=== PATIENT | female | born 1970 | race Caucasian/White ===

== ENCOUNTER 2024-04-23 16:52 | Emergency (ER) | payer OTHER, SELFPAY ==
[2024-04-23 17:02] VITALS: BP 165/69; PULSE 76; RESP 16; TEMP 36.6; O2SAT 98
--- NOTE | 2024-04-23 21:57 | ED.GENADULT ---
HPI - General Adult General Chief complaint: Back Pain/Injury Stated complaint: back and legs numb x 3 days Time Seen by Provider: 04/23/24 21:48 History of Present Illness HPI narrative: patient 53-year-old female who presents emergency department chief complaint of back pain and increasing weakness. Patient reports that she is scheduled to have surgery on the 3rd mode reports that she has been having increasing pain in feels though her legs are little bit weaker. The patient reports no bowel or bladder dysfunction but does report that she has had some urgency which she has had to hernandez immediately to the bathroom before she would urinate or defecate. Patient denies fever denies any trauma Related Data Home Medications Medication Instructions Recorded Confirmed amlodipine 5 mg tablet 5 mg PO DAILY 03/30/24 aspirin 81 mg tablet,delayed 81 mg PO DAILY 03/30/24 release divalproex 500 mg tablet,delayed 500 mg PO Q12H 03/30/24 release Allergies Allergy/AdvReac Type Severity Reaction Status Date / Time Penicillins Allergy unknown Verified 03/30/24 14:59 Owapwji-DXU-WtC Reductase Allergy Unknown Verified 03/30/24 14:59 Inhibitor Sulfa (Sulfonamide Allergy Unknown Verified 03/30/24 14:59 Antibiotics) tramadol Allergy Unknown Verified 03/30/24 14:59 serequal Allergy Unknown Uncoded 03/30/24 14:59 welbutrin Allergy Unknown Uncoded 03/30/24 14:59 Review of Systems Review of Systems: A 10 system review of systems was completed on the patient and is negative except for what is stated in the HPI. Nursing and ancillary documentation was reviewed. [facility] Past Medical History Medical History Anxiety CAD (coronary artery disease) Diabetes GERD (gastroesophageal reflux disease) Headache Heart attack Heart disease Hypertension IBS (irritable bowel syndrome) Family History Family History Father Cancer Diabetes mellitus Hypertension Social History Social History Smoking status: Unknown if ever smoked Do You Feel Safe in your Home?: Yes Lack of Transportation: No Lack of Food: Never True Current Housing: I Have Housing Concerned About Future Housing: No Difficulty Paying Gas/Electric Bills: No Difficulty Paying for Meds: No Currently Unemployed: No Education: Bachelor's Degree Difficulty w/ Childcare or Family Care: No Exam Narrative: GENERAL: Well-appearing, well-nourished, and in no acute distress. HEAD: Normocephalic, atraumatic. EYES: PERRLA and EOMI. ENT: Nares clear, no rhinorrhea or epistaxis. Mucous membranes moist. NECK: Supple. CHEST: Clear to auscultation. No respiratory distress. HEART: Regular rate and rhythm. No murmur heard. Normal peripheral pulses. ABDOMEN: Soft, nontender, nondistended, normal active bowel sounds. EXTREMITIES: Normal range of motion. No edema. SKIN: Warm, dry, no rash. NEURO: No focal deficits. Alert and oriented x3. slight decrease in plantar flexion dorsiflexion of the left lower extremity compared to the right patient reports that she has had weakness there but feels as though it is a little bit more pronounced PSYCH: Normal mood and affect. Course Vital Signs Vital signs: Vital Signs Temperature 36.6 C 04/23/24 17:02 Pulse Rate 76 04/23/24 17:02 Respiratory Rate 16 04/23/24 17:02 Blood Pressure 165/69 H 04/23/24 17:02 Pulse Oximetry 98 04/23/24 17:02 Oxygen Delivery Room Air 04/23/24 17:02 Temperature 36.6 C 04/23/24 17:02 Pulse Rate 76 04/23/24 17:02 Respiratory Rate 16 04/23/24 17:02 Blood Pressure 165/69 H 04/23/24 17:02 Pulse Oximetry 98 04/23/24 17:02 Oxygen Delivery Room Air 04/23/24 17:02 Medical Decision Making [facility] Narrative Medical decision making narrative: nickie
[2024-04-23] MEDS: HYDROmorphone HCL INJ (*CRX) 1 MG/ML SYR IV PUSH (22:27)
[2024-04-23 22:40] LABS: Basophils Percent Auto 0.3 % (0.2-1.2); Eosinophils Absolute Auto 0.2 K/mm3 (0-0.3); Eosinophils Percent Auto 2.6 % (0-4.4); Hematocrit 39.7 % (37.0-47.0); Hemoglobin 13.5 g/dL (12.0-15.0); Immature Granulocyte Absolute 0.01 K/mm3 (0.00-0.031); Immature Granulocyte Percent A 0.1 % (0-0.5); Lymphocytes Absolute Auto 2.53 K/mm3 (0.9-3.2); Lymphocytes Percent Auto 37.1 % (18.3-44.2); Mean Corpuscular Hemoglobin 29.6 pg (26-34); Mean Corpuscular Volume 87.1 fl (80-100); Mean Platelet Volume 10.2 fl (7.4-10.4); Monocytes Absolute Auto 0.4 K/mm3 (0.1-0.6); Monocytes Percent Auto 5.7 % (2.6-8.5); Neutrophils Absolute Auto 3.7 K/mm3 (1.3-6.7); Neutrophils Percent Auto 54.2 % (45.5-73.1); Platelet Count Result 266 k/mm3 (150-375); Red Blood Count 4.56 M/mm3 (4.2-5.4); Red Cell Distribution Width 15.6 % (11.5-14.5); White Blood Count 6.8 K/mm3 (4.5-10.0)
[2024-04-23] MEDS: ONDANSETRON INJ 4 MG/2 ML VIAL IV PUSH (22:51)
[2024-04-23 23:00] LABS: Alanine Aminotransferase 23 U/L (6-35); Albumin Level 4.2 g/dL (3.5-5.1); Alkaline Phosphatase 63 U/L (38-126); Anion Gap 8 mmol/L (4-12); Aspartate Amino Transferase 24 U/L (14-36); Bilirubin,Total 0.2 mg/dL (0.2-1.3); Blood Urea Nitrogen 15 mg/dL (7-17); Calcium 9.1 mg/dL (8.4-10.2); Carbon Dioxide 29 mmol/L (22-30); Chloride 100 mmol/L (98-107); Estimated Glomerular Filt Rate > 60; Glucose 120 mg/dL (65-110); Potassium 3.6 mmol/L (3.4-5.0); Sodium 137 mmol/L (137-145)
[2024-04-24] MEDS: HYDROmorphone HCL INJ (*CRX) 1 MG/ML SYR IV PUSH (00:16)
[2024-04-24 00:53] VITALS: BP 118/87; PULSE 78; RESP 16; TEMP 36.6; O2SAT 98
== END 2024-04-24 00:55 | disposition home or self-care (01) ==
PROVIDERS: Emergency Provider Emergency Medicine; PCP Family Medicine
DX: M54.17 Radiculopathy, lumbosacral region (principal); I25.10 Atherosclerotic heart disease of native coronary artery without angina pectoris; I11.9 Hypertensive heart disease without heart failure; I25.2 Old myocardial infarction; E11.9 Type 2 diabetes mellitus without complications; K21.9 Gastro-esophageal reflux disease without esophagitis; K58.9 Irritable bowel syndrome, unspecified; Z79.82 Long term (current) use of aspirin; Z79.899 Other long term (current) drug therapy
CPT/HCPCS: 36415; 80053; 85025; 96374; 96375; 99284; J1170; J2405

== ENCOUNTER 2024-04-30 13:11 | Outpatient (CLI) | payer OTHER, SELFPAY ==
--- NOTE | ~2024-04-30 | XR_ITS ---
EXAMINATION: XR chest 2V 04/30/2024 13:50 INDICATION: Preop PROCEDURE: 2 view chest COMPARISON: No prior studies for comparison. FINDINGS: The lungs are clear. The cardiomediastinal silhouette is within normal limits. There are no pleural effusions. There is no pneumothorax suspected. IMPRESSION: 1: NO ACUTE CARDIOPULMONARY DISEASE. Reviewed, dictated and finalized at location B.
[2024-04-30 14:12] LABS: Hemoglobin A1C 5.8 % (<5.7)
[2024-04-30 14:27] LABS: Valproic Acid 33.3 ug/mL (50-120)
== END 2024-04-30 13:12 | disposition home or self-care (01) ==
PROVIDERS: Anesthesiology; PCP Family Medicine; Visit Provider Neurological Surgery
DX: Z01.818 Encounter for other preprocedural examination (principal); M54.17 Radiculopathy, lumbosacral region; G40.909 Epilepsy, unspecified, not intractable, without status epilepticus
CPT/HCPCS: 36415; 71046; 80164; 83036

== ENCOUNTER 2024-05-04 01:34 | Day surgery (SDC) | payer OTHER, SELFPAY ==
[2024-04-27 14:15] VITALS: BMI 32.8
--- NOTE | 2024-04-27 14:56 | PC.NURSE ---
Report to the Outpatient Waiting Room, entrance under the green pavilion located off [facility], at time _0700 on date 05/04/24 . Planned Procedure Time: 0900 .? Time changes happen often and if your time is changed the preop area will call you the afternoon before. - You and your visitor will be asked to self-screen and do not enter if you have any COVID symptoms. Please call surgeon if you need to reschedule. - A mask is optional within the hospital at this time. Patients may have clear liquids (water, carbonated beverages, clear teas, apple juice) until 3 hours prior to surgery with a maximum of 20 ounces. - No food from midnight until time of surgery and no smoking Take only the following medications with a SIP of water on the morning of surgery: NORVASC, PAIN PILL DO NOT STOP ANY OF YOUR OTHER PRESCRIPTION MEDICATIONS PRIOR TO SURGERY EXCEPT THE FOLLOWING Medications to discontinue per physician ASA Date to take last dose___PT ADVISED TO STOP ASA 5 DAYS PRIOR TO SURGERY __04/29/24 Please no make-up, nail nepali, hairspray, perfume, deodorant, or body powder the day of surgery.? No jewelry (including any body piercings) or valuables the day of surgery, leave them at home.? Please take a shower or bath the night before, or the morning of, surgery with an antibacterial soap.? Wear comfortable, loose fitting clothing.? Children are encouraged to wear pajamas. - Jewelry must be removed prior to entering the operating room.? Rings and piercings that are not removed may be cut off. - The hospital will not accept responsibility for valuables.? - Please leave all valuables, including medications, at home the day of surgery. If you are going home after surgery, a licensed lumber driver must drive you home.? - NO public transportation without another adult if you receive anesthesia. - We recommend that an adult stay with you for 24 hours following discharge. - We also recommend that you do not drive, make important decision, drink alcoholic beverages, or take any drugs that were not prescribed by your health care provider for at least 24 hours after your discharge time. Follow any additional instructions given to you from your surgeon. Telephone instructions given to __HEIDI and asked if any additional questions and then verbalized understanding. Patient advised to call surgeon office or pre surgery nurse liaison [phone] if any additional questions.
[2024-05-04] VITALS (10 sets, daily range): BP systolic 103–160; BP diastolic 64–82; PULSE 54–79; RESP 13–20; TEMP 36.2–36.3; O2SAT 98–100
--- NOTE | ~2024-05-04 | XR_ITS ---
XR fluoroscopy no charge Indication: Left L4-5 hemilaminectomy TECHNIQUE: Fluoroscopy used during Left L4-5 hemilaminectomy performed by [Jordy Bobo MD ] on 05/04/2024. 5 seconds of fluoroscopy with 2 fluoroscopic images captured. FINDINGS: Correlate with procedure note. IMPRESSION: Fluoroscopy used during Left L4-5 hemilaminectomy. Reviewed, dictated and finalized at location B.
[2024-05-04] MEDS: LACTATED RINGERS 1,000 ML 125 ML IV CONT (07:50)
[2024-05-04 08:10] LABS: Glucose Point of Care 110 mg/dl (65-105)
--- NOTE | 2024-05-04 08:38 | WPDANESEPPF ---
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 Patient Data Age: 53 Gender: F Height: 1.65 m Weight: 88.8 kg Last Vital Signs Temp 36.2 C L 05/04/24 07:11 Pulse 78 05/04/24 07:11 Resp 20 05/04/24 07:11 BP 154/82 H 05/04/24 07:11 Pulse Ox 100 05/04/24 07:11 O2 Del Method Room Air 05/04/24 07:11 Allergies Allergy/AdvReac Type Severity Reaction Status Date / Time Penicillins Allergy Intermediate RASH, RESP Verified 05/04/24 07:04 DISTRESS Xfjhjma-FLF-JoZ Reductase Allergy Intermediate INEFFECTIV Verified 05/04/24 07:04 Inhibitor E Sulfa (Sulfonamide Allergy Intermediate SWELLING, Verified 05/04/24 07:04 Antibiotics) RESP DISTRESS tramadol Allergy Intermediate RESP Verified 05/04/24 07:04 DISTRESS welbutrin Allergy Intermediate RESP Uncoded 05/04/24 07:04 DISTRESS, SWELLING Home Medications Medication Instructions Recorded Confirmed Type amlodipine 5 mg tablet 5 mg PO DAILY 03/30/24 05/04/24 History aspirin 81 mg tablet,delayed 81 mg PO DAILY 03/30/24 05/04/24 History release divalproex 500 mg tablet,delayed 500 mg PO Q12H 03/30/24 05/04/24 History release hydrocodone 5 mg-acetaminophen 325 1 tablet PO BID PRN pain #30 tabs 03/30/24 05/04/24 Rx mg tablet oxycodone-acetaminophen 5 mg-325 1 tablet PO Q6H PRN pain 3 days 04/23/24 04/27/24 Rx mg tablet (Percocet) #12 tabs ergocalciferol (vitamin D2) 1,250 1,250 mcg PO MONTHLY 04/27/24 05/04/24 History mcg (50,000 unit) capsule (Vitamin D2) Laboratory Tests 05/04/24 08:08 POC Capillary Glucose 110 H mg/dl (65-105) Patient hx anesthesia problems: none Family hx anesthesia problems: none Results Review: All pre-operative results and documents have been reviewed as part of the pre-operative evaluation. [facility] Past Medical History Medical History Anxiety CAD (coronary artery disease) Diabetes GERD (gastroesophageal reflux disease) Headache Heart attack Heart disease Hypertension IBS (irritable bowel syndrome) Family History Family History Father Cancer Diabetes mellitus Hypertension Social History Social History Smoking packs per day: 0.5 Smoking cigarettes per day: 10.0 Years smoked: 40 Smoking pack-years: 20.00 Smoking status: Former smoker Smoking end date: 09/01/22 Alcohol intake: never Substance use: never Substance use type: does not use Do You Feel Safe in your Home?: Yes Lack of Transportation: No Lack of Food: Never True Current Housing: I Have Housing Concerned About Future Housing: No Difficulty Paying Gas/Electric Bills: No Difficulty Paying for Meds: No Currently Unemployed: No Education: Bachelor's Degree Difficulty w/ Childcare or Family Care: No Living arrangements: with family Spiritual care concerns: No Anes - Eval Final PreProcedure Day of Procedure 05/04/24 08:38 Patient weight: obese Heart: regular rate and rhythm Lungs: decreased breath sounds Airway: Mallampati scale class 1 Neurological: alert and oriented Last oral intake: >/= 8 hours ASA classification: III Emergent: no Anesthetic plan: proceed Anesthesia type and monitoring: general ETT and standard monitoring Results Review: All pre-operative results and documents have been reviewed as part of the pre-operative evaluation. Informed Consent: The patient's anesthetic plan and its attendant risks and benefits were discussed with the patient/family/POA. Questions were solicited and answers provided to the satisfaction of the patient/family/POA.
--- NOTE | 2024-05-04 09:23 | PM.IMHP ---
H&P: HPI History of Present Illness Date/Time: 05/04/24 09:23 Chief Complaint: back and leg pain Narrative: Tammy is a 53-year-old female with a 9 year history of low back and mid back pain which has progressively worsened over the course of time. This has been especially bad the last couple of years. Her discomfort is both radicular and claudicatory. She has undergone multiple courses of physical therapy and frequent epidural steroid injections. apparently she saw a surgeon in the past who recommended decompression and fusion, likely at L4-5. She has been managed medically through Dr. Jackson who has been prescribing chronic opioids over the course of the past year. She has been prescribed upwards of 8 tablets of hydrocodone and or Percocet 5/325 mg tablets daily Although the patient states that she only takes 1 or 2 a day, typically. Physical therapy made her pain worse. She has participated in physical therapy courses at least twice. She continues home exercises as tolerated. However over the course of the past 1-2 years she has been developing progressive worsening of low back and lower extremity pain especially on the left side with weakness and numbness. Her pain is exacerbated by prolonged sitting, standing or walking. Pain will improve with sitting down or with forward flexion. She has been noticing increasing difficulty maintaining control of her bowel and bladder although this is somewhat vague as she describes urgency and not incontinence. Review of Systems Review of Systems: Const All systems reviewed & are unremarkable except as noted in HPI and below Denies chills, Denies fever(s), Denies weakness, Denies weight gain and Denies weight loss Eyes Denies change in vision and Denies diplopia ENT Denies neck pain and Denies disequilibrium Card Denies chest pain and Denies dyspnea Resp Denies cough and Denies dyspnea GI Denies abdominal pain, Denies change in bowel habits, Denies fecal incontinence and Denies vomiting Denies hematuria, Denies oliguria, Denies difficulty urinating, Denies dysuria, Denies urinary frequency, Denies urinary hesitancy, Denies urinary incontinence and Denies urinary urgency Musc Reports as per HPI, Reports back pain, Denies muscle weakness, Denies neck pain, Reports numbness and Denies stiffness Skin/ Breast Reports system reviewed and no additional complaints, except as documented Neuro Reports as per HPI, Denies burning sensations, Denies focal weakness, Reports numbness, Denies Other visual disturbances, Reports radicular pain, Reports paresthesias, Denies disequilibrium and Denies weakness Psych Reports no additional complaints, Denies depression and Denies hopelessness Endo Reports no additional complaints and Denies polyuria Justino/ Lymph Reports no additional complaints Aller/ Immun Reports no additional complaints PMFSH Past Medical History Medical History Anxiety CAD (coronary artery disease) Diabetes GERD (gastroesophageal reflux disease) Headache Heart attack Heart disease Hypertension IBS (irritable bowel syndrome) Family History Family History Father Cancer Diabetes mellitus Hypertension Social History Social History Smoking packs per day: 0.5 Smoking cigarettes per day: 10.0 Years smoked: 40 Smoking pack-years: 20.00 Smoking status: Former smoker Smoking end date: 09/01/22 Alcohol intake: never Substance use: never Substance use type: does not use Do You Feel Safe in your Home?: Yes Lack of Transportation: No Lack of Food: Never True Current Housing: I Have Housing Concerned About Future Housing: No Difficulty Paying Gas/Electric Bills: No Difficulty Paying for Meds: No Currently Unemployed: No Education: Bachelor's Degree Difficul
--- NOTE | 2024-05-04 09:26 | WPDHPUPDATE1 ---
History and Physical Update Update Date/Time: 05/04/24 09:26 History and Physical has been reviewed, including an updated exam of the patient. There are NO changes in the patient's condition. Risks, benefits, and alternatives have been discussed and questions answered. Patient agrees to proceed with procedure.
[2024-05-04] MEDS: ceFAZolin 2 GM/D5W 50 ML 2 GM/50 ML BAG IVPB (09:30)
[2024-05-04] MEDS: LIDO 1%/EPINEPHRINE 1:100,000 20 ML VIAL 10 ML INFILTRATE (09:52)
[2024-05-04] MEDS: LACTATED RINGERS 1,000 ML 30 ML IV CONT (10:53)
[2024-05-04] MEDS: fentaNYL CITRATE INJ (*CRX) 100 MCG/2 ML VIAL 25 MCG IV PUSH ×8 (11:00→11:36)
--- NOTE | 2024-05-04 11:00 | W.PM.PROC2 ---
Procedure Note - Detailed Date of Procedure 05/04/24 Pre-op Diagnosis L4-5 stenosis Post-op Diagnosis Same Procedure Performed Left L4-5 hemilaminectomy Surgeon Jordy Bobo MD Anesthesia General Description of Procedure The patient was brought to the operating room in the supine position, was sedated, intubated placed under general anesthesia in routine fashion. She was then turned into the prone position on a Enrico frame. The of operation on her back was examined, marked for incision, prepped and draped in routine sterile fashion. Incision was marked over the L4-L5 spinous processes in the midline. This area was injected with 0.5% lidocaine with [id number] epinephrine. Intravenous antibiotics were use prior to incision. Incision was made with 10 blade scalpel down to the lumbodorsal fascia. Subperiosteal dissection of the muscle soft tissue away from spinous process and lamina was performed with a subperiosteal elevator and Bovie cautery. A verifying x-rays obtained to verify the level of operation. A Midas Ziyad drill was used to perform a hemilaminectomy and medial facetectomy. Under microscopy the yellow ligament in the midline was removed using Kerrison punches. In the lateral recess 1st hips laterally and then contralaterally a dental instrument was used to define a plane with the dura. Curved curette was used to lift overgrown ligament. Kerrison punches were used to remove that ligament. This was done until a dental instrument could be placed in the lateral epidural space to confirm lack of compression and feel above and below the nerve root out to the foramen. The wound was then copiously irrigated with bacitracin irrigation all bleeding stopped with bipolar and Bovie cautery and Gelfoam thrombin powder. The wound was then closed in layered fashion with 2-0 Vicryl interrupted sutures in the lumbodorsal fascia and Julio's layer. 3-0 Vicryl buried interrupted sutures were placed in the dermis and skin was closed with a running 4-0 Monocryl subcuticular stitch and dressed with Dermabond. Patient was allowed to wake up in the operating room and was taken to the recovery room in stable condition. There were no immediate complications of this operation. All counts were reported correct in the case. Blood loss was 25 cc. The patient was neurologically at her baseline postoperatively. CPT codes: 05597, 01982, 22464 Estimated Blood Loss 25 IV Fluids 1,000 Complications None Condition Stable Disposition PACU [facility] Billing Surgery - Charge Forward: Surgery Billing
[2024-05-04] MEDS: HYDROmorphone HCL INJ (*CRX) 1 MG/ML SYR IV PUSH (12:00)
[2024-05-04] MEDS: oxyCODONE HCL (*CRX) 5 MG TAB IR PO (12:22)
== END 2024-05-04 13:08 | disposition home or self-care (01) ==
PROVIDERS: PCP Family Medicine; Visit Provider Neurological Surgery
PROC: (CPT 63005; principal; 2024-05-04 09:00)
DX: M48.062 Spinal stenosis, lumbar region with neurogenic claudication (principal); M54.17 Radiculopathy, lumbosacral region; I25.10 Atherosclerotic heart disease of native coronary artery without angina pectoris; E11.9 Type 2 diabetes mellitus without complications; I11.9 Hypertensive heart disease without heart failure; I25.2 Old myocardial infarction; K21.9 Gastro-esophageal reflux disease without esophagitis; F41.9 Anxiety disorder, unspecified; Z79.82 Long term (current) use of aspirin; Z87.891 Personal history of nicotine dependence; E66.9 Obesity, unspecified; Z68.32 Body mass index [BMI] 32.0-32.9, adult
CPT/HCPCS: 63047; 36415; 71046; 80164; 82948; 83036; 99199; A9270; J0330; J0690; J1100; J1170; J2250; J2405; J2704; J3010; J7120

== ENCOUNTER 2024-12-02 13:24 | Outpatient (CLI) | payer MEDICAID, SELFPAY ==
--- OUTSIDE RECORDS SUMMARY | 2024-12-02 13:49 | XMS_ITS | Clinical Summary ---
Author Organization [facility] Address [facility] [facility] [place] [address] Care Team Providers Care Band Saw Operator Cake Cutting Name Role Phone Milly Cordoba MD Primary Care Provider [phone] Source Comments [facility],non-owned Affiliates and Associated Physician Practices is amultiple site organization consisting of ambulatory clinics and hospital sitesin [place], [place], [place] and [place]. This disclosure is being madepursuant to the Care Everywhere program and may not contain all information available regarding this patient. Last updated 18.[facility] Allergies Active Allergy Reactions Criticality Noted Date Comments Bupropion Shortness of Breath,Angioedema High 01/23 Penicillins Rash Medium 11/05/2018 Fluoxetine Anaphylaxis High 08/30/2019 Quetiapine Shortness of Breath,Angioedema High 11/05 Sertraline Other Medium Mood swings Sulfa Drugs Rash,Unknown High 11/05/2018 Tramadol Other 12/15/2018 feel weird Medications * Be aware that medications may not be up to date on this document. Alwaysverify current medications with the patient. Medication Sig Dispensed Refills Start Date End Date Status divalproex ER 24hr (DEPAKOTE ER) 500 MG tablet Take 500 mg by mouth 2 times daily Active metFORMIN (GLUCOPHAGE) 500 MG tablet Take 1,000 mg by mouth 2 times daily with morning and evening meal Active aspirin EC (ECOTRIN) 81 MG tablet Take 81 mg by mouth once daily Active nitroGLYCERIN (NITROSTAT) 0.4 MG tablet Dissolve 0.4 mg under the tongue every 5 minutes as needed for Angina Active ONETOUCH DELICA LANCETS 33G MISC USE DIRECTED TO check sugar ONCE daily 2 04/29/2019 Active REPATHA SURECLICK 140 MG/ML auto-injector Inject 1 Pen subcutaneously every 14 days 11/30/2020 Active HYDROcodone-aceta minophen (NORCO) 5-325 MG tablet Take 1 (one) tablet to 2 (two) tablets by mouth every 6 hours as needed for Pain 28 tablet 01/01/2021 Active HYDROcodone-aceta minophen (NORCO) 5-325 MG tablet Take 1 (one) tablet by mouth every 6 hours as needed for Pain 20 tablet 01/05/2021 Active Active Problems Problem Noted Date Diagnosed Date Statin intolerance 09/26/2020 Overview (01/16/2021): Last Assessment & Plan: Seeing cardiology now - working on approval for injectable meds - Praluent or Repatha. CT (myocardial infarction) 08/23/2020 Overview (08/23/2020): Overview: TIMES 2 Chronic bilateral low back pain 08/19/2020 Overview (01/16/2021): Last Assessment & Plan: Seeing pain management, but needing new referral to provider closer to home. Will refer. I will manage her pain meds in the interim. History of fundoplication 02/28/2020 Overview (01/16/2021): Added automatically from request for surgery [id number] Chronic pain of both knees 12/28/2019 Overview (01/16/2021): Last Assessment & Plan: New and worsening Order xrays Order labs to r/o connective tissue d/o Take NSAID Chronic pain of both shoulders 12/28/2019 Overview (01/16/2021): Last Assessment & Plan: Opal TOMLIN Seeing ortho Doing PT Last Assessment & Plan: New and worsening Order xrays Order labs to r/o connective tissue d/o Take NSAID Hip pain, bilateral 12/28/2019 Overview (01/16/2021): Last Assessment & Plan: Opal TOMLIN New pain management referral Chronic fatigue 12/13/2019 Overview (01/16/2021): Last Assessment & Plan: Labs normal Possibly secondary to her PRAKASH so will get reevaluated Chronic neck pain 12/13/2019 Overview (01/16/2021): Last Assessment & Plan: Refer to new pain management Opal TOMLIN Last Assessment & Plan: Refer to new pain management in this area PRAKASH (obstructive sleep apnea) 12/13/2019 Overview (01/16/2021): Last Assessment & Plan: Uncontrolled possible Order referral to sleep center Atherosclerosis 10/25/2019 Epileptic seizure 10/16/2019 Anxiety 09/16/2019 Overview (01/16/2021): Last Assessment & Plan: Try Buspar Meds failed prior: Lexapro, Celexa, Zoloft, diazepam Vitamin D deficiency 09/16/2019 Overview (01/16/2021): Last Assessment & Plan: Stable Naturally controlled Chest pain 09/06/2019 Diabetes mellitus 06/15/2019 Type 2 diabetes mellitus wit hout complication, without long-term current use of insulin 06/15/2019 Overview (01/16/2021): Last Assessment & Plan: Stable, no changes. Continue current regimen with metformin. Will monitor glucose at home more closely. New meter/supplies sent to pharmacy. Will get report from eye exam. Taking Aspirin. Not on statin - intolerant. Seeing cardiology. 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 Gastroesophageal reflux disease without esophagi tis 12/17/2018 Claudication 09/15/2018 Seizure 09/14/2018 Essential hypertension 06/09/2018 Overview (01/16/2021): Last Assessment & Plan: Stable without meds Tobacco abuse counseling 06/09/2018 Shortness of breath 06/09/2018 Dyslipidemia 06/09/2018 Overview (01/16/2021): Last Assessment & Plan: Uncontrolled Add fish oil Cont zetia Coronary artery disease invo lving [place] coronary artery of [place] heart without angina pectoris 06/09/2018 Overview (01/16/2021): Last Assessment & Plan: On Plavix - h/o stenting and recent CT x 2 Immunizations Name Administration Dates Next Due INFLUENZA VACCINE 06/30/2019 INFLUENZA VACCINE, QUADR. (F LUZONE; FLULAVAL; FLUARIX; AFLURIA QUADRIVALENT; 6MO+), 0.5 ML (IIV4) 06/07/2018 Family History Medical History Relation Name Comments Diabetes - Type 1 Father Cancer - Colon Maternal Grandfather Cancer - Colon Maternal Grandmother CAD (Coronary Artery Disease) Paternal Grandmother Diabetes - Type 1 Paternal Grandmother Diabetes - Type 1 Sister Relation Name Status Comments Father Alive Maternal Grandfather Maternal Grandmother Mother Alive Paternal Grandfather Paternal Grandmother Sister Social History Tobacco Use Types Packs/Day Years Used Date Smoking Tobacco: Every Day Cigarettes Smokeless Tobacco: Never Tobacco Cessation:Ready to Q uit: No; Counseling Given: Yes Alcohol Use Standard Drinks/Week Comments Not Currently 0 (1 standard drink = 0.6 oz pur e alcohol) once/month Sex and Gender Information Value Date Recorded Sex Assigned at Not on file Gender Identity Not on file Sexual Orientation Not on file Last Filed Vital Signs Vital Sign Reading Time Taken Comments Blood Pressure 111/67 01/01/2021 3:02 PM CDT Pulse 65 01/01/2021 3:02 PM CDT Temperature 36.5 C (97.7 F) 01/01/2021 2:36 PM CDT Respiratory Rate 16 01/01/2021 3:02 PM CDT Oxygen Saturation 100% 01/01/2021 3:02 PM CDT Inhaled Oxygen Concentration - - Weight 88 kg (194 lb) 02/13/2021 10:31 AM CDT Height 165.1 cm (5' 5 ) 02/13/2021 10:31 AM CDT Body Mass Index 32.28 02/13/2021 10:31 AM CDT Plan of Treatment Health Maintenance Due Date Last Done Comments COLOGUARD (AGES 45-75) - COLON CA SCREENING 1972 CT COLONOGRAPHY - COLON CA SCREENING 1972 FIT - COLON CA SCREENING 1972 FLEX SIG - COLON CA SCREENING 1972 PAP SMEAR 1972 HIV SCREENING 1987 HEPATITIS C SCREENING 09/21/1990 DTAP/TDAP/TD VACCINES (1 - Tdap) 1991 HEPATITIS B VACCINE (1 of 3 - 19+ 3-dose series) 1991 PNEUMOCOCCAL VACCINE 50+ (1 of 2 - PCV) 1991 DIABETES-STATIN 2012 DIABETES RETINOPATHY SCREENING 08/23/2020 DIABETES-FOOT EXAM WITH MONOFILAMENT 08/23/2020 ZOSTER VACCINE (1 of 2) 2022 COVID-19 VACCINE (1 - 2023- season) 2024 DIABETES-HGB A1C 08/06/2024 02/05/2024, 08/04/2020 DEPRESSION SCREENING 09/01/2024 DIABETES - URINE PROTEIN SCREENING 09/01/2024 MAMMOGRAM 05/26/2025 05/26/2023, 08/18/2020 DIABETES-SERUM CREATININE 09/20/20252024, 09/20/2024, 02/05/2024, Additional history exists COLON MONITORING 10/02/2028 10/02/2018 COLONOSCOPY - COLON CA SCREENING 10/02/2028 10/02/2018 Colorectal Cancer Screening 10/02/2028 INFLUENZA VACCINE Completed 05/24/2024, , 06/01/2022, Additional history exists HIB VACCINE Aged Out No longer eligi ble based on patient's age to complete this topic HPV VACCINE Aged Out No longer eligi ble based on patient's age to complete this topic MENINGOCOCCAL (Group B) VACCINE SHARED DECISION-MAKING Aged Out No longer eligible based on patient's age to complete this topic MENINGOCOCCAL GROUPS A/C/Y/W VACCINE Aged Out No longer eligible based on patient's age to complete this topic Medical Devices Implanted Type Area Dry Placer Machine Operator Device Identifier Shelf Expiration Date Model / Serial / Lot Xience Stent Stent - Vascular Bioinductive Implant With Arthroscopic Delivery System Implanted:Qty: 1 on 01/01/2021 by Jordy Grewal MD at [facility] Left: Shoulder 08/22/2023 [id number] / / [id number] Description:MM Tendon Anchors Implanted:Qty: 1 on 01/01/2021 by Jordy Grewal MD at [facility] Left: Shoulder 06/26/2023 2504-1 / / [id number] Description:MM Bone Anchors Implanted:Qty: 1 on 01/01/2021 by Jordy Grewal MD at [facility] Left: Shoulder 10/17/2022 [id number] / / [id number] Description:MM Tendon Anchors Implanted:Qty: 1 on 01/01/2021 by Jordy Grewal MD at [facility] Left: Shoulder 10/13/2023 2504-1 / / [id number] Description:MM Procedures Procedure Name Priority Date/Time Associated Diagnosis Comments BASIC METABOLIC PANEL (CALCIUM TOTAL) AM Draw 12/18/2018 2:48 AM CDT Gastroesophageal reflux disease without esophagitis ENDOSCOPY, COLON, SCREENING Routine 10/02/2018 from Last 3 Months or Most Recently Relevant to Health Maintenance Results * (ABNORMAL) BASIC METABOLIC PANEL (CALCIUM TOTAL) (12/18/2018 2:48 AM CDT) Glucose 95 74 - 106 mg/dL 12/18/2018 3:50 AM CDT [facility] Sodium 139 136 - 145 mmol/L 12/18/2018 3:50 AM CDT [facility] Potassium 3.6 3.5 - 5.1 mmol/L 12/18/2018 3:50 AM CDT [facility] Chloride 106 98 - 107 mmol/L 12/18/2018 3:50 AM CDT [facility] CO2 28 22 - 31 mmol/L 12/18/2018 3:50 AM CDT [facility] Calcium 8.0(L) 8.5 - 10.1 mg/dL 12/18/2018 3:50 AM CDT [facility] Anion Gap 5(L) 8 - 16 mmol/L 12/18/2018 3:50 AM CDT [facility] BUN 10 7 - 21 mg/dL 12/18/2018 3:50 AM CDT [facility] Creatinine 0.74 0.50 - 1.30 mg/dL 12/18/2018 3:50 AM CDT [facility] eGFR by MDRD >60 >60 mL/min/1.7 3m2 12/18/2018 3:50 AM CDT [facility] eGFR by MDRD >60 >60 mL/min/1.7 3m2 12/18/2018 3:50 AM CDT [facility] Blood BLOOD SPECIMEN / Unknown Lab Venipuncture / Unknown 12/18/2018 2:48 AM CDT 12/18/2018 3:09 AM CDT Shelton Azevedo MD LAB - CHEMISTRY [facility] Organization Address City/State/ZIP Co de Phone Number [facility] [address] [id number] * ENDOSCOPY, COLON, SCREENING (10/02/2018) Scanned Document GI PROCEDURE ORDERAB LES from Last 3 Months or Most Recently Relevant to Health Maintenance Advance Directives * Full Code (Latest Code Status on File) Date Activated Date Inactivated Comments 12/17/2018 10:40 AM 12/18/2018 3:52 PM Care Teams Band Saw Operator Cake Cutting Relationship Specialty Start Date End Date Milly Cordoba MD [address] [place] [address] [phone] PCP - General 03/13/21
--- OUTSIDE RECORDS SUMMARY | 2024-12-02 13:49 | XMS_ITS | Encounter Summary ---
Author Organization [facility] Address [facility] [facility] [place] [address] Care Team Providers Care Head Up Operator Name Role Phone Milly Cordoba MD Primary Care Provider [phone] Patricia Nichols Primary Care Provider [phone] Milly Cordoba MD Primary Care Provider [phone] Vesna Parry MD Primary Care Provider [phone] Patricia Nichols Primary Care Provider [phone] Milly Cordoba MD Primary Care Provider [phone] Encounter Details Date Type Department Care Team (Late st Contact Info) Description 12/14/2019 Telephone [facility] [address] [place] [address] Isabelle Caldera, RN Social History Tobacco Use Types Packs/Day Years Used Date Smoking Tobacco: Every Day Cigarettes Smokeless Tobacco: Never Alcohol Use Standard Drinks/Week Comments Yes 0 (1 standard drink = 0.6 oz pur e alcohol) once/month Sex and Gender Information Value Date Recorded Sex Assigned at Not on file Gender Identity Not on file Sexual Orientation Not on file documented as of this encounter Progress Notes * Isabelle Caldera RN - 12/14/2019 10:43 AM CDT Reached out to pt to let her know we are thinking of her and we still have her on the list to schedule once we are able to schedule non-emergent procedures. Pt states she is doing well and understands scheduling delay. Pt thankful for call. documented in this encounter Plan of Treatment Not on file documented as of this encounter Visit Diagnoses Not on filedocumented in this encounter Care Teams Head Up Operator Relationship Specialty Start Date End Date Milly Cordoba MD [address] [place] [phone] PCP - General Family Medicine 10/27/18 12/04/20 Patricia Nichols PA [address] [facility] [address] [place] [phone] PCP - General Physician Cutter Head Sharpener 12/05/20 12/24/20 Milly Cordoba MD [address] [place] [phone] PCP - General 12/25/20 12/28/20 Vesna Parry MD [address] [facility] [address] [place] [address] [phone] PCP - General Family Medicine 12/29/20 01/10/21 Patricia Nichols PA [address] [facility] [address] [place] [address] [phone] PCP - General 01/11/21 03/12/21 Milly Cordoba MD [address] [place] [phone] PCP - General 03/13/21 documented as of this encounter
--- OUTSIDE RECORDS SUMMARY | 2024-12-02 13:49 | XMS_ITS | Clinical Summary ---
Author Organization [facility] Address [address] [place] [address] Phone Care Team Providers Care Hospice/Home Health Aide Name Role Phone Milly Cordoba MD Primary Care Provider [phone] Andrzej Kelsey MD Unavailable [phone] Allergies Active Allergy Reactions Criticality Noted Date Comments Bupropion Swelling,Shortness o f Breath High 11/24/2014 Citalopram Anxiety Low 10/25/2019 Colesevelam Anaphylaxis High 06/27/2020 Dapagliflozin Other (see Comments) Low 03/15/2021 Headache Dexlansoprazole Nausea 03/09/2024 Patient was dizzy, felt like throat was closing and rash, itching and felt like she was going to pass out. Famotidine Itching Low 01/21/2020 Fluoxetine Anaphylaxis,Other (s ee Comments) High 02/03/2018 mean and suicidal Lisinopril Swelling High 02/19/2022 Throat swelled Metformin Diarrhea Low 03/15/2021 Omeprazole Anaphylaxis 03/09/2024 Reaction against dexilant Penicillins Rash Medium 11/24/2014 Quetiapine Anaphylaxis,Swelling ,Barbi rtness of Breath High 11/24/2014 Rosuvastatin Other (see Comments) Low 12/28/2019 Statins Unknown 02/27/2024 Sulfa Antibiotics Rash,Swelling,Unknown High 015 Tramadol Nausea,Other (see Comments),Rash High 12/15/2018 feel weird feel weird Other reaction(s): Suicidal Ideation Medications aspirin EC 81 MG Tablet Delayed Response Take 1 Tablet by mouth daily. Active Continuous Blood Gluc Service Architect (Dexcom G7 Service Architect) Device USE DIRECTED along with sensors Active Insulin Pen Needle (B-D ULTRAFINE III SHORT PEN) 31G X 8 MM Misc USE TO INJECT 1 TIME DAILY DIRECTED. 2 Active OneTouch Delica Lancets 33G Misc USE DIRECTED TO check sugar ONCE daily 9 Active ondansetron (Zofran) 4 MG Tablet Take 1 Tablet by mouth every 8 hours as needed for Nausea - 1st line. 15 Tablet 4 Active hydrOXYzine (VISTARIL) 25 MG Capsule Take 1 Capsule by mouth 3 times daily as needed for Anxiety. 90 Capsule 4 Active ergocalciferol (VITAMIN D) 81672 UNIT Capsule Take 1 Capsule by mouth once a week. 5 Capsule 1 4 Active Continuous Glucose Sensor (Dexcom G7 Sensor) Misc CHANGE sensor EVERY 10 DAYS 3 Each 2 4 Active ondansetron (ZOFRAN) 4 MG TabletIndication s:Nausea TAKE ONE TABLET BY MOUTH EVERY 8 HOURS NEEDED FOR NAUSEA 60 Tablet 2 4 Active sucralfate (CARAFATE) 1 GM Tablet TAKE ONE TABLET BY MOUTH EVERY 6 HOURS 120 Tablet 1 4 Active senna-docusate (SENOKOT S) 8.6-50 MG Tablet Take 1 Tablet by mouth. 4 Active famotidine (PEPCID) 20 MG Tablet Take 20 mg by mouth 2 times daily. 4 Active Evolocumab (Repatha SureClick) 140 MG/ML Solution Auto-injector 140 mg by Subcutaneous route. 4 Active amLODIPine (NORVASC) 5 MG TabletIndication s:Primary hypertension Take 1 Tablet by mouth every morning. 90 Tablet 3 5 Active HYDROcodone-acet aminophen (NORCO) 7.5-325 MG TabletIndication s:Abdominal wound dehiscence, sequela,Chronic midline low back pain with bilateral sciatica Take 1 Tablet by mouth 6 times daily. 180 Tablet 5 Active Tirzepatide (Mounjaro) 5 MG/0.5ML Solution Auto-injectorInd ications:Control led type 2 diabetes mellitus with diabetic polyneuropathy, without long-term current use of insulin (HCC) 0.5 mL by Subcutaneous route once a week. 6 mL 1 5 Active divalproex (DEPAKOTE ER) 500 MG TABLET SR 24 HR Take 1 Tablet by mouth 2 times daily. 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 Chronic bilateral low back pain 08/19/2020 Overview (09/20/2024): Last Assessment & Plan: Seeing pain management, but needing new referral to provider closer to home. Will refer. I will manage her pain meds in the interim. History of fundoplication 02/28/2020 Overview (09/20/2024): Added automatically from request for surgery [id number] Added automatically from request for surgery [id number] S/P right knee arthroscopy 02/28/2020 Overview (09/20/2024): Added automatically from request for surgery [id number] Chronic pain of both shoulders 12/28/2019 Overview (09/20/2024): Last Assessment & Plan: [place] [facility] Seeing ortho Doing PT Last Assessment & Plan: New and worsening Order xrays Order labs to r/o connective tissue d/o Take NSAID Chronic bilateral thoracic back pain 12/13/2019 Chronic fatigue 12/13/2019 Overview (09/20/2024): Last Assessment & Plan: Labs normal Possibly secondary to her PRAKASH so will get reevaluated PRAKASH (obstructive sleep apnea) 12/13/2019 Overview (09/20/2024): Last Assessment & Plan: Uncontrolled possible Order referral to sleep center Last Assessment & Plan: Uncontrolled possible Order referral to sleep center Atherosclerosis 10/25/2019 Epileptic seizure 10/16/2019 Epilepsy 10/15/2019 Overview (09/20/2024): Last Assessment & Plan: Stable Anxiety 09/16/2019 Overview (09/20/2024): Last Assessment & Plan: Try Buspar Meds failed prior: Lexapro, Celexa, Zoloft, diazepam Last Assessment & Plan: Try Buspar Meds failed prior: Lexapro, Celexa, Zoloft, diazepam PR (myocardial infarction) 09/16/2019 Overview (09/20/2024): TIMES 2 CHRISTIANNE (generalized anxiety disorder) 09/16/2019 Vitamin D deficiency 09/16/2019 Overview (09/20/2024): Last Assessment & Plan: Repeat levels Last Assessment & Plan: Stable Naturally controlled Fracture of phalanx of finger 09/12/2019 Diabetes mellitus 06/15/2019 Type 2 diabetes mellitus wit hout complication, without long-term current use of insulin 06/15/2019 Overview (09/20/2024): Last Assessment & Plan: Stable, no changes. Continue current regimen with metformin. Will monitor glucose at home more closely. New meter/supplies sent to pharmacy. Will get report from eye exam. Taking Aspirin. Not on statin - intolerant. Seeing cardiology. 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 Claudication 09/15/2018 Seizure 09/13/2018 Dyslipidemia 06/09/2018 Overview (09/20/2024): Last Assessment & Plan: Uncontrolled Add fish oil Cont zetia Essential hypertension 06/09/2018 Overview (09/20/2024): Last Assessment & Plan: Stable without meds Tobacco abuse counseling 06/09/2018 Encounters Date Type Department Care Team Description 09/29/2024 MyChart RX Renewal [facility] [place] [address] Milly Cordoba MD Medication Renewal Declined 09/20/2024 3:20 PM [facility] [place] [address] Other fatigue Discharge Disposition: Discharged to home or Selfcare 09/20/2024 1:15 PM [employer] [facility] Office Visit [facility] [place] [address] Latisha Ewing, INVESTMENT ANALYST, SPECIAL POLICE Chronic neck and back pain (Primary Dx); Chronic midline low back pain without sciatica; Other fatigue Discharge Disposition: Discharged to home or Selfcare 09/20/2024 Results Follow-Up [facility] [place] [address] Latisha Ewing APRN, SPECIAL POLICE 09/20/2024 Travel 09/03/2024 2:00 PM [facility] [employer] [address] [place] [address] Milly Cordoba MD Abdominal wound dehiscence, sequela (Primary Dx); Chronic midline low back pain with bilateral sciatica; Primary hypertension; Controlled type 2 diabetes mellitus with diabetic polyneuropathy, without long-term current use of insulin (HCC) Discharge Disposition: Discharged to home or Selfcare from Last 3 Months Immunizations Immunization Administration Dates Next Due Influenza Vaccine, Quadrivalent, PF 07/02/2023,1 ,06/06/2018 Influenza Vaccine,unspecifie d Formulation 06/01/2022,07/30/2021,06/01/2020,06/30 Influenza, Injectable, Quadrivalent 06/18/2019 Influenza,Split Virus,Trivalent,Injectable,PF 05/24/2024 Pneumococcal Vaccine Adult - 23 Valent 9 Pneumococcal conjugate PCV20 , polysaccharide [id number] conjugate, adjuvant, PF 05/24/2024 Tuberculin Skin Test; Purifi ed Protein Derivative Solutiol 12/10/2019 Family History Medical History Relation Name Comments Cancer Father Oral Diabetes Father Hypertension Father Cancer Maternal Grandfather Cancer Maternal Grandmother Anemia Mother Other-comment Mother Kidney disease Relation Name Status Comments Father Alive Maternal Grandfather Maternal Grandmother Mother Alive Social History Tobacco Use Types Packs/Day Years Used Date Smoking Tobacco: Former Cigarettes Q uit: 12/12/1982 Passive Smoke Exposure: Never Smokeless Tobacco: Never Tobacco Cessation:Counseling Given: Not Answered Alcohol Use Standard Drinks/Week Comments Not Currently 0 (1 standard drink = 0.6 oz pur e alcohol) [facility] Utilities Answer Date Recorded In the past 12 months has e [employer], gas, oil, or water [employer] threatened to shut off services in your home? Patient declined 09/20/2024 Social Connection and Isolation Panel [NHANES] A nswer Date Recorded In a typical week, how many times do you talk on the phone with family, friends, or neighbors? Patient declined 09/20/2024 How often do you get togethe r with friends or relatives? Patient declined 09/20/2024 How often do you attend hindu or uatsdin serv ices? Patient declined 09/20/2024 Do you belong to any clubs o r organizations such as hindu groups, unions, fraternal or athletic groups, or school groups? Patient declined 09/20/2024 How often do you attend meet ings of the clubs or organizations you belong to? Patient declined 09/20/2024 Are you , , di vorced, , never , or living with a partner? 09/20/2024 AUDIT-C Answer Date Recorded Q1: How often do you have a drink containing alcohol? Never 09/20/2024 Q2: How many drinks containi ng alcohol do you have on a typical day when you are drinking? Patient does not drink Q3: How often do you have si x or more drinks on one occasion? Never 09/20/2024 Overall Financial Resource Strain (CARDIA) Answe r Date Recorded How hard is it for you to pa y for the very basics like food, housing, medical care, and heating? Patient declined 09/20/2024 [facility] - Occupational Stress Questionnaire Answer Date Recorded Do you feel stress - tense, restless, nervous, or anxious, or unable to sleep at night because your mind is troubled all the time - these days? Patient declined 09/20/2024 Exercise Vital Sign Answer Date Recorde d On average, how many days pe r week do you engage in moderate to strenuous exercise (like a brisk walk)? 0 days 09/20/2024 On average, how many minutes do you engage in exercise at this level? 0 min 09/20/2024 Hunger Vital Sign Answer Date Recorded Within the past 12 months, y ou worried that your food would run out before you got the money to buy more. Patient declined Within the past 12 months, t he food you bought just didn't last and you didn't have money to get more. Patient declined PRAPARE - Transportation Answer Date Re corded In the past 12 months, has l ack of transportation kept you from medical appointments or from getting medications? Patient declined 09/20/2024 In the past 12 months, has l ack of transportation kept you from meetings, work, or from getting things needed for daily living? Patient declined 09/20/2024 Housing Stability Vital Sign Answer Js e Recorded In the last 12 months, was t here a time when you were not able to pay the mortgage or rent on time? No 01/28/2024 In the last 12 months, how many places have you lived? 1 01/28/2024 In the last 12 months, was t here a time when you did not have a steady place to sleep or slept in a alf (including now)? No 01/28/2024 Housing Stability Vital Sign Answer Js e Recorded In the last 12 months, was t here a time when you were not able to pay the mortgage or rent on time? Patient declined 09/20/19 25 In the past 12 months, how m any times have you moved where you were living? 0 09/20/2024 At any time in the past 12 m [facility], were you homeless or living in a alf (including now)? Patient declined 09/20/2024 Comments No Sex and Gender Information Value Date Recorded Sex Assigned at Not on file Legal Sex Female 1:38 PM CDT Gender Identity Not on file Sexual Orientation Not on file Last Filed Vital Signs Vital Sign Reading Time Taken Comments Blood Pressure 135/80 09/20/2024 1:13 PM [facility] Pulse 81 09/20/2024 1:13 PM [employer] Temperature 36.9 C (98.4 F) 09/20/2024 1:13 PM [facility] Respiratory Rate 18 09/20/2024 1:13 PM [facility] [employer] Oxygen Saturation 98% 09/20/2024 1:13 PM [employer] [employer] Inhaled Oxygen Concentration - - Weight 88.9 kg (196 lb) 09/20/2024 1:13 PM [facility] Height 166.4 cm (5' 5.5 ) 09/20/2024 1:13 PM [facility] Body Mass Index 32.12 09/20/2024 1:13 PM [facility] Plan of Treatment Health Maintenance Due Date Last Done Comments Diabetes: Eye Exam 1972 Diabetes: Foot Exam 1972 Hepatitis C Virus (HCV) Screening 1972 TdaP Immunization 1972 Hepatitis B Immunization (1 of 3 - 19+ 3-dose series) 1991 Cologuard 2022 Immunochemical Fecal Occult Blood 2022 Zoster Immunization (1 of 2) 2022 SARS-COV-2 Immunization ( season) 2024 09/05/2021, 03/05/2021, 02/05/2021 Mammogram 05/26/2024 05/26/2023, 05/03, 02/21/2020, Additional history exists Diabetes: Hemoglobin A1c 12/08/2024 024, 02/05/2024, 02/05/2024, Additional history exists Diabetes: Nephropathy Screening 09/20/2025 09/20/2024, 02/05/2024 Colonoscopy 01/05/2032 01/04/2022, 10/01/2018 Colorectal Cancer Screening 01/05/2032 Respiratory Syncytial Virus (RSV) Immunization (Adult) (1 - 1-dose 75+ series) 2047 01/04/2022, 10/01/2018 Influenza Immunization Completed , 07/02/2023, 06/01/2022, Additional history exists Pneumococcal Immunization (50+ years) Completed 05/24/2024, 06/18/2019 Pneumococcal Immunization Combined Discontinued 05/24/2024, 06/18/2019 Meningococcal Immunization (ACWY) Aged Out No longer eligible based on patient's age to complete this topic Rotavirus Immunization Aged Out No lo nger eligible based on patient's age to complete this topic Procedures Procedure Name Priority Date/Time Associated Diagnosis Comments NEUROSURGY CONSULT 10/12/2024 12 :00 AM [facility] CBC WITH AUTO DIFFERENTIAL Routine 09/20/2024 2:07 PM [employer] Other fatigue CMP (COMPREHENSIVE METABOLIC PANEL) Routine 09/20/2024 2:07 PM [employer] Other fatigue COMPLETE BLOOD COUNT (CBC) WITH DIFF Routine 09/20/2024 2:07 PM [employer] Other fatigue HEMOGLOBIN A1C W/ ESTIMATED GLUCOSE Routine 02/05/2024 1:20 PM CDT Leg cramps from Last 3 Months or Most Recently Relevant to Health Maintenance Results * NEUROSURGY CONSULT (10/12/2024 12:00 AM [facility] [employer] [facility]) 10/12/2024 us Provider Scan GENERIC SCAN ORDERS CONSULT Nicole euceda Result SCAN * CBC WITH AUTO DIFFERENTIAL (09/20/2024 2:07 PM [facility] [employer]) WBC 5.21 4.00 - 12.00 10(3)/mcL 09/20/2024 3:10 PM [facility] RBC 4.47 3.80 - 5.30 10(6)/mcL 09/20/2024 3:10 PM [facility] HEMOGLOBIN (HGB) 12.9 12.0 - 15.8 g/dL 09/20/2024 3:10 PM [facility] HEMATOCRIT (HCT) 38.9 36.0 - 47.0 % 09/20/2024 3:10 PM [facility] MCV 87.0 82.0 - 96.0 fL 09/20/2024 3:10 PM [facility] MCH 28.9 26.0 - 34.0 pg 09/20/2024 3:10 PM [facility] MCHC 33.2 31.0 - 36.0 g/dL 09/20/2024 3:10 PM [facility] PLATELET COUNT 306 140 - 440 10(3)/mcL 09/20/2024 3:10 PM [facility] RDW 15.4 11.8 - 15.5 % 09/20/2024 3:10 PM [facility] MPV 10.7 9.7 - 12.4 fL 09/20/2024 3:10 PM [facility] NEUTROPHILS 49.8 47.0 - 73.0 % 09/20/2024 3:10 PM [facility] LYMPHOCYTES 38.0 18.0 - 42.0 % 09/20/2024 3:10 PM [facility] MONOCYTES 8.3 4.0 - 12.0 % 09/20/2024 3:10 PM [facility] EOSINOPHILS 3.5 0.0 - 5.0 % 09/20/2024 3:10 PM [facility] BASOPHILS 0.4 0.0 - 1.0 % 09/20/2024 3:10 PM [facility] ABSOLUTE NEUTROPHILS 2.60 1.60 - 7.70 10(3)/mcL 09/20/2024 3:10 PM [facility] ABSOLUTE LYMPHOCYTES 1.98 1.30 - 3.20 10(3)/[facility] 09/20/2024 3:10 PM [employer] ABSOLUTE MONOCYTES 0.43 0.20 - 1.00 10(3)/[facility] 09/20/2024 3:10 PM [facility] [employer] [facility] ABSOLUTE EOSINOPHIL 0.18 0.00 - 0.40 10(3)/[facility] 09/20/2024 3:10 PM [facility] [employer] ABSOLUTE BASOPHILS 0.02 0.00 - 0.10 10(3)/[facility] 09/20/2024 3:10 PM [employer] NRBC PER 100 WBC 0 09/20/19 3:10 PM [facility] Blood Venipuncture / Unknown 09/20/2024 2:07 PM [facility] 09/20/2024 2:07 PM [facility] [employer] us Latisha Ewing INVESTMENT ANALYST, SPECIAL POLICE HEMATOLOGY ORDERABLES Nicole l Result [facility] [place] [address] * (ABNORMAL) CMP (COMPREHENSIVE METABOLIC PANEL) (09/20/2024 2:07 PM [facility]) SODIUM 141 136 - 145 mmol/L 09/20/2024 3:34 PM [facility] [employer] POTASSIUM 4.2 3.5 - 5.1 mmol/L 09/20/2024 3:34 PM [facility] CHLORIDE 104 98 - 107 mmol/L 09/20/2024 3:34 PM [facility] CO2, VENOUS 31(H) 22 - 30 mmol/L 09/20/2024 3:34 PM [facility] [employer] ANION GAP 10.2 <18.0 mmol/L 09/20/2024 3:34 PM [facility] GLUCOSE 75 70 - 99 mg/dL 09/20/2024 3:34 PM [facility] BUN 8(L) 10 - 20 mg/dL 09/20/2024 3:34 PM [facility] CREATININE, BLOOD 0.74 0.60 - 1.00 mg/dL 09/20/2024 3:34 PM [facility] BUN/CREATININE RATIO 11(L) 12 - 20 ratio 09/20/2024 3:34 PM [facility] TOTAL PROTEIN 7.5 6.0 - 8.0 g/dL 09/20/2024 3:34 PM [facility] ALBUMIN 4.1 3.5 - 5.0 g/dL 09/20/2024 3:34 PM [facility] A/G RATIO 1.2 1.0 - 2.2 09/20/2024 3:34 PM [facility] CALCIUM 9.4 8.7 - 10.5 mg/dL 09/20/2024 3:34 PM [facility] T BILI 0.2 0.2 - 1.2 mg/dL 09/20/2024 3:34 PM [facility] SGOT (AST) 26 6 - 42 U/L 09/20/2024 3:34 PM [facility] SGPT (ALT) 27 6 - 55 U/L 09/20/2024 3:34 PM [facility] ALKALINE PHOSPHATASE 58 40 - 150 U/L 09/20/2024 3:34 PM [facility] IS THE PATIENT REQUIRED TO BE FASTING? No 09/20/2024 3:34 PM [facility] GFR, ESTIMATED >60 >=60 09/20/2024 3:34 PM [facility] Comment: Creatinine Clearance is the preferred criteria for selecting drug dose adjustments in renally impaired patients. The GFR is provided as additional pertinent clinical information. GFR is reported in mL/min/1.73 sq m. Calculation based on the Chronic Kidney Disease Epidemiology Collaboration (CKD- EPI) equation refit without adjustment for race. GFR, EST. >60 >=60 025 3:34 PM [employer] GFR, EST. NONAFRICAN >60 >=60 09/20/2024 3:34 PM [facility] Blood Venipuncture / Unknown 09/20/2024 2:07 PM [facility] 09/20/2024 2:07 PM [facility] Latisha Ewing APRN, CNP CHEMISTRY ORDERABLES Final Result Performing Organization Address City/[facility]/ZIP Co de Phone Number [facility] [place] [address] * HEMOGLOBIN A1C W/ ESTIMATED GLUCOSE (02/05/2024 1:20 PM CDT) HGB-A1C 5.6 4.0 - 6.0 % 02/05/2024 2:37 PM CDT [facility] Est Average Glucose 114.0 mg/dL 02/05/2024 2:37 PM CDT [facility] Blood Venipuncture / Unknown 02/05/2024 1:20 PM CDT 02/05/2024 1:20 PM CDT Narrative [facility] - 02/05/2024 2:37 PM CDT HEMOGLOBIN A1C: DIABETIC PATIENTS: WELL-CONTROLLED: 6.2 - 7.0 INTERMEDIATE WELL-CONTROLLED: 7.0 - 9.0 POORLY-CONTROLLED: >9.0 us Milly Cordoba MD CHEMISTRY ORDERABLES Final Result Performing Organization Address City/[facility]/ZIP Co de Phone Number [facility] [place] [address] from Last 3 Months or Most Recently Relevant to Health Maintenance [place] [address] [place] [address] [place]ICA[place] Care Teams Hospice/Home Health Aide Relationship Specialty Start Date End Date Milly Cordoba MD [address] [place] [address] PCP - General Family Medicine 12/09/23 Andrzej Kelsey MD [address] [id number] Consulting Physician General Surgery 03/25/24
--- OUTSIDE RECORDS SUMMARY | 2024-12-02 13:49 | XMS_ITS | Encounter Summary ---
Author Organization [facility] Healthcare Address [address] [place] [address] Care Team Providers Care Optical Goods Drill Operator Name Role Phone Lele Millan DO Unavailable [phone] Patricia Nichols Primary Care Provider + Encounter Details Date Type Department Care Team (Late st Contact Info) Description 11/09/2024 Results Follow-Up [facility] Family Medicine [address] [phone] Patricia Nichols PA [address] [place] [address] Social History Tobacco Use Types Packs/Day Years Used Date Smoking Tobacco: Every Day Cigarettes 0.5 40 Last attempted to quit: 12/12/1982 Smokeless Tobacco: Never Comments:going to quit for s urgery she stated 02/19/22 per the surgeon request last smoked yesterday Alcohol Use Standard Drinks/Week Comments Not Currently 0 (1 standard drink = 0.6 oz pur e alcohol) AUDIT-C Answer Date Recorded Q1: How often do you have a drink containing alcohol? Never 06/11/2024 Q2: How many drinks containi ng alcohol do you have on a typical day when you are drinking? Patient does not drink Q3: How often do you have si x or more drinks on one occasion? Never 06/11/2024 PHQ-2 Answer Date Recorded PHQ-2 Total Score (If total score is 3 or more points, staff should administer the PHQ-9) 0 11/11/2024 PHQ-9 Answer Date Recorded PHQ-9 Total Score 8 07/14/2024 Personal Safety Answer Date Recorded Have you ever been in or are you currently in a harmful physical or emotional relationship or is someone making you feel afraid or unsafe? 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
--- OUTSIDE RECORDS SUMMARY | 2024-12-02 13:49 | XMS_ITS ---
Author Organization Unknown Address [address], [place] [id number] Phone Care Team Providers Care Blue Leather Setter Name Role Phone KALEB FAGAN Attending Unavailable Immunization Immunization Date Status Additional Notes Code Code System Pneumococcal conjugate PCV20 , polysaccharide [id number] conjugate, adjuvant, PF 05/24/2024 Completed 216 CVX COVID-19, mRNA, LNP-S, PF, 1 00 mcg/0.5mL dose or 50 mcg/0.25mL dose 09/05/2021 Completed 207 CVX COVID-19, mRNA, LNP-S, PF, 1 00 mcg/0.5mL dose or 50 mcg/0.25mL dose 03/05/2021 Completed 207 CVX COVID-19, mRNA, LNP-S, PF, 1 00 mcg/0.5mL dose or 50 mcg/0.25mL dose 02/05/2021 Completed 207 CVX Influenza, split virus, quadrivalent, preservative 06/18/2019 Completed 158 C VX Influenza, split virus, quadrivalent, PF 07/02/2023 Completed 150 CVX Influenza, split virus, quadrivalent, PF 06/15/2021 Completed 150 CVX Influenza, split virus, quadrivalent, PF 06/06/2018 Completed 150 CVX Influenza, split virus, trivalent, PF 05/24/2024 Completed 140 CVX influenza, unspecified formulation 06/30/2019 Completed 88 CVX influenza, unspecified formulation 06/01/2022 Completed 88 CVX influenza, unspecified formulation 07/30/2021 Completed 88 CVX influenza, unspecified formulation 06/01/2020 Completed 88 CVX pneumococcal polysaccharide PPV23 06/18/2019 Completed 33 CVX Results MRI ANKLE LEFT W/O CONTRAST - Completed: 02/12/2022 09:58 LOINC: EXAMINATION: MRI left ankle without contrast DATE/TIME: 02/12/2022 9:08 AM REASON FOR EXAM: Left ankle pain, swelling and instability. Previous injury in October.COMPARISON: NoneTECHNIQUE: Multiplanar multisequence MRI of the left ankle without contrastFINDINGS: Minimal bone marrow edema of the calcaneus posterior process and lateral aspects is nonspecific. There is no discrete fracture line is demonstrated. Incidental benign bone island of the calcaneus anterior process. Additional tiny sclerotic focus of the talus. No suspicious bone lesions. Ankle mortise alignment is intact. There are mild degenerative changes in the ankle and hindfoot with scattered tiny marginal spurs. Talar dome and tibial plafond and are intact. No joint effusion or radiopaque loose body. Minimal edema of the sinus Tarsi, otherwise unremarkable.Medially, there is a small effusion of the posterior tibial tendon sheath. Medial ankle tendons are otherwise unremarkable. The deltoid ligament complex is intact. Tiny enthesophytes of the medial malleolus.Laterally, the peroneal tendons are intact. No tendon sheath effusion. There is a normal variant accessory peroneus quartus inserting upon the lateral margin of the calcaneus. The talofibular, tibiofibular and calcaneofibular ligaments are intact.The anterior ankle tendons are unremarkable. The Achilles tendon is intact. Minimal edema of the peritenon. Small enthesophytes of the posterior calcaneus at the Achilles insertion. Minimal fluid in the retrocalcaneal bursa, within physiologic limits. Plantar aponeurosis is unremarkable.=====IMPRESSION:===== 1. Minimal marrow edema of the calcaneus posterior process is nonspecific, possible low-grade stress injury. No discrete fracture line.2. Minimal edema along the sinus Tarsi ligaments could represent very low-grade sprain. The medial and lateral ankle ligaments are otherwise intact.3. Effusion of the posterior tibial tendon sheath compatible with mild tenosynovitis.4. Mild degenerative changes. Created and Electronically Signed by:Jcarlos Moore MD02/12/2022 12:13 Social History Type Status Start Date End Date Code Code Syst em Smoking History Never smoker (Never Smoked) [id number] SNOMED CT Sex Female Hospital Discharge Instructions Should you have any questions prior to discharge, please contact a member of your healthcare team. If you have left the hospital and have any questions, please contact your primary care physician. Reason For Referral No Data Found Plan of Treatment No Data Found Encounters Encounter Diagnosis Start Date Code Code Sys tem Arthralgia of the ankle and/or foot 02/12/2022 [id number] SNElco-CT Personal Care Team Section Performer Name Performer Role Active Date Inactive Da te Imaging Narrative Notes [facility] 02/12/2022 12:15 1 [facility] [address] [place] [address] RADIOLOGY REPORT NAME: NUMBER: SEX: AGE: ADMIT: SERVICE: Type: LUKE ROBERTS [id number] F [id number] 02/12/22 AX 2 DATE OF : 1970 M/R#: [id number] HOME PHONE: [phone] RM: CELL PHONE: [phone] ACCESSION NUMBER: [id number] MRI ANKLE LEFT W/O CONTRAST COMPLETE: 02/12/2022 09:58 AJF ATTENDING PHYSICIAN: GRACIA MANUEL SECOND PHYSICIAN: DICTATING PHYSICIAN: Jcarlos Moore MD PRIMARY CARE PHYSICIAN: Unsigned transcriptions represent a preliminary report and do not represent a medical or legal document EXAMINATION: MRI left ankle without contrast EXAM DATE/TIME: 02/12/2022 9:08 AM REASON FOR EXAM: Left ankle pain, swelling and instability. Previous injury in October. COMPARISON: None TECHNIQUE: Multiplanar multisequence MRI of the left ankle without contrast FINDINGS: Minimal bone marrow edema of the calcaneus posterior process and lateral aspects is nonspecific. There is no discrete fracture line is demonstrated. Incidental benign bone island of the calcaneus anterior process. Additional tiny sclerotic focus of the talus. No suspicious bone lesions. Ankle mortise alignment is intact. There are mild degenerative changes in the ankle and hindfoot with scattered tiny marginal spurs. Talar dome and tibial plafond and are intact. No joint effusion or radiopaque loose body. Minimal edema of the sinus Tarsi, otherwise unremarkable. Medially, there is a small effusion of the posterior tibial tendon sheath. Medial ankle tendons are otherwise unremarkable. The deltoid ligament complex is intact. Tiny enthesophytes of the medial malleolus. Laterally, the peroneal tendons are intact. No tendon sheath effusion. There is a normal variant accessory peroneus quartus inserting upon the lateral margin of the calcaneus. The talofibular, tibiofibular and calcaneofibular ligaments are intact. The anterior ankle tendons are unremarkable. The Achilles tendon is intact. Minimal edema of the 2 [facility] [address] [place] [address] RADIOLOGY REPORT NAME: NUMBER: SEX: AGE: ADMIT: SERVICE: Type: LUKE ROBERTS [id number] F [id number] 02/12/22 AX 2 DATE OF : 1970 M/R#: [id number] HOME PHONE: [phone] RM: CELL PHONE: [phone] ACCESSION NUMBER: [id number] MRI ANKLE LEFT W/O CONTRAST COMPLETE: 02/12/2022 09:58 AJF ATTENDING PHYSICIAN: GRACIA MANUEL SECOND PHYSICIAN: DICTATING PHYSICIAN: Jcarlos Moore MD PRIMARY CARE PHYSICIAN: Unsigned transcriptions represent a preliminary report and do not represent a medical or legal document peritenon. Small enthesophytes of the posterior calcaneus at the Achilles insertion. Minimal fluid in the retrocalcaneal bursa, within physiologic limits. Plantar aponeurosis is unremarkable. ===== IMPRESSION:===== 1. Minimal marrow edema of the calcaneus posterior process is nonspecific, possible low-grade stress injury. No discrete fracture line. 2. Minimal edema along the sinus Tarsi ligaments could represent very low-grade sprain. The medial and lateral ankle ligaments are otherwise intact. 3. Effusion of the posterior tibial tendon sheath compatible with mild tenosynovitis. 4. Mild degenerative changes. Created and Electronically Signed by: Jcarlos Moore MD 02/12/2022 12:13
--- OUTSIDE RECORDS SUMMARY | 2024-12-02 13:49 | XMS_ITS | Clinical Summary ---
Author Organization [facility] Address [address] [place] [address] Phone Care Team Providers Care Silver Holloware Assembler Name Role Phone Milly Cordoba MD Primary Care Provider Allergies Active Allergy Reactions Criticality Noted Date Comments Bupropion Hcl Shortness of Breath/Wheezing High 01/14/2024 Fluoxetine Other (See Comments) 01/14/2024 SUICIDAL THOUGHTS Nsaids (Non-Steroidal Anti-Inflammatory Drug) Other (See Comments) 01/14/2024 GI BLEED Quetiapine Anaphylaxis High 01/14/2024 Sertraline Other (See Comments) 01/14/2024 INCREASED DEPRESSION Sulfa (Sulfonamide Antibiotics) Rash Low 01/14/2024 Tramadol Shortness of Breath/Wheezing High 01/14/2024 Medications No known medications Encounters Date Type Department Care Team Description 11/30/2024 External Device Data STL ABSTRACTION Provider, Abstract 11/17/2024 External Device Data STL ABSTRACTION Provider, Abstract 11/09/2024 External Device Data STL ABSTRACTION Provider, Abstract 11/09/2024 External Device Data STL ABSTRACTION Provider, Abstract 11/08/2024 External Device Data STL ABSTRACTION Provider, Abstract 11/06/2024 External Device Data STL ABSTRACTION Provider, Abstract 11/05/2024 External Device Data STL ABSTRACTION Provider, Abstract 11/02/2024 External Device Data STL ABSTRACTION Provider, Abstract 10/05/2024 External Device Data STL ABSTRACTION Provider, Abstract 09/23/2024 External Device Data STL ABSTRACTION Provider, Abstract 09/22/2024 External Device Data STL ABSTRACTION Provider, Abstract 09/21/2024 External Device Data STL ABSTRACTION Provider, Abstract 09/15/2024 External Device Data STL ABSTRACTION Provider, Abstract from Last 3 Months Social History Tobacco Use Types Packs/Day Years Used Date Smoking Tobacco: Never Assessed Feeling Safe Answer Date Recorded Are you in a relationship wi th someone who hurts you emotionally and/or physically? No 01/14/2024 Comments No Sex and Gender Information Value Date Recorded Sex Assigned at Not on file Legal Sex Female 3:25 PM CDT Gender Identity Not on file Sexual Orientation Not on file Last Filed Vital Signs Vital Sign Reading Time Taken Comments Blood Pressure 139/71 01/14/2024 9:37 PM CDT Pulse 66 01/14/2024 9:37 PM CDT Temperature 37.2 C (98.9 F) 01/14/2024 8:37 PM CDT Respiratory Rate 19 01/14/2024 9:37 PM CDT Oxygen Saturation 100% 01/14/2024 9:37 PM CDT Inhaled Oxygen Concentration - - Weight 85.7 kg (189 lb) 01/14/2024 8:37 PM CDT Height 165.1 cm (5' 5 ) 01/14/2024 8:37 PM CDT Body Mass Index 31.45 01/14/2024 8:37 PM CDT Plan of Treatment Health Maintenance Due Date Last Done Comments DIABETES ANNUAL RETINAL EXAM 1990 DIABETES MICROALBUMIN ANNUAL SCREEN 1990 LDL CHOLESTEROL ANNUAL 1990 DTAP/TDAP/TD VACCINES (1 - Tdap) 1991 HEPATITIS B VACCINES (1 of 3 - 19+ 3-dose series) 1991 PAP SMEAR 2002 FIT-DNA Q 3 years 2017 FIT/FOBT Q 1 year 2017 Flex Sig/CT Colonography Q 5 years 2017 DIABETES ANNUAL FOOT EXAM 09/26/2021 09/26/2020 ZOSTER VACCINE (1 of 2) 2022 INFLUENZA VACCINE (#1) 2024 , 06/15/2021, 06/18/2019, Additional history exists DIABETES HBA1C Q 6 MONTHS 04/28/2024 10/29/2023, BREAST CANCER SCREENING 05/26/2024 05/26/20 23, 05/26/2023, 08/18/2020, Additional history exists COLORECTAL SCREENING 01/05/2032 01/04/2022, 10/02/2018, 10/01/2018 Colorectal Cancer Screening 01/05/2032 Insurance Care Teams Silver [employer]are Assembler Relationship Specialty Start Date End Date Milly Cordoba MD PCP - General Family Practice 01/14/24
--- OUTSIDE RECORDS SUMMARY | 2024-12-02 13:49 | XMS_ITS | Data Portability ---
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 Plan of Treatment Reminders Order Date Submit Date Provider Last Modified By Organization Details Last Modified Time Details Appointments None recorded. Lab lipid panel, serum 2023 024 [email or web address] [facility], [address], [place], [address], 4 13:54:34 hepatic function panel, serum 2023 024 [email or web address] [facility], [address], [place], [address], 4 13:54:34 rapid SARS CoV 2 Ag, QL IA, respiratory specimen 2022 023 [email or web address] [facility], [address] [place] [address], [address], 3 12:09:05 Referral None recorded. Procedures None recorded. Surgeries None recorded. Imaging electrocard iogram 2023 024 [email or web address] r1 [facility], [address] [place] [address], [address], 4 16:21:37 ankle brachial index 2023 024 [email or web address] 3 Fernando Basil PA-C, [address], [place], [address], 4 16:21:37 US, echocardiog chetan, transthorac ic, complete, w/ color flow 2023 024 [email or web address] 3 Fernando Basil MALAVE-C, [address], [address], [place], [address], 4 16:21:37 NM, myocardial perfusion scan 2023 024 [email or web address] 3 Fernando Basil MALAVE-C, [address], [address], [place], [address], 4 16:21:36 holter monitor 2023 024 [facility] (Central Scheduling), [address] [place], [address], 4 16:01:56 XR, shoulder, 2 or more view - heard a pop while moving carts now has left shoulder pain; [email or web address] [place] [address] (Central Scheduling), [address] [place], [address], 3 14:10:36 Medication Orders Ciprodex 0.3 %-0.1 % ear drops,suspe nsion 2023 024 [facility], [address] [place] [address], [address], 4 17:02:45 doxycycline monohydrate 100 mg capsule [address], [address] [place] [address], [address], 4 16:02:35 pravastatin 40 mg tablet [address], [address] [place] [address], [address], 4 16:03:05 losartan 25 mg tablet 2023 024 constantino mathis [facility], [address] [place] [address], [address], 4 16:02:43 albuterol sulfate HFA 90 mcg/actuati on aerosol inhaler [address], [address] [place] [address], [address], 4 14:16:55 benzonatate 200 mg capsule [address], [address] [place] [address], [address], 4 14:14:22 baclofen 10 mg tablet 2022 023 sara calzada [facility], [address] [place] [address], [address], 3 11:43:19 Patient TargetsNo targets recorded. Patient InstructionsNo instructions recorded. Reason for Referral None Reported. Results Created Date Observation Date Name Description Value Unit Range Abnormal Flag Note LastModifiedBy Organization Detail LastModifiedTime 08/01/2008/01/2023 rapid SARS CoV 2 Ag, QL IA, respi rator y speci men id now rapid sars cov 2 Ag positv e negati ve normal Not Available [facility], [address], 08/01/2023 12:04:05 06/06/20 23 06/06/2023 XR, charles farfan, 2 or more view [address] [id number] AMINA Cuevas REPORT Name: TAMMY ROBERTS Room #: : 1970 Accoun t #: [id number] Bed #: Age: 52 Years Patien t Type: Outpat ient Order Date/T faith: 2022 06:27: 28 PM Sex: F Access ion#: Exam Descri ption: Exam Reason : [id number] XR SHOULD ER 2V+ Juab a pop while moving Dictat ed By: Bettie Garcia Physic lizzie: JANICE GARCIA Attend ing Physic lizzie: JANICE GARCIA Primar y Care Physic lizzie: PARAMJIT OLEARY XR SHOULD ER 2 OR MORE VIEWS INDICA TION: 52 years Female ; Juab a pop while moving carts and now has should er pain Techni que: 3 views of the left should er. COMPAR ASAD: None. FINDIN GS: Bones: No acute fractu re or sublux ation or signif icant degene rative change s. Soft tissue s: Unrema rkable . Incide ntal findin gs: None. IMPRES DAY: NO ACUTE FRACTU RE OR SUBLUX ATION. Electr onical ly signed by: Bettie Garcia MD 2022 09:31 PM CDT Workst ation: 109-04 [id number] PAGE [address] [facility] [address] [place] [address], [address], 06/09/2023 09:03:20 12/04/19 24 12/01/2023 elect stephanie carpenter am No observ ation record ed. [email or web address] Not Available 12/2023 15:33:38 12/06/19 24 12/06/2023 luz marina carpenter am No observ ation record ed. [email or web address] [facility] [address] [place], [address], 12/06/2023 16:18:04 12/09/19 24 12/08/2023 elect stephanie pauline am No observ ation record ed. BARCODE [facility] [address] [place], [address], 12/09/2023 10:11:28 12/09/19 24 12/05/2023 que r monit or No observ ation record ed. [address] ([facility]) [address] [place], [address], 12/16/2023 14:28:58 Result Notes None recorded. Problems Name Problem SNOMED Code Status Onset Date Resolution Date Notes Provider Name and Address Organization Details Recorded Time Otitis externa of right ear 0910922517328 101 Active 2022 Trupti Moody NP [address] [place], [address] , [facility] 3 19:28:21 Elevated blood-pres sure reading without diagnosis of hypertensi on 381276340 Active 2022 Trupti Moody NP [address] [place], [address] , [facility] 3 19:32:13 Myocardial infarction 34120456 Active Sherlyn york, [facility] 3 09:18:38 Gastroesop hageal reflux disease 220359929 Active Sherlyn york, [facility] 3 09:19:07 Placement of stent in cardiac conduit Active Sherlyn york, [facility] 3 09:19:32 Pain of left shoulder joint 0253783388672 9109 Active 2022 Janice Garcia NP [address] [place], [address] , [facility] 3 18:37:50 Chronic low back pain 341734439 Active 2022 Janice Garcia 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 [address] [place], [address] , [facility] 3 18:39:01 COVID-19 900399747 Active 2022 Janice Garcia 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 [address] [place], [address] , [facility] 3 12:03:56 Angina pectoris 368692631 Active 2023 Fernando MALAVE [address] [place], [address] , [facility] 4 14:27:23 Coronary atheroscle rosis 607927836 Active 2023 Fernando MALAVE [address] [place], [address] , [facility] 4 14:29:05 Hyperchole sterolemia 32710538 Active 2023 Fernando MALAVE [address] [place], [address] , [facility] 4 14:29:51 Essential hypertensi on 71126759 Active 2023 Fernando MALAVE [address] [place], [address] , [facility] 4 14:36:05 Intermitte nt palpitatio ns 075522436 Active 2023 Fernando MALAVE [address] [place], [address] , [facility] 4 14:47:12 Peripheral vascular disease 394933008 Active 2023 Fernando MALAVE [address] [place], [address] , [facility] 4 14:47:38 Acute sinusitis 77315560 Active 2023 Janice Garcia NP [address] [place] [address], [address] , [facility] 4 15:54:53 Spontaneou s rupture of left tympanic membrane co-occurre nt and due to acute suppurativ e otitis media 3359670642269 106 Active 2023 Janice Garcia 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 Procedures Surgical History Date Name Laterality Status Provider Name and Address Organization Details Recorded Time 09/02/19 03 Tonsillectomy completed Not Available [facility] 09/08/2022 22:50:18 placement of stent in cardiac conduit completed Sherlyn [facility] 02/21/2023 09:21:30 hysterectomy completed Sherlyn [facility] 02/21/2023 09:21:42 Xiao fundoplication completed Sherlyn [facility] 02/21/2023 09:21:54 section completed Sherlyn [facility] 02/21/2023 09:22:07 cholecystectomy completed Sherlyn [facility] 02/21/2023 09:22:20 Orthopedic Procedure completed [facility] 02/21/2023 09:22:53 Imaging Results Imaging Date Name Status LastModified by Organization Details LastModified Time 06/06/2023 XR, shoulder, 2 or more view completed de [facility] [address] [place] [address], [address], 06/09/2023 09:03:20 12/01/2023 electrocardiogram completed [email or web address] Inform ation not available 12/05/2023 15:33:38 12/06/2023 electrocardiogram completed [email or web address], [address], 12/06/2023 16:18:04 12/08/2023 electrocardiogram completed BARCODE [facility] [place], [address], 12/09/2023 10:11:28 12/05/2023 holter monitor completed [address] (Central Scheduling) [address] [place], [address], 12/16/2023 14:28:58 Procedure Notes None recorded. Medical Equipment None Reported. Allergies Allergen ID Allergen Name Allergen Category Reaction Reaction Severity Criticality Documentation Date Start Date Code Code System Note Provider Name and Address Organization Details Recorded Time 365172 Zoloft medicatio n other mild Not available 09/08/2022 69436 RxNorm palpi ation s, panic attac ks Not Available [facility] 3 22:50:17 592991 Wellbutri n medicatio n angioedem a Not available Not available 09/08/2022 57430 RxNorm Not Available [facility] 3 22:50:17 [id number] Substance with sulfonami de structure and antibacte rial mechanism of action (substanc e) medicatio n rash Not available Not available 09/08/2022 98208 8003 SNOMED Not Available [facility] 3 22:50:17 589446 Seroquel medicatio n angioedem a Not available Not available 09/08/2022 84702 RxNorm Not Available [facility] 3 22:50:18 659652 Prozac medicatio n Not available Not available Not available 09/08/2022 38966 RxNorm SI thoug hts Not Available [facility] 3 22:50:18 390164 Product containin g penicilli n (product) medicatio n rash Not available Not available 09/08/2022 36892 8001 SNOMED Not Available [facility] 3 22:50:18 510106 tramadol medicatio n Not available Not available Not available 02/21/2023 64883 [facility] 3 09:26:10 177579 Non-stero idal anti-infl ammatory agent (product) medicatio n other Not available Not available 06/06/2023 88732 005 SNOMED Cause s Stoma ch bleed Kerrisapna Ibarra [facility] 3 18:20:54 Medications Name Sig Start Date Stop Date Status Note LastModified by Organization Details LastModified Time cyclobenzap rine 10 mg tablet TAKE ONE TABLET BY MOUTH THREE TIMES DAILY NEEDED FOR muscle SPASMS 12/04 completed Not Available Not Available Not Available methocarbam ol 500 mg tablet TAKE ONE TABLET BY MOUTH TWICE DAILY 12/04 completed Not Available Not Available Not Available metformin 500 mg tablet TAKE ONE TABLET BY MOUTH TWICE DAILY 06/15 completed Not Available Not Available Not Available atorvastati n 80 mg tablet TAKE ONE TABLET BY MOUTH at bedtime 06/15 completed Not Available Not Available Not Available prednisone 10 mg tablet take SIX tablets BY MOUTH EVERY MORNING FOR 2 DAYS, THEN FIVE tablets FOR 2 DAYS, FOUR tablets FOR 2 DAYS, THREE tablets FOR 2 DAYS, TWO tab 06/15 completed Not Available Not Available Not Available doxycycline hyclate 100 mg capsule TAKE 1 CAPSULE BY MOUTH TWICE DAILY FOR 10 DAYS 01/01 completed Not Available Not Available Not Available nicotine 14 mg/[address] patch place ONE PATCH ON SKIN DAILY. apply new PATCH every morning AND REMOVE AT at bedtime 06/15 completed Not Available Not Available Not Available clindamycin HCl 300 mg capsule 11/13 completed Not Available Not Available Not Available cetirizine 10 mg tablet TAKE ONE TABLET BY MOUTH EVERY DAY 06/15 completed Not Available Not Available Not Available azithromyci n 250 mg tablet TAKE 2 TABLETS BY MOUTH ON DAY 1, THEN TAKE 1 TABLET DAILY ON DAYS 2-5 11/13 completed Not Available Not Available Not Available pravastatin 40 mg tablet TAKE ONE TABLET BY MOUTH DAILY replaces atorvasta tin active Not Available Not Available No t Available simethicone 180 mg capsule TAKE ONE CAPSULE BY MOUTH THREE TIMES DAILY with meals 06/15 completed Not Available Not Available Not Available tizanidine 4 mg tablet 11/13 completed Not Available Not Available Not Available fluconazole 150 mg tablet take one tablet BY MOUTH FOR ONE DOSE, THEN REPEAT one DOSE in ONE WEEK 12/04 completed Not Available Not Available Not Available benzonatate 200 mg capsule TAKE ONE CAPSULE BY MOUTH THREE TIMES DAILY NEEDED FOR 10 DAYS FOR cough 12/04 completed Not Available Not Available Not Available metoprolol succinate ER 50 mg tablet,exte nded release 24 hr 11/13 completed Not Available Not Available Not Available clarithromy angel 500 mg tablet TAKE ONE TABLET BY MOUTH EVERY TWELVE HOURS 11/13 completed Not Available Not Available Not Available hydrocodone 5 mg-acetamin ophen 325 mg tablet take TWO tablets BY MOUTH EVERY SIX hours NEEDED FOR SEVERE pain active Not Available Not Available No t Available meloxicam 15 mg tablet TAKE ONE TABLET BY MOUTH EVERY DAY 06/06 completed Not Available Not Available Not Available sucralfate 1 gram tablet TAKE 1 TABLET BY MOUTH AFTER A MEAL / AT BEDTIME NEEDED. MAKE SLURRY 06/06 completed Not Available Not Available Not Available ondansetron HCl 4 mg tablet TAKE ONE TABLET BY MOUTH EVERY EIGHT hours NEEDED FOR nausea AND vomiting 06/06 completed Not Available Not Available Not Available famotidine 40 mg tablet TAKE ONE TABLET BY MOUTH DAILY 11/13 completed Not Available Not Available Not Available prednisone 20 mg tablet TAKE TWO TABLETS BY MOUTH DAILY with food FOR FOUR DAYS. STARTING ON 05/26/201912/04 completed Not Available Not Available Not Available isosorbide mononitrate ER 30 mg tablet,exte nded release 24 hr take one-half TABLET BY MOUTH EVERY DAY 06/15 completed Not Available Not Available Not Available clindamycin HCl 150 mg capsule 06/06 completed Not Available Not Available Not Available clopidogrel 75 mg tablet TAKE ONE TABLET BY MOUTH EVERY DAY 11/13 completed Not Available Not Available Not Available amlodipine 5 mg tablet take one tablet BY MOUTH daily active Not Available Not Available No t Available divalproex 500 mg tablet,mariam yed release Take 1 tablet twice a day by oral route. active Not Available Not Available No t Available hydrocodone 10 mg-acetamin ophen 325 mg tablet take one tablet BY MOUTH FOUR TIMES DAILY 12/05 completed Not Available Not Available Not Available aspirin 81 mg tablet,mariam yed release Take 1 tablet every day by oral route. active Not Available Not Available No t Available butalbital- acetaminoph en-caffeine 50 mg-325 mg-40 mg tablet take one tablet BY MOUTH daily NEEDED 12/04 completed Not Available Not Available Not Available oxycodone-a cetaminophe n 5 mg-325 mg tablet TAKE ONE TABLET BY MOUTH EVERY EIGHT hours NEEDED FOR PAIN 08/01 completed Not Available Not Available Not Available ofloxacin 0.3 % ear drops INSTILL 10 DROPS INTO AFFECTED EAR(S) BY OTIC ROUTE ONCE DAILY x 7 DAYS. 02/21 completed Not Available Not Available Not Available alprazolam 0.25 mg tablet TAKE 1 TABLET BY MOUTH BEFORE MEALS/AT BEDTIME NEEDED 06/06 completed Not Available Not Available Not Available citalopram 20 mg tablet TAKE ONE TABLET BY MOUTH EVERY DAY 06/15 completed Not Available Not Available Not Available famotidine 20 mg tablet TAKE ONE TABLET BY MOUTH TWICE DAILY 06/15 completed Not Available Not Available Not Available amitriptyli ne 25 mg tablet TAKE ONE TABLET BY MOUTH at bedtime 11/13 completed Not Available Not Available Not Available Flagyl 500 mg tablet Take 1 tablet every 8 hours by oral route. 02/21 completed Not Available Not Available Not Available meclizine 25 mg tablet TAKE 1 TABLET BY MOUTH THREE TIMES DAILY NEEDED active Not Available Not Available No t Available baclofen 10 mg tablet Take 1 tablet 3 times a day by oral route as needed for 14 days. 08/01 completed Not Available Not Available Not Available amlodipine 10 mg tablet take one tablet BY MOUTH daily 12/04 completed Not Available Not Available Not Available benzonatate 100 mg capsule TAKE 1 CAPSULE BY MOUTH THREE TIMES DAILY FOR 10 DAYS 01/01 completed Not Available Not Available Not Available doxycycline monohydrate 100 mg capsule TAKE ONE CAPSULE BY MOUTH TWICE DAILY 01/01 completed Not Available Not Available Not Available hydrocodone 7.5 mg-acetamin ophen 325 mg tablet TAKE ONE TABLET BY MOUTH EVERY EIGHT hours NEEDED FOR PAIN 06/06 completed Not Available Not Available Not Available pantoprazol e 40 mg tablet,mariam yed release TAKE ONE TABLET BY MOUTH TWICE DAILY 11/13 completed Not Available Not Available Not Available metformin 1,000 mg tablet TAKE ONE TABLET BY MOUTH TWICE DAILY 11/13 completed Not Available Not Available Not Available Cipro 500 mg tablet Take 1 tablet every 12 hours by oral route. 02/21 completed Not Available Not Available Not Available buspirone 10 mg tablet TAKE ONE TABLET BY MOUTH THREE TIMES DAILY 06/15 completed Not Available Not Available Not Available lisinopril 10 mg tablet TAKE ONE TABLET BY MOUTH EVERY DAY 06/15 completed Not Available Not Available Not Available divalproex ER 500 mg tablet,exte nded release 24 hr TAKE ONE TABLET BY MOUTH TWICE DAILY active Not Available Not Available No t Available losartan 25 mg tablet TAKE ONE TABLET BY MOUTH DAILY active Not Available Not Available No t Available nitroglycer in 0.4 mg sublingual tablet DISSOLVE 1 TABLET UNDER THE TONGUE EVERY 5 MINUTES NEEDED FOR CHEST PAIN. DO NOT EXCEED A TOTAL OF 3 DOSES IN 15 MINUTES. active Not Available Not Available No t Available docusate sodium 100 mg capsule TAKE ONE CAPSULE BY MOUTH TWICE DAILY 06/06 completed Not Available Not Available Not Available buspirone 7.5 mg tablet TAKE ONE TABLET BY MOUTH TWICE DAILY 12/04 completed Not Available Not Available Not Available omeprazole 20 mg capsule,del ayed release take one capsule BY MOUTH daily 12/04 completed Not Available Not Available Not Available hydroxyzine HCl 25 mg tablet Take 1 tablet 4 times a day by oral route as needed. 11/13 completed Not Available Not Available Not Available Longs Adult Low Strength ASA 81 mg tablet,mariam yed release Take 1 tablet every day by oral route. 12/05 completed Not Available Not Available Not Available pravastatin 20 mg tablet take one tablet BY MOUTH daily 08/01 completed Not Available Not Available Not Available methylpredn isolone 4 mg tablets in a dose pack take by mouth as directed on package 08/01 completed Not Available Not Available Not Available albuterol sulfate HFA 90 mcg/actuati on aerosol inhaler inhale TWO puffs BY MOUTH EVERY 4 TO 6 HOURS NEEDED 12/04 completed Not Available Not Available Not Available Vitamin D2 1,250 mcg (50,000 unit) capsule TAKE ONE CAPSULE BY MOUTH EVERY WEEK active Not Available Not Available No t Available ondansetron 4 mg disintegrat ing tablet DISSOLVE 1 TABLET ON THE TONGUE EVERY 6 HOURS FOR 4 DAYS NEEDED active Not Available Not Available No t Available cefdinir 300 mg capsule take TWO capsules BY MOUTH daily FOR 10 DAYS active Not Available Not Available No t Available fluticasone propionate 50 mcg/actuati on nasal spray,suspe nsion SPRAY ONCE in each nostril TWICE DAILY NEEDED FOR congestio n AND drainage 06/06 completed Not Available Not Available Not Available lisinopril 2.5 mg tablet TAKE ONE TABLET BY MOUTH EVERY DAY 06/15 completed Not Available Not Available Not Available dicyclomine 10 mg capsule TAKE ONE TABLET BY MOUTH BEFORE MEALS AND at bedtime 11/13 completed Not Available Not Available Not Available metoclopram olga 10 mg tablet TAKE ONE TABLET BY MOUTH BEFORE MEALS AND at bedtime 11/13 completed Not Available Not Available Not Available tobramycin 0.3 %-dexametha sone 0.1 % eye drops,suspe nsion instill FOUR drops into THE affected eye(s) TWICE DAILY FOR SEVEN DAYS 08/01 completed Not Available Not Available Not Available ezetimibe 10 mg tablet take one tablet BY MOUTH daily 08/01 completed Not Available Not Available Not Available Stool Softener-La xative 8.6 mg-50 mg tablet TAKE ONE TABLET BY MOUTH DAILY 06/06 completed Not Available Not Available Not Available ciprofloxac in 0.3 %-dexametha sone 0.1 % ear drops,suspe nsion instill 4 drops in affected ear(s) TWICE DAILY FOR 7 DAYS active Not Available Not Available No t Available rosuvastati n 5 mg tablet TAKE ONE TABLET BY MOUTH AT BEDTIME 11/13 completed Not Available Not Available Not Available rosuvastati n 10 mg tablet TAKE ONE TABLET BY MOUTH EVERY DAY at bedtime 06/15 completed Not Available Not Available Not Available rosuvastati n 20 mg tablet 11/13 completed Not Available Not Available Not Available nitrofurant oin monohydrate /macrocryst als 100 mg capsule TAKE ONE CAPSULE BY MOUTH EVERY 12 hours FOR FIVE DAYS 12/04 completed Not Available Not Available Not Available OneTouch UltraMini kit USE DIRECTED TO CHECK SUGAR ONCE DAILY. 11/13 completed Not Available Not Available Not Available levocetiriz ine 5 mg tablet TAKE 1 TABLET BY MOUTH EVERYDAY AT BEDTIME 06/15 completed Not Available Not Available Not Available OneTouch Delica Lancets 33 gauge USE DIRECTED TO check sugar ONCE daily 11/13 completed Not Available Not Available Not Available OneTouch Verio test strips USE TO test blood sugar ONCE daily DIRECTED 06/06 completed Not Available Not Available Not Available Ultra Thin Lancets 30 gauge USE DIRECTED TO CHECK SUGAR ONCE DAILY. 11/13 completed Not Available Not Available Not Available Victoza 3-Syd 0.6 mg/0.1 mL (18 mg/3 mL) subcutaneou s pen injector inject 1.2 MG UNDER THE SKIN daily 06/06 completed Not Available Not Available Not Available Trulicity 0.75 mg/0.5 mL subcutaneou s pen injector inject 0.5 ML UNDER THE SKIN EVERY SEVEN DAYS 06/06 completed Not Available Not Available Not Available Incruse Ellipta 62.5 mcg/actuati on powder for inhalation inhale ONE PUFF BY MOUTH EVERY DAY 11/13 completed Not Available Not Available Not Available OneTouch Ultra Blue Test Strip USE DIRECTED TO test sugar ONCE daily 11/13 completed Not Available Not Available Not Available Fluzone Quad 2017-(PF) 60 mcg(15 mcgx4)/0.5 mL intramuscul ar syringe 11/13 completed Not Available Not Available Not Available FreeStyle Rosenda 14 Day Sensor kit APPLY sensor AND CHANGE EVERY 14 DAYS TO monitor glucose 12/04 completed Not Available Not Available Not Available Mounjaro 5 mg/0.5 mL subcutaneou s pen injector inject 5mg UNDER THE SKIN EVERY SEVEN DAYS active Not Available Not Available No t Available Mounjaro 2.5 mg/0.5 mL subcutaneou s pen injector Inject by subcutane ous route. 12/05 completed Not Available Not Available Not Available Dexcom G7 Boat Washer USE DIRECTED along with sensors active Not Available Not Available No t Available Dexcom G7 Sensor device CHANGE sensor EVERY 10 DAYS active Not Available Not Available No t Available Vitals Date Recorded Body height Body mass index (BMI) Body weight Respiratory rate Pain severity - 0-10 verbal numeric rating [Score] - Reported Body temperature Heart rate Oxygen saturation Oxygen saturation in Arterial blood by Pulse oximetry Systolic blood pressure Diastolic blood pressure Provider Name and Address Organization Details Last Updated DateTime 3 165.1 cm 33.1 kg/m2 48342.8 8 g 17 /min 8 97.6 [degF] 87 /min 98 % 98 % 138 mm[Hg] 80 mm[Hg] Kerri Ibarra [facility] 3 18:26:55 Date Recorded Body height Body temperature Heart rate Respiratory rate Oxygen saturation Oxygen saturation in Arterial blood by Pulse oximetry Systolic blood pressure Diastolic blood pressure Provider Name and Address Organization Details Last Updated DateTime 3 165.1 cm 99.2 [degF] 87 /min 20 /min 95 % 95 % 160 mm[Hg] 92 mm[Hg] Angie Tone [facility] 3 11:52:58 Date Recorded Body height Body temperature Body mass index (BMI) Body weight Heart rate Oxygen saturation Oxygen saturation in Arterial blood by Pulse oximetry Systolic blood pressure Diastolic blood pressure Provider Name and Address Organization Details Last Updated DateTime 4 165.1 cm 97.6 [degF] 31.9 kg/m2 54155.0 2 g 61 /min 86 % 86 % 149 mm[Hg] 90 mm[Hg] CORBIN Sanders [facility] 4 14:20:37 Date Recorded Body height Body temperature Heart rate Respiratory rate Oxygen saturation Oxygen saturation in Arterial blood by Pulse oximetry Systolic blood pressure Diastolic blood pressure Provider Name and Address Organization Details Last Updated DateTime 4 165.1 cm 97.1 [degF] 77 /min 18 /min 98 % 98 % 150 mm[Hg] 80 mm[Hg] Kerri Ibarra [facility] 4 15:32:11 Date Recorded Body height Respiratory rate Body mass index (BMI) Body weight Body temperature Pain severity - 0-10 verbal numeric rating [Score] - Reported Heart rate Systolic blood pressure Diastolic blood pressure Provider Name and Address Organization Details Last Updated DateTime 4 165.1 cm 16 /min 32.1 kg/m2 18834.3 3 g 97.9 [degF] 3 74 /min 156 mm[Hg] 88 mm[Hg] Amado Wells [facility] 4 16:01:08 Social History Question Answer Notes LastModified by Organizat ion Details LastModified Time Tobacco Smoking Status Former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
--- OUTSIDE RECORDS SUMMARY | 2024-12-02 13:49 | XMS_ITS | Encounter Summary ---
Author Organization [facility] Address [address] [place] [address] Care Team Providers Care Zanjero Name Role Phone Garcia Bennett MD Unavailable [phone] Milly Cordoba MD Primary Care Provider [phone] Vesna Garza MD Primary Care Provider [phone] Milly Cordoba MD Primary Care Provider [phone] Encounter Details Date Type Department Care Team (Late st Contact Info) Description 09/08/2019 Hospital Follow-up Call [facility] [address] [place] [address] Peg Mendosa Social History Tobacco Use Types Packs/Day Years Used Date Smoking Tobacco: Every Day Cigarettes 0.5 36 Smokeless Tobacco: Never Alcohol Use Standard Drinks/Week Comments No 0 (1 standard drink = 0.6 oz pur e alcohol) AUDIT-C Answer Date Recorded Frequency of Alcohol Consumption Never 10/01/2018 Average Number of Drinks Not on file 019 Frequency of Binge Drinking Not on file 09/03 Comments No Sex and Gender Information Value Date Recorded Sex Assigned at Not on file Legal Sex Female 8:39 PM CONCRETE JOURNEYMAN Gender Identity Female 01/02/2022 11:38 AM CDT Sexual Orientation Straight 01/02/2022 11 :38 AM CDT documented as of this encounter Functional Status * RETIRED Are you deaf or do you have serious difficulty hearing Answer Date of Assessment Author Status No 09/07/2019 12:45 AM CONCRETE JOURNEYMAN Acti ve * RETIRED Are you blind or do you have serious difficulty seeing, even when wearing glasses? Answer Date of Assessment Author Status No 09/07/2019 12:45 AM CONCRETE JOURNEYMAN Acti ve * Do you have serious difficulty walking or climbing stairs? Answer Date of Assessment Author Status No 09/07/2019 12:45 AM Marycruz Azevedo RN Active * Do you have difficulty dressing or bathing? Answer Date of Assessment Author Status No 09/07/2019 12:45 AM Marycruz Azevedo RN Active * Because of a physical, mental, or emotional condition, do you have difficulty doing errands alone such as visiting a doctor's office or shopping? Answer Date of Assessment Author Status No 09/07/2019 12:45 AM Marycruz Azevedo RN Active documented as of this encounter Mental Status * Because of a physical, mental, or emotional condition, do you have serious difficulty concentrating, remembering, or making decisions? Answer Entry Date Author Status No 09/07/2019 12:45 AM Marycruz Azevedo RN Active documented in this encounter Plan of Treatment Not on file documented as of this encounter Visit Diagnoses Not on filedocumented in this encounter Care Teams Zanjero Relationship Specialty Start Date End Date Milly Cordoba MD [address] [place] [address] PCP - General FAMILY PRACTICE 08/15/18 09/29/19 Vesna Garza MD [address] [place] [address] PCP - General FAMILY PRACTICE 09/30/19 03/19/24 Milly Cordoba MD [address] [place] [address] PCP - General FAMILY PRACTICE 03/20/24 Garcia Bennett MD [address] [address] [place] Medicaid Plan Compliance Director CARDIOVASCULAR DISEASE 01/21/18 documented as of this encounter
--- OUTSIDE RECORDS SUMMARY | 2024-12-02 13:49 | XMS_ITS | Encounter Summary ---
[facility] Organization [facility] Address [address] [place] [address] Care Team Providers Care Test Inspection Engineer Name Role Phone Milly Cordoba MD Primary Care Provider Encounter Details Date Type Department Care Team (Late st Contact Info) Description 11/30/2024 External Device Data [place] ABSTRACTION Provider, Abstract NO ADDRESS ON FILE Social History Tobacco Use Types Packs/Day Years [...] on filedocumented in this encounter Care Teams Test Inspection Engineer Relationship Specialty Start Date End Date Milly Cordoba MD PCP - General Family Practice 01/14/24 documented as of this encounter
--- OUTSIDE RECORDS SUMMARY | 2024-12-02 13:49 | XMS_ITS | Encounter Summary ---
Author Organization [facility] Address [address] [place] [address] Care Team Providers Care Punchboard Stuffer Name Role Phone Garcia Bennett MD Unavailable [phone] Vesna Garza MD Primary Care Provider [phone] Milly Cordoba MD Primary Care Provider [phone] Encounter Details Date Type Department Care Team (Late st Contact Info) Description 04/26/2021 Hospital Follow-up Call [facility] Telemetry [address] [place], [place] [id number] Shira Kim, RN Social History Tobacco Use Types Packs/Day Years Used Date Smoking Tobacco: Every Day Cigarettes 1 36 Smokeless Tobacco: Never Alcohol Use Standard [...] on file Legal Sex Female 8:39 PM BARMAID Gender Identity Female 01/02/2022 11:38 AM CDT Sexual Orientation Straight 01/02/2022 11 :38 AM CDT COVID-19 Exposure Response Date Recorded In the last month, have you been in contact with someone who was confirmed or suspected to have Coronavirus / COVID-19? No / Unsure 04/21/2021 4:11 PM CDT documented as of this encounter Functional Status * RETIRED Are you deaf or do you have serious difficulty hearing Answer Date of Assessment Author Status No 04/21/2021 11:05 PM CDT Acti ve * RETIRED Are you blind or do you have serious difficulty seeing, even when wearing glasses? Answer Date of Assessment Author Status No 04/21/2021 11:05 PM CDT Acti ve * Do you have serious difficulty walking or climbing stairs? Answer Date of Assessment Author Status No 04/21/2021 11:05 PM CDT Nissa Gasca RN Active * Do you have difficulty dressing or bathing? Answer Date of Assessment Author Status No 04/21/2021 11:05 PM CDT Nissa Gasca RN Active * Because of a physical, mental, or emotional condition, do you have difficulty doing errands alone such as visiting a doctor's office or shopping? Answer Date of Assessment Author Status No 04/21/2021 11:05 PM CDT Nissa Gasca RN Active documented as of this encounter Mental Status * Because of a physical, mental, or emotional condition, do you have serious difficulty concentrating, remembering, or making decisions? Answer Entry Date Author Status No 04/21/2021 11:05 PM KYLAHT Nissa Gasca RN Active documented in this encounter Plan of Treatment Not on file documented as of this encounter Goals Goal Patient Goal Type Associated Problems Recent Progress Patient-Stated? Author Safety Patient/family will have appropriate support at home upon discharge General No Fouzia Salazar RN documented as of this encounter Visit Diagnoses Not on filedocumented in this encounter Care Teams Punchboard Stuffer Relationship Specialty Start Date End Date Vesna Garza MD [address] [address] PCP - General FAMILY PRACTICE 09/30/19 03/19/24 Milly Cordoba MD [address] [place] [address] PCP - General FAMILY PRACTICE 03/20/24 Garcia Bennett MD [facility]. [address] [address] [place] [employer] Rifler Broach CARDIOVASCULAR DISEASE 01/21/18 documented as of this encounter
--- OUTSIDE RECORDS SUMMARY | 2024-12-02 13:49 | XMS_ITS | Encounter Summary ---
Author Organization [facility] Healthcare Address [address] [place] [address] Care Team Providers Care Cuff Turner Machine Operator Name Role Phone Lele Millan DO Unavailable [phone] Patricia Nichols Primary Care Provider + Encounter Details Date Type Department Care Team (Late st Contact Info) Description 10/18/2024 Results Follow-Up [facility] Neurology [address] [phone] Sarah Rodriguez SEAM FINISHER [address] [address] Social History Tobacco Use Types Packs/Day Years [...] points, staff should administer the PHQ-9) 0 08/17/2024 PHQ-9 Answer Date Recorded PHQ-9 Total Score 8 07/14/2024 Personal Safety Answer Date Recorded Have you ever been in or are you currently in a harmful physical or emotional relationship or is someone making you feel afraid or unsafe? 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
--- OUTSIDE RECORDS SUMMARY | 2024-12-02 13:50 | XMS_ITS ---
Author Organization Unknown Address [address], [place] [id number] Phone Care Team Providers Care Screening Specialist Name Role Phone LAVELLE JUAN Attending Unavailable Immunization Immunization Date Status Additional Notes Code Code System Pneumococcal conjugate PCV20 , polysaccharide KVS435 conjugate, adjuvant, PF 05/24/2024 Completed 216 CVX [...] PPV23 06/18/2019 Completed 33 CVX Results MRI LUMBOSACRAL W/O CONTRAST - Completed: 11/01/2024 11:38 LOINC: EXAMINATION: MRI lumbar spin e without contrastACCESSION: [id number] DATE/TIME: 11/01/2024 10:58 AM REASON FOR EXAM: Low back pain with bilateral lower extremity pain and numbness and weakness. Worse since surgery in May 2024.COMPARISON: Lumbar spine radiographs 06/26/2023. No prior lumbar MRI.TECHNIQUE: Multiplanar, multisequence MRI of the lumbar spine was obtained without the use of an IV contrast agent. FINDINGS: There are 5 nonrib-bearing lumbar-type vertebral bodies. Vertebral body heights and alignment appear preserved. No evidence of acute fracture or dislocation. No focal bone marrow signal abnormalities in the lumbar spine. Conus medullaris is normal in caliber and signal intensity and terminates at L1 vertebral body level. The visualized ascending aorta and iliac arteries are normal in caliber. The superior bilateral SI joints are visualized and within normal limits. No significant paravertebral soft tissue structural abnormalities. Minimal degenerative changes are seen. Individual levels as follows:L1-L2: Mild disc desiccation. No disc protrusion. Minimal facet disease. No spinal canal or foraminal stenosis on either side.L2-L3: Minimal disc desiccation. Tiny anterior annular fissure. No disc protrusion. Mild facet disease. No spinal canal or foraminal stenosis.L3-L4: No significant disc pathology. No disc protrusion. Minimal facet disease and ligamentum flavum thickening. Minimal spinal canal stenosis. Minimal foraminal stenosis bilaterally.L4-L5: Disc desiccation. Midline small to moderate sized posterior disc protrusion effaces anterior thecal sac. Mild facet disease with ligamentum flavum thickening more prominent on the right. Subtle abnormal signal in the left posterior paraspinal musculature with abnormal intensity in the left lamina suggesting prior surgery at this location. Moderate to severe spinal canal stenosis. Mild right and mild to moderate left foraminal stenosis.L5-S1: Minimal disc desiccation. No disc protrusion. Mild facet disease. No spinal canal stenosis. No foraminal stenosis on either side.===== IMPRESSION: =====1. Postsurgical changes on the left at L4-L5 level.2. Most prominent spinal canal stenosis at L4-L5 level rated as moderate to severe. Additional levels as above.3. Most prominent foraminal stenosis on the left at L4-L5 rated as mild to moderate. Additional levels as above.4. Multilevel facet disease with no significant fluid collections in any facet joints to suggest active inflammation. Created and Electronically Signed by:Zion Dixon MD11/02/2024 08:45 Social History Type Status Start Date End Date Code Code Syst em Smoking History Never smoker (Never Smoked) [id number] SNOMED CT Sex Female Hospital Discharge Instructions Should you have any questions prior to discharge, please contact a member of your healthcare team. If you have left the hospital and have any questions, please contact your primary care physician. Reason For Referral No Data Found Plan of Treatment No Data Found Encounters Encounter Diagnosis Start Date Code Code Sys tem Spinal stenosis in cervical region 11/01/2024 [id number] SNOMED-CT Personal Care Team Section Performer Name Performer Role Active Date Inactive Da te Imaging Narrative Notes [facility] 11/02/2024 08:46 1 [facility] [address] [place] [address] RADIOLOGY REPORT NAME: NUMBER: SEX: AGE: ADMIT: SERVICE: Type: LUKE ROBERTS [id number] F [id number] 11/01/24 AX 2 DATE OF : 1970 M/R#: [id number] HOME PHONE: [phone] RM: CELL PHONE: [phone] ACCESSION NUMBER: [id number] MRI LUMBOSACRAL W/O CONTRAST COMPLETE: 11/01/2024 11:38 KB ATTENDING PHYSICIAN: DRAKE VALEDRRAMA SECOND PHYSICIAN: DICTATING PHYSICIAN: Zion Dixon MD PRIMARY CARE PHYSICIAN: Unsigned transcriptions represent a preliminary report and do not represent a medical or legal document EXAMINATION: MRI lumbar spine without contrast EXAM DATE/TIME: 11/01/2024 10:58 AM REASON FOR EXAM: Low back pain with bilateral lower extremity pain and numbness and weakness. Worse since surgery in May 2024. COMPARISON: Lumbar spine radiographs 06/26/2023. No prior lumbar MRI. TECHNIQUE: Multiplanar, multisequence MRI of the lumbar spine was obtained without the use of an IV contrast agent. FINDINGS: There are 5 nonrib-bearing lumbar-type vertebral bodies. Vertebral body heights and alignment appear preserved. No evidence of acute fracture or dislocation. No focal bone marrow signal abnormalities in the lumbar spine. Conus medullaris is normal in caliber and signal intensity and terminates at L1 vertebral body level. The visualized ascending aorta and iliac arteries are normal in caliber. The superior bilateral SI joints are visualized and within normal limits. No significant paravertebral soft tissue structural abnormalities. Minimal degenerative changes are seen. Individual levels as follows: L1-L2: Mild disc desiccation. No disc protrusion. Minimal facet disease. No spinal canal or foraminal stenosis on either side. L2-L3: Minimal disc desiccation. Tiny anterior annular fissure. No disc protrusion. Mild facet disease. No spinal canal or foraminal stenosis. [id number] [place] [address] RADIOLOGY REPORT NAME: NUMBER: SEX: AGE: ADMIT: SERVICE: Type: LUKE ROBERTS [id number] F [id number] 11/01/24 AX 2 DATE OF : 1970 M/R#: [id number] HOME PHONE: [phone] RM: CELL PHONE: [phone] ACCESSION NUMBER: [id number] MRI LUMBOSACRAL W/O CONTRAST COMPLETE: 11/01/2024 11:38 KB ATTENDING PHYSICIAN: DRAKE VALDERRAMA SECOND PHYSICIAN: DICTATING PHYSICIAN: Zion Dixon MD PRIMARY CARE PHYSICIAN: Unsigned transcriptions represent a preliminary report and do not represent a medical or legal document L3-L4: No significant disc pathology. No disc protrusion. Minimal facet disease and ligamentum flavum thickening. Minimal spinal canal stenosis. Minimal foraminal stenosis bilaterally. L4-L5: Disc desiccation. Midline small to moderate sized posterior disc protrusion effaces anterior thecal sac. Mild facet disease with ligamentum flavum thickening more prominent on the right. Subtle abnormal signal in the left posterior paraspinal musculature with abnormal intensity in the left lamina suggesting prior surgery at this location. Moderate to severe spinal canal stenosis. Mild right and mild to moderate left foraminal stenosis. L5-S1: Minimal disc desiccation. No disc protrusion. Mild facet disease. No spinal canal stenosis. No foraminal stenosis on either side. ===== IMPRESSION: ===== 1. Postsurgical changes on the left at L4-L5 level. 2. Most prominent spinal canal stenosis at L4-L5 level rated as moderate to severe. Additional levels as above. 3. Most prominent foraminal stenosis on the left at L4-L5 rated as mild to moderate. Additional levels as above. 4. Multilevel facet disease with no significant fluid collections in any facet joints to suggest active inflammation. Created and Electronically Signed by: Zion Dixon MD 11/02/2024 08:45
--- OUTSIDE RECORDS SUMMARY | 2024-12-02 13:50 | XMS_ITS | Referral Summary ---
Author Organization [facility] Address [address] [place] [address] Care Team Providers Care Clothes Presser Name Role Phone Lele Millan DO Unavailable [phone] Patricia Nichols Primary Care Provider + Encounters Date Type Department Care Team Description 11/11/2024 2:00 PM CDT Telemedicine [address] [phone] Patricia Nichols PA Type 2 diabetes mellitus without complication, without long-term current use of insulin (HCC) (Primary Dx); Vitamin D deficiency; Dyslipidemia; Coronary artery disease involving tunica-biloxi coronary artery of tunica-biloxi heart without angina pectoris 11/11/2024 Nurse [address] [phone] Milly Carlin RN 11/09/2024 Results Follow-Up [address] [phone] Patricia Nichols PA 11/09/2024 1:59 PM CDT - 11/09/2024 11:59 PM CDT Hospital Encounter [facility] [address] [place] [address] Encounter for screening mammogram for malignant neoplasm of breast Discharge Disposition: Discharge to home or self care 10/18/2024 Results Follow-Up [facility] [address] [place] [address] [place] [phone] Sarah Rodriguez NP 10/13/2024 11:00 AM SEAL DELIVERY VEHICLE OFFICER Lab [facility] Office Bldg [address] OP Lab [address] [place] [id number] Medication monitoring encounter; Paresthesia of skin 10/13/2024 10:00 AM SEAL DELIVERY VEHICLE OFFICER Office Visit [facility] [address] [place] [address] [place] [phone] Sarah Rodriguez NP Nonintractable epilepsy without status epilepticus, unspecified epilepsy type (HCC) (Primary Dx); Paresthesia of skin; Medication monitoring encounter 10/08/2024 Letter (Out) [address] [phone] 10/08/[address] [phone] Patricia Nichols PA Test Results 10/07/2024 11:10 AM SEAL DELIVERY VEHICLE OFFICER - 10/07/2024 11:59 PM SEAL DELIVERY VEHICLE OFFICER Hospital Encounter [facility] MRI [address] [place] [id number] Dizziness; Paresthesias; Persistent headaches Discharge Disposition: Discharge to home or self care 10/07/2024 11:11 AM SEAL DELIVERY VEHICLE OFFICER - 10/07/2024 11:59 PM SEAL DELIVERY VEHICLE OFFICER Hospital Encounter [facility] MRI [address] [place] [id number] Chronic bilateral thoracic back pain Discharge Disposition: Discharge to home or self care 10/01/2024 9:00 AM SEAL DELIVERY VEHICLE OFFICER Office Visit [address] [phone] Patricia Nichols PA Abdominal wall seroma, sequela (Primary Dx); Dizziness; Persistent headaches; Paresthesias; Chronic bilateral thoracic back pain; Left ear pain from Last 3 Months Allergies Active Allergy Reactions Criticality Noted Date Comments Ampicillin Rash Medium 06/27/2020 Bupropion Angioedema High 09/16/2019 Citalopram Anxiety Low 10/25/2019 Colesevelam Anaphylaxis High 06/27/2020 Rosuvastatin Fatigue Low 12/28/2019 Dexlansoprazole Other (See comments) Low 06/21/2024 N/A Dapagliflozin Other (See comments) Low 03/15/2021 Headache Fluoxetine Mental status changes Low 09/16/2019 Iodinated Contrast Media Chest tightness Medium 2023 Patient states when she gets contrast has slight chest tightness and anxiety. Has had contrast twice, mild chest tightness for a few seconds. -03/23/24 Iodine Swelling High 09/08/2024 States throat closes/can't breathe and chest pain Lisinopril Swelling High 02/19/2022 Throat swelled Metformin Stomach upset Low 03/15/2021 Nsaids (Non-Steroidal Anti-Inflammatory Drug) Other (See comments) Low 04/15/1999 Penicillins Rash Medium 09/16/2019 Quetiapine Angioedema High 09/16/2019 Sertraline Rash Medium 09/16/2019 Sulfa (Sulfonamide Antibiotics) Hives,Rash High 11/23/2016 Tramadol Rash,Nausea & Vomiting Medium 12/15/2018 feel weird Medications aspirin 81 mg enteric coated tablet Take 1 tablet (81 mg total) by mouth every morning Active ondansetron (ZOFRAN) 4 mg tablet Take 1 tablet (4 mg total) by mouth every 8 (eight) hours as needed for nausea or vomiting 40 tablet 022 Active nitroglycerin (NITROSTAT) 0.[address] 1 tablet (0.4 mg total) under the tongue every 5 (five) minutes as needed for chest pain 25 tablet 1 023 Active blood-glucose meter,continu ous (Dexcom G7 Auto Tech) misc Use as directed 1 each 3 024 Active ergocalcifero l (VITAMIN D) 50,000 unit capsule Take 1 capsule (50,000 Units total) by mouth once a week Active tirzepatide (Mounjaro) 2.5 mg/0.5 mL pen injectorIndic ations:Type 2 diabetes mellitus without complication, without long-term current use of insulin (HCC) Inject 2.5mg subcutaneously every 10 days Active Additional Information Patient taking differently: Per patient currently taking 7.5 mg once weekly, Reported on 11/11/2024 meclizine (ANTIVERT) 12.5 mg tabletIndicat ions:Vertigo Take 1 tablet (12.5 mg total) by mouth 3 (three) times a day as needed for dizziness 20 tablet Active Additional Information Patient not taking.Reported on 11/11/2024 senna-docusat e (PERICOLACE) 8.6-50 mg Take 1 tablet by mouth 2 (two) times a day as needed for constipation 30 tablet Active Additional Information Patient not taking.Reported on 11/11/2024 oxyCODONE-mohsen taminophen (PERCOCET) 5-325 mg per tabletIndicat ions:Pain Take 1 tablet by mouth every 4 (four) hours as needed for pain May take 2 tablets prior to wound vac change once daily PRN; max 7 pills/day 40 tablet Active Additional Information Patient not taking.Reported on 11/11/2024 famotidine (PEPCID) 20 mg tablet Take 1 tablet (20 mg total) by mouth 2 (two) times a day Active divalproex ER (DEPAKOTE ER) 500 mg 24 hr tablet Take 1 tablet (500 mg total) by mouth daily 90 tablet 3 025 2025 Active butalbital-ac etaminophen-c affeine (ESGIC) 50-325-40 mg per tablet Take 1 tablet by mouth daily as needed Active HYDROcodone-a cetaminophen (NORCO) 5-325 mg per tablet TAKE ONE TABLET BY MOUTH FIVE TIMES DAILY Active amLODIPine (NORVASC) 5 mg tablet Take 1 tablet (5 mg total) by mouth daily Active empagliflozin (JARDIANCE) 25 mg tabletIndicat ions:Type 2 diabetes mellitus without complication, without long-term current use of insulin (HCC) Take 1 tablet (25 mg total) by mouth daily 30 tablet 5 Active evolocumab (Repatha SureClick) 140 mg/mL pen injectorIndic ations:Dyslip idemia,Potter ry artery disease involving tunica-biloxi coronary artery of tunica-biloxi heart without angina pectoris Inject 1 mL (140 mg total) under the skin every 14 (fourteen) days 2 mL 5 025 Active Dexcom G7 Sensor device CHANGE EVERY 10 DAYS 3 each 2 025 Active evolocumab (Repatha SureClick) 140 mg/mL pen injectorIndic ations:Potter ry artery disease involving tunica-biloxi coronary artery of tunica-biloxi heart without angina pectoris,Dysl ipidemia Inject 1 mL (140 mg total) under the skin every 14 (fourteen) days 2 mL 5 024 2024 Discontinued(R eorder) blood-glucose sensor (Dexcom G7 Sensor) device Change every 10 days 3 each 2 024 2024 Discontinued Active Problems Problem Noted Date Diagnosed Date Abdominal wall seroma, sequela 07/24/2024 Assessment & Plan (07/26/2024 11:36 AM SEAL DELIVERY VEHICLE OFFICER): Patient is status post wound exploration and wound VAC placement with Dr. Santos 07/24/24. She has been taking hydrocodone 5/325 mg every 6 hours as needed, but reports her postop pain is not well-controlled. Her surgeon is not managing her postop pain since she is already under care with our office. Temporarily increase frequency of hydrocodone to every 4 hours as needed. Patient can take 2 pills prior to wound VAC care as needed. Continue this dosing schedule for up to 7 days and this acute postop., And then work on weaning dose down. Patient just got her medication filled on 07/19/2024, she will alert me when she is getting low on her pills for refill as needed. Requesting prescription stool softener. Patient also has MiraLax to use as needed. Incisional hernia without obstruction or gangren e 06/11/2024 Recurrent incisional hernia 06/04/2024 Lumbar degenerative disc disease 07/02/2023 Assessment & Plan (07/29/2023 2:16 PM SEAL DELIVERY VEHICLE OFFICER): Worsening symptoms with severe spinal stenosis Refer to pain management Refer to neurosurgery Neurogenic claudication due to lumbar spinal randy nosis 07/02/2023 Assessment & Plan (06/10/2024 9:07 AM CDT): Chronic, stable. Status post lumbar surgery 05/04/[address] Bobo. Patient requesting refill of her hydrocodone. She does have chronic pain in multiple joints, thoracic and cervical spine as well. Has upcoming surgery for hernia repair. Planning on other spinal surgery in the near future as well. She has been on pain medication chronically in the past. Controlled Substance Agreement reviewed with patient in office. Signed by patient. [place] PDMP reviewed. No suspicious activity. Patient understands risks of use of medication. 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 The patient was seen by the emergency room as well as by the occupational medicine physician at [facility] and physician judicial administrative assistant Shalonda on November 09, 2021 without any mention of left ankle or foot pain. The first documentation of ankle pain occurs in the office note of November 20 2021 by FRIEDA Liz. X-rays of the left ankle show well-preserved joint spaces. Clinically the patient's physical exam is inconsistent. There is no visible signs of swelling. There is mild pain with talar tilt but a negative anterior talar drawer. It is my medical opinion that the patient does not need any additional treatment on the left ankle as result of the accident that occurred on October 2021. She can return to work full duties without restrictions. Palpitations 06/12/2021 Statin intolerance 09/26/2020 Assessment & Plan (09/12/2022 2:30 PM SEAL DELIVERY VEHICLE OFFICER): Cannot take statins Was on Repatha/praluent per cardiology Assessment & Plan (04/16/2021 2:23 PM CDT): On Repatha Assessment & Plan (09/26/2020 12:43 PM SEAL DELIVERY VEHICLE OFFICER): Seeing cardiology now - working on approval for injectable meds - Praluent or Repatha. Chronic pelvic pain in female 09/26/2020 Assessment & Plan (09/26/2020 12:50 PM SEAL DELIVERY VEHICLE OFFICER): Refer to new pain management Alum Bridge PRN Other chronic pain 08/19/2020 Assessment & Plan (08/17/2024 8:54 AM SEAL DELIVERY VEHICLE OFFICER): Chronic pain related to recurrent abdominal hernia (postop exploratory surgery), chronic low back pain, chronic thoracic back pain, chronic neck pain, pain of multiple joints - Following with general surgeon, Dr. Santos. Established patient of Dr. Bobo, spinal surgeon Previously patient of Dr. Jackson, pain management Discussed with patient today the complexity of her pain and need for comprehensive treatment plan with a roof cement and paint maker. We want to prioritize non- opioid options and if opioids are indicated, using the lowest effective dose or the shortest duration possible. Options moving forward would be to slowly wean her dose of opioids down appropriately or she can return to seeing pain management as she was previously. I have already touched base with Dr. Santos's office and awaiting a return call to discuss surgeon taking over pain medication in the post-op period. Tammy will also discuss with Dr. Santos today at her follow up appointment scheduled for later this AM. Recommend patient return to pain management for ongoing comprehensive pain control plan. She is also planning on future spinal surgeries once her abdominal wound is healed. Advised pt to discuss further/ongoing use of opioids (or in the postop periods in the future) with her established specialists. She voiced understanding and is agreeable to this plan. Assessment & Plan (07/14/2024 11:58 AM SEAL DELIVERY VEHICLE OFFICER): Patient feels the 7.5mg norco is too strong now. Wanting to back off - has about a week's worth left. She will try cutting in half and potentially decreasing to 5/325mg with next refill. Assessment & Plan (05/14/2023 11:53 AM CDT): Chronic, worse in the last 5 days No improvement with Alum Bridge and Flexeril Allergy to NSAIDs Recommend OTC lidocaine patches Discussed with patient that we are unable to provide further pain management at [facility], advised the patient follow up with her PCP for pain management and go to ER if her symptoms worsen or if she has loss of bowel or bladder, numbness high fever or worsening pain. Patient verbalized understanding and requesting work note for the next few days and will follow up with her PCP. Work note provided to patient. Assessment & Plan (03/12/2022 7:13 PM CDT): Stable - pain management with norco Assessment & Plan (09/26/2020 12:49 PM SEAL DELIVERY VEHICLE OFFICER): Seeing pain management, but needing new referral to provider closer to home. Will refer. I will manage her pain meds in the interim. Assessment & Plan (08/19/2020 5:42 PM SEAL DELIVERY VEHICLE OFFICER): Stable Cont Alum Bridge per pain management S/P right knee arthroscopy 02/28/2020 Overview (02/28/2020): Added automatically from request for surgery [id number] Chronic pain of both shoulders 12/28/2019 Assessment & Plan (07/14/2024 11:58 AM SEAL DELIVERY VEHICLE OFFICER): Patient feels the 7.5mg norco is too strong now. Wanting to back off - has about a week's worth left. She will try cutting in half and potentially decreasing to 5/325mg with next refill. Assessment & Plan (12/28/2019 6:56 AM CDT): New and worsening Order xrays Order labs to r/o connective tissue d/o Take NSAID Hip pain, bilateral 12/28/2019 Assessment & Plan (09/26/2020 12:51 PM SEAL DELIVERY VEHICLE OFFICER): Alum Bridge PRN New pain management referral Assessment & Plan (12/28/2019 6:56 AM CDT): New and worsening Order xrays Order labs to r/o connective tissue d/o Take NSAID Chronic pain of right knee 12/28/2019 Assessment & Plan (12/28/2019 6:56 AM CDT): New and worsening Order xrays Order labs to r/o connective tissue d/o Take NSAID PRAKASH (obstructive sleep apnea) 12/13/2019 Assessment & Plan (02/01/2020 6:13 AM CDT): Uncontrolled possible Order referral to sleep center Chronic fatigue 12/13/2019 Assessment & Plan (02/01/2020 6:17 AM CDT): Labs normal Possibly secondary to her PRAKASH so will get reevaluated Chronic neck pain 12/13/2019 Assessment & Plan (09/26/2020 12:50 PM SEAL DELIVERY VEHICLE OFFICER): Refer to new pain management in this area Assessment & Plan (02/01/2020 6:13 AM CDT): New Order flector patch Order PT Chronic bilateral thoracic back pain 12/13/2019 Assessment & Plan (07/14/2024 11:58 AM SEAL DELIVERY VEHICLE OFFICER): Patient feels the 7.5mg norco is too strong now. Wanting to back off - has about a week's worth left. She will try cutting in half and potentially decreasing to 5/325mg with next refill. Assessment & Plan (06/10/2024 9:07 AM CDT): Chronic, worsening. Hydrocodone 7.5 mg every 6 hours as needed. Discussed with patient about trying to wean this medication down. Assessment & Plan (02/01/2020 6:13 AM CDT): New Order flector patch Order PT Atherosclerosis 10/25/2019 Nonintractable epilepsy without status epileptic us 10/16/2019 Assessment & Plan (06/10/2024 9:06 AM CDT): Chronic, stable. Continue Depakote 500 mg twice daily. Referral to neurology Assessment & Plan (04/16/2021 2:23 PM CDT): Stable IN (myocardial infarction) 09/16/2019 Overview (09/16/2019): TIMES 2 Assessment & Plan (09/16/2019 3:59 PM SEAL DELIVERY VEHICLE OFFICER): 2 back to back IN's age 47 - on Plavix, h/o coronary stenting CHRISTIANNE (generalized anxiety disorder) 09/16/2019 Assessment & Plan (09/16/2019 4:00 PM SEAL DELIVERY VEHICLE OFFICER): Try Buspar Meds failed prior: Lexapro, Celexa, Zoloft, diazepam Vitamin D deficiency 09/16/2019 Assessment & Plan (11/11/2024 2:10 PM CDT): Recheck Vitamin D levels Orders: Comprehensive metabolic panel; Future Lipid panel; Future Hemoglobin A1c; Future Albumin Creatinine Ratio, Urine; Future Vitamin D 25 hydroxy; Future Assessment & Plan (07/29/2023 10:47 AM SEAL DELIVERY VEHICLE OFFICER): Chronic Stable Cont vitamin d Assessment & Plan (09/12/2022 2:28 PM SEAL DELIVERY VEHICLE OFFICER): Stable, no changes. Continue current regimen with supplement Assessment & Plan (02/15/2021 10:22 AM CDT): Repeat levels Assessment & Plan (08/19/2020 5:42 PM SEAL DELIVERY VEHICLE OFFICER): Stable Naturally controlled Assessment & Plan (10/07/2019 11:18 AM SEAL DELIVERY VEHICLE OFFICER): Restart Vitamin D supplement, once weekly Assessment & Plan (09/16/2019 4:00 PM SEAL DELIVERY VEHICLE OFFICER): Check levels Type 2 diabetes mellitus wit hout complication, without long-term current use of insulin 06/15/2019 Assessment & Plan (11/11/2024 2:10 PM CDT): Elevated blood glucose levels, highest 328 mg/dL. Previous medications caused GI issues. Steroid injections may have contributed to glucose spike. A1c was 5.7% less than six months ago. Jardiance proposed for glucose control and renal/cardiac benefits. - Continue Mounjaro at current dose of 7.5mg weekly or reduce to 5 mg if GI issues persist. - Start Jardiance 25mg dailiy - Refer to paper tester for further management. - May need to restart insulin if still uncontrolled - Order A1c, metabolic panel, and cholesterol tests Orders: empagliflozin (JARDIANCE) 25 mg tablet; Take 1 tablet (25 mg total) by mouth daily Comprehensive metabolic panel; Future Lipid panel; Future Hemoglobin A1c; Future Albumin Creatinine Ratio, Urine; Future Vitamin D 25 hydroxy; Future Ambulatory referral to Endocrinology; Future Assessment & Plan (07/14/2024 11:57 AM SEAL DELIVERY VEHICLE OFFICER): Some hypoglycemia. Decrease frequency of mounjaro injection to every 10 days or even every 14 days depending on progress. Assessment & Plan (06/10/2024 9:05 AM CDT): Chronic, stable. Last A1c was very well controlled. Patient would like to restart her Mounjaro for glucose control and weight loss. She did well with this in the past. Previously was on 7.5 mg weekly. We will restart Mounjaro 2.5 mg weekly and titrate up as tolerated Recent labs reviewed Assessment & Plan (07/29/2023 2:14 PM SEAL DELIVERY VEHICLE OFFICER): Chronic Get updated labs Goal: hgba1c<6.5 Assessment & Plan (03/25/2023 9:55 AM CDT): Stop Trulicity Start Mounjaro - 2.5mg samples given 5mg dose sent to pharmacy to start in 4 weeks after finishes starting dose Follows with cardiology Eye exam - will get report Assessment & Plan (09/12/2022 2:29 PM SEAL DELIVERY VEHICLE OFFICER): To get labs done Victoza not working as well now Stop victoza - start Mounjaro, discussed dosing Assessment & Plan (03/12/2022 7:12 PM CDT): Glucose well controlled See if insurance will cover ozempic now - stop victoza Assessment & Plan (04/16/2021 2:23 PM CDT): Stable Ozempic Assessment & Plan (03/15/2021 11:28 AM CDT): Past treatment include insulin, metformin, farxiga - did not tolerate well Will start Ozempic weekly Assessment & Plan (02/15/2021 10:22 AM CDT): Not tolerating metformin well, will stop Start Farxiga Assessment & Plan (09/26/2020 12:49 PM SEAL DELIVERY VEHICLE OFFICER): Stable, no changes. Continue current regimen with metformin. Will monitor glucose at home more closely. New meter/supplies sent to pharmacy. Will get report from eye exam. Taking Aspirin. Not on statin - intolerant. Seeing cardiology. No MOHSEN/ARB currently Assessment & Plan (08/19/2020 5:41 PM SEAL DELIVERY VEHICLE OFFICER): Stable cont glucophage Assessment & Plan (01/25/2020 1:39 PM CDT): Order updated labs Cont metformin stable Assessment & Plan (09/16/2019 3:59 PM SEAL DELIVERY VEHICLE OFFICER): Stable, no changes. Continue current regimen with metformin. A1c done while hospitalized well controlled 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 Gastroesophageal reflux disease without esophagi tis 12/17/2018 Assessment & Plan (08/17/2024 8:55 AM SEAL DELIVERY VEHICLE OFFICER): Chronic, not well controlled Pt experienced side effects with famotidine that resolved once she discontinued medication GERD still not well controlled - having daily heartburn/reflux symptoms She did well with pantoprazole in the past, but just felt it lost its effectiveness after a while Restart pantoprazole 40mg daily Assessment & Plan (08/19/2020 5:42 PM SEAL DELIVERY VEHICLE OFFICER): Stable Cont protonix Essential hypertension 06/09/2018 Assessment & Plan (07/14/2024 11:59 AM SEAL DELIVERY VEHICLE OFFICER): Chronic, uncontrolled Not currently BP meds, has been in the past Under a lot of stress, pain Monitor BP at home and bring log back in 2 weeks. Assessment & Plan (07/29/2023 2:14 PM SEAL DELIVERY VEHICLE OFFICER): Chronic Cont amlodipine Goal: SBP<140, DBP<90 Assessment & Plan (11/18/2022 1:18 PM CDT): Uncontrolled BP improved in office with 1 dose of clonidine 0.1mg Start amlodipine 5mg daily and close monitoring of BP - allergy to lisinopril in the past. Assessment & Plan (09/12/2022 2:29 PM SEAL DELIVERY VEHICLE OFFICER): Stable Assessment & Plan (03/12/2022 7:12 PM CDT): No meds currently Will monitor at home and report back with readings Assessment & Plan (04/16/2021 2:23 PM CDT): Stable Assessment & Plan (09/16/2019 4:00 PM SEAL DELIVERY VEHICLE OFFICER): Stable without meds Dyslipidemia 06/09/2018 Assessment & Plan (11/11/2024 2:10 PM CDT): Issues obtaining Repatha despite insurance approval. Cholesterol monitoring needed. - Resend Repatha prescription to pharmacy. - Order cholesterol test Orders: Comprehensive metabolic panel; Future Lipid panel; Future Hemoglobin A1c; Future Albumin Creatinine Ratio, Urine; Future Vitamin D 25 hydroxy; Future evolocumab (Repatha SureClick) 140 mg/mL pen injector; Inject 1 mL (140 mg total) under the skin every 14 (fourteen) days Assessment & Plan (06/10/2024 9:05 AM CDT): Chronic, uncontrolled. Patient has been off her medication for an unknown amount of time. Intolerant of statins. Restart Repatha 140 mg every 2 weeks. Referral to cardiology Assessment & Plan (09/12/2022 2:29 PM SEAL DELIVERY VEHICLE OFFICER): Due for labs Seeing cardiology in the past Statin intolerant Assessment & Plan (08/19/2020 5:41 PM SEAL DELIVERY VEHICLE OFFICER): Uncontrolled Add fish oil Cont zetia Assessment & Plan (09/16/2019 3:59 PM SEAL DELIVERY VEHICLE OFFICER): Stable, no changes. Continue current regimen with statin Coronary artery disease invo lving tunica-biloxi coronary artery of tunica-biloxi heart without angina pectoris 06/09/2018 Assessment & Plan (11/11/2024 2:10 PM CDT): Chronic Following with cardiology Continue Repatha Orders: evolocumab (Repatha SureClick) 140 mg/mL pen injector; Inject 1 mL (140 mg total) under the skin every 14 (fourteen) days Assessment & Plan (06/10/2024 9:05 AM CDT): Chronic condition. Patient does not currently follow with cardiology. Referral placed Assessment & Plan (09/16/2019 3:58 PM SEAL DELIVERY VEHICLE OFFICER): On Plavix - h/o stenting and recent IN x 2 Tobacco abuse counseling 06/09/2018 Resolved Problems Problem Noted Date Diagnosed Date Resolved Date Need for vaccination 07/02/2023 024 COVID-19 06/25/2022 06/10/2024 Assessment & Plan (06/25/2022 10:37 AM CDT): Mild to moderate symptoms. Exposure about 4 days ago. Fever. Discussed Paxlovid. Advised to cut norco in half, half dose while taking. Discussed potential side effects, reactions, etc. Pt agrees to treatment. Obesity, Class I, BMI 30-34.9 05/15/2022 06/10/2024 Assessment & Plan (05/15/2022 9:29 PM CDT): Start mounjaro in place of victoza Acute lateral meniscus tear of right knee 05/08/2022 06/10/2024 Overview (05/08/2022): Added automatically from request for surgery [id number] Visit for suture removal 03/15/2022 Sprain of deltoid ligament of right ankle 02/05/2022 06/10/2024 Assessment & Plan (02/05/2022 5:31 PM CDT): It is my medical opinion that the patient sustained a sprain of the deltoid ligament in the right ankle when she slipped and fell on October 09, 2021. The treatment the form of activity modification, Cam boot immobilization and home-based exercises has been reasonable and necessary to cure and relieve her from the injury. It is my medical opinion the patient does not require additional treatment for sprain of the deltoid ligament in the right ankle. It is my medical opinion the patient has reached maximum medical improvement. Based on a reasonable degree of medical certainty, it is my medical opinion the patient sustained a permanent partial disability of 1% at the level of the right ankle as a result of the deltoid ligament sprain. The patient can return to work full duties without restrictions on the right ankle. Left ankle pain 12/25/2021 06/10/2024 Fracture of tibial plateau 11/22/2021 1 Assessment & Plan (02/05/2022 5:29 PM CDT): It is my medical opinion, based on a reasonable degree of medical certainty that the patient sustained a nondisplaced right lateral tibial plateau when she slipped and fell to the ground on October 09, 2021. The MRI performed on 11/14/2021 shows edema within the proximal tibial metaphysis with a nondisplaced vertically oriented lateral tibial plateau fracture. There is no evidence of articular incongruity. The treatment the patient received in the form of activity modification including nonweightbearing and bracing was reasonable and necessary to cure and relieve her from the injury. The patient had a repeat MRI performed on 01/17/2022. The images were available for review. The images show that the edema within the proximal tibia metaphysis had resolved. There was anatomic alignment of the articular cartilage without evidence of collateral or cruciate ligament tear. There was a small irregularity identified on the free edge of the midbody of the lateral meniscus. The medial meniscus was intact. Clinically there is no effusion. She has active knee range of motion 0-130. She has 5/5 strength with knee flexion extension. She does not have lateral joint line tenderness to palpation. She does have tenderness over the biceps femoris insertion onto the proximal fibula. Her physical exam is not consistent with lateral meniscal pathology. It is my medical opinion that the patient does not need any additional treatment to manage the nondisplaced right lateral tibial plateau fracture which has healed in anatomic alignment. There is no evidence of bone edema. There was no evidence of articular incongruity or displacement of the fracture on the serial radiographs performed. Repeat MRI shows no bony pathology. Based on a reasonable degree of medical certainty, it is my medical opinion the patient has reached maximum medical improvement. It is my medical opinion that she has sustained a permanent partial disability of 2% at the level of the right knee due to the nondisplaced lateral tibial plateau fracture that she sustained. It is my medical opinion the patient can return to work full duties without restrictions. Left foot pain 11/20/2021 06/10/2024 SBO (small bowel obstruction) 04/21/2021 06/10/2024 Acute pain of left shoulder 08/19/2020 03/15/2021 Assessment & Plan (09/26/2020 12:50 PM SEAL DELIVERY VEHICLE OFFICER): Opal [place] Seeing ortho Doing PT Assessment & Plan (08/19/2020 5:42 PM SEAL DELIVERY VEHICLE OFFICER): Worsening Unable to tolerate PT Refer to ortho Dizziness 01/19/2020 09/26/2020 Assessment & Plan (01/25/2020 1:40 PM CDT): Uncontrolled Order CT head Refer to ENT Bilateral wrist pain 12/28/2019 021 Assessment & Plan (12/28/2019 6:56 AM CDT): New and worsening Order xrays Order labs to r/o connective tissue d/o Take NSAID Gastroesophageal reflux dise ase without esophagitis 09/16/2019 02/05/2020 Assessment & Plan (09/16/2019 4:04 PM SEAL DELIVERY VEHICLE OFFICER): Xiao fundiplication in November 2018 - still with reflux type symptoms To try Protonix Likely contributing to her symptoms Fracture of phalanx of finger 09/12/2019 06/10/2024 Claudication 09/15/2018 09/16/2019 Seizure 09/14/2018 09/26/2020 Immunizations Immunization Administration Dates Next Due Influenza, Quadrivalent, Spl it, Intramuscular 06/18/2019,06/16/2019 Influenza, Quadrivalent, Spl it, Preservative Free, Intramuscular 07/02/2023,06/15/2021,06/06/2018 Influenza, Trivalent, Preser vative Free, Intramuscular 05/24/2024 Influenza, Unspecified 06/01/2022,2020,06/01/2020,06/30 Moderna SARS-CoV-2 Monovalen t Vaccination (12+ YRS) 03/05/2021,02/05/2021 PPD TEST 12/10/2019 Pneumococcal Conjugate Pcv20 05/24/2024 Pneumococcal Polysaccharide PPV23 06/18/2019 Social History Tobacco Use Types Packs/Day Years Used Date Smoking Tobacco: Every Day Cigarettes 0.5 40 Last attempted to quit: 12/12/1982 Smokeless Tobacco: Never Tobacco Cessation:Ready to Q uit: Not Asked; Counseling Given: Not Answered Comments:going to quit for surgery she stated 02/19/22 per the surgeon request [...] on file Legal Sex Female 9:12 PM SEAL DELIVERY VEHICLE OFFICER Gender Identity Female 03/20/2020 10:25 PM CDT Sexual Orientation Straight 03/20/2020 10 :25 PM CDT 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 Not on file Not on file Last Filed Vital Signs Vital Sign Reading Time Taken Comments Blood Pressure 140/80 10/13/2024 9:41 AM SEAL DELIVERY VEHICLE OFFICER Pulse 101 10/13/2024 9:41 AM SEAL DELIVERY VEHICLE OFFICER Temperature 36.5 C (97.7 F) 10/01/2024 9:20 AM SEAL DELIVERY VEHICLE OFFICER Respiratory Rate 20 10/13/2024 9:41 AM SEAL DELIVERY VEHICLE OFFICER Oxygen Saturation 98% 10/13/2024 9:41 AM SEAL DELIVERY VEHICLE OFFICER Inhaled Oxygen Concentration - - Weight 83.9 kg (185 lb) 10/13/2024 9:41 AM SEAL DELIVERY VEHICLE OFFICER Height 167.6 cm (5' 6 ) 11/11/2024 2:07 PM CDT Body Mass Index 29.86 10/13/2024 9:41 AM SEAL DELIVERY VEHICLE OFFICER Plan of Treatment Not on file Medical Devices Implanted Type Area Janitorial Assistant Device Identifier Shelf Expiration Date Model / Serial / Lot [place] Bilateral: Pelvis Screws Right: Ankle [place] Clip N/A: Bile Duct [employer] Internalbrace Fibertape Kit Arthroscopic Fixation Collagen Ar-1688-Cp - [id number] Implanted:Qty: 1 on 02/26/2022 by Lele Millan DO at [facility] Left: Ankle [employer] [id number] 12/30/2023 ARPAN-1688-C P / / [id number] [employer] Arthrex Dx Fibertak Needle Star [place]annery Suture Sterile Latex Free Ar-8990st - [id number] Implanted:Qty: 1 on 02/26/2022 by Lele Millan DO at [facility] Left: Ankle [employer] [id number] 10/29/2026 AR-8990ST / / [id number] [employer] Arthrex Dx Fibertak Needle Star Tannery Suture Sterile Latex Free Ar-8990st - [id number] Implanted:Qty: 1 on 02/26/2022 by Lele Millan DO at [facility] Left: Ankle [employer] [id number] 10/29/2026 AR-8990ST / / [id number] Davol Inc/C R Bard Bard Marlex [id number] Monofilament Gold Standard Flat Sheet [id number] - [id number] Implanted:Qty: 1 on 12/26/2022 by Lewis Gagnon DO at [facility] N/A: Abdomen [employer]ol Inc/C R Bard [id number] 01/26/2027 [id number] / / [id number] [employer]ol Inc/C R Bard Bard Marlex [id number] Monofilament Gold Standard Flat Sheet [id number] - [id number] Implanted:Qty: 1 on 06/11/2024 by Tirso Santos MD at [facility] N/A: Abdomen [employer]/C R Bard 05/29/2028 [id number] / / [id number] Explanted Type Area Janitorial Assistant Device Identifier Shelf Expiration Date Model / Serial / Lot Ethicon Endo Surgery Vicryl [id number] Knit Woven Mesh Surgical Vkml - [id number] Explanted:Qty: 1 on 12/26/2022 by Lewis Gagnon DO at [facility] N/A: Abdomen Ethicon Endo Surgery [id number] 02/28/2026 [id number] / / [id number] Procedures Procedure Name Priority Date/Time Associated Diagnosis Comments SCREENING MAMMOGRAM BILATERAL W BAY Schedule Routine, Read Routine (OP Routine) 11/09/2024 2:14 PM CDT Encounter for screening mammogram for malignant neoplasm of breast VITAMIN B1 Routine 10/13/2024 2:01 PM SEAL DELIVERY VEHICLE OFFICER TSH Routine 10/13/2024 10:30 AM SEAL DELIVERY VEHICLE OFFICER Paresthesia of skin T4, FREE Routine 10/13/2024 10:30 AM SEAL DELIVERY VEHICLE OFFICER Paresthesia of skin DAVID QUALITATIVE WITH REFLEX TO DAVID QUANTITATIVE Routine 10/13/2024 10:30 AM SEAL DELIVERY VEHICLE OFFICER Paresthesia of skin ERYTHROCYTE SEDIMENTATION RATE Routine 10/13/2024 10:30 AM SEAL DELIVERY VEHICLE OFFICER Paresthesia of skin VITAMIN B12 Routine 10/13/2024 10:30 AM SEAL DELIVERY VEHICLE OFFICER Paresthesia of skin VALPROIC ACID LEVEL, TOTAL Routine 10/13/2024 10:30 AM SEAL DELIVERY VEHICLE OFFICER Medication monitoring encounter MRI BRAIN W WO CONTRAST Schedule Routine, Read Routine (OP Routine) 10/07/2024 12:48 PM SEAL DELIVERY VEHICLE OFFICER Dizziness Paresthesias Persistent headaches MRI THORACIC SPINE WO CONTRAST Schedule Routine, Read Routine (OP Routine) 10/07/2024 12:15 PM SEAL DELIVERY VEHICLE OFFICER Chronic bilateral thoracic back pain EGFR Routine 07/24/2024 9:07 AM SEAL DELIVERY VEHICLE OFFICER HM DIABETES EYE EXAM Routine 07/19/2024 HEMOGLOBIN A1C Routine 06/09/2024 12:33 PM CDT Preop testing LIPID PANEL Routine 10/29/2023 9:06 AM SEAL DELIVERY VEHICLE OFFICER Essential hypertension Type 2 diabetes mellitus without complication, without long-term current use of insulin (HCC) ALBUMIN CREATININE RATIO, URINE Routine 10/29/2023 9:06 AM SEAL DELIVERY VEHICLE OFFICER Type 2 diabetes mellitus without complication, without long-term current use of insulin (HCC) COLONOSCOPY Routine 01/04/2022 from Last 3 Months or Most Recently Relevant to Health Maintenance Results * Screening Mammogram Bilateral [place] Bay (11/09/2024 2:14 PM CDT) Anatomical Region Laterality Modality Breast Bilateral Mammography Impressions 11/09/2024 2:21 PM CDT BI-RADS ATLAS category (overall): 1 - Negative There is no mammographic evidence of malignancy. A 1 year screening mammogram is recommended. The patient has been or will be contacted. We recommend annual screening mammography for women at average risk of breast cancer beginning at age 40, based on guidelines of the [employer] (ACR Practice Parameter for the Performance of Screening and Diagnostic Mammography) and [employer]. For women with and elevated risk of breast cancer, please refer to the ACR Practice Parameter for specific screening recommendations. The patient will be entered into a reminder system with a target due date of 1 year for her next screening exam. Narrative 11/09/2024 2:21 PM CDT Screening Mammogram Bilateral W Bay: 11/09/24 The study was acquired using full field digital technology and interpreted from soft copy. 2D digital mammographic views, as well as 3D digital tomosynthesis were performed in the CC and MLO projections. CLINICAL: Encounter for screening mammogram for malignant neoplasm of breast. No relevant medical history has been documented for this patient. History of breast cancer in Maternal Grandmother, Mother's Sister. COMPARISONS: 05/26/2023 Screening Mammogram Bilateral W Bay 08/18/2020 US Breast Left Limited 08/18/2020 Diagnostic Mammogram Left W Bay 02/21/2020 Screening Mammogram Bilateral W Bay BREAST TISSUE: The breasts are almost entirely fatty. FINDINGS: No suspicious masses, suspicious calcifications, or other suspicious findings are seen within either breast. There has been no suspicious change. Patricia MALAVE IM MAMMO PROCEDURES Fin al Result * Vitamin B1 (10/13/2024 2:01 PM SEAL DELIVERY VEHICLE OFFICER) Thiamine (Vit B1) 108 70 - 180 nmol/L [place] ref Lab Comment: ADDITIONAL INFORMATION This test was developed and its performance characteristics determined by [facility] in a manner consistent with CLIA requirements. This test has not been cleared or approved by the U.S. Food and Drug Administration. Test Performed by: [facility] - [address] [address] [employer]: Nisha Michelle Ph.D.; CLIA# [id number] Blood 10/13/2024 2:01 PM SEAL DELIVERY VEHICLE OFFICER 10/13/2024 4:10 PM SEAL DELIVERY VEHICLE OFFICER us Sarah Rodriguez HAZARDOUS MATERIAL TECHNICIAN LAB BLOOD ORDERABLES Final Result Performing Organization Address [facility] Co de Phone Number [facility] [place] [address] Ramirez ref Lab * DAVID ab ql w/rflx to DAVID qn (10/13/2024 10:30 AM SEAL DELIVERY VEHICLE OFFICER) DAVID Negative Comment: Interpretive Data Normal range for DAVID Qualitative Antibody = Negative. 1. DAVID is performed using indirect immunofluorescence against HEp-2 cells 2. DAVID titers are performed on all positive qualitative results. 3. A significantly positive DAVID result is defined as a positive nuclear fluorescence at a titer of 1:80 or greater. 4. 15% of normal people above age 65 have significantly positive DAVID results. 5% or less of normal people age 65 or under have significantly positive DAVID results. Current interpretive data was last revised on 2020. Testing performed by: [facility], [address] [facility], [place]., [address] Blood 10/13/2024 10:3 0 AM SEAL DELIVERY VEHICLE OFFICER 10/13/2024 3:00 PM SEAL DELIVERY VEHICLE OFFICER Sarah Rodriguez HAZARDOUS MATERIAL TECHNICIAN LAB BLOOD ORDERABLES Final Result Performing Organization Address [facility] de Phone Number [facility] [place] [address] * Erythrocyte sedimentation rate (10/13/2024 10:30 AM SEAL DELIVERY VEHICLE OFFICER) Erythrocyte sedimentation rate 24 1 - 30 mm/hr Blood 10/13/2024 10:3 0 AM SEAL DELIVERY VEHICLE OFFICER 10/13/2024 12:18 PM SEAL DELIVERY VEHICLE OFFICER Sarah Rodriguez HAZARDOUS MATERIAL TECHNICIAN LAB BLOOD ORDERABLES Final Result Performing Organization Address City/[facility] Co de Phone Number [address] [address] * TSH (10/13/2024 10:30 AM SEAL DELIVERY VEHICLE OFFICER) Pathologist [facility] Thyroid Stimulating Hormone 1.00 0.30 - 4.20 mcIUnit/mL Blood 10/13/2024 10:3 0 AM SEAL DELIVERY VEHICLE OFFICER 10/13/2024 12:16 PM SEAL DELIVERY VEHICLE OFFICER Sarah Rodriguez HAZARDOUS MATERIAL TECHNICIAN LAB BLOOD ORDERABLES Final Result Performing Organization Address [facility] Co de Phone Number [address] [address] * T4, free (10/13/2024 10:30 AM SEAL DELIVERY VEHICLE OFFICER) Pathologist [facility] Free T4 1.33 0.90 - 1.70 ng/dL Blood 10/13/2024 10:3 0 AM SEAL DELIVERY VEHICLE OFFICER 10/13/2024 12:16 PM SEAL DELIVERY VEHICLE OFFICER Sarah Rodriguez HAZARDOUS MATERIAL TECHNICIAN LAB BLOOD ORDERABLES Final Result Performing Organization Address [facility] Co de Phone Number [address] [place] [address] * Vitamin B12 (10/13/2024 10:30 AM SEAL DELIVERY VEHICLE OFFICER) [facility] Vitamin B12 556 230 - 1,250 pg/mL Blood 10/13/2024 10:3 0 AM SEAL DELIVERY VEHICLE OFFICER 10/13/2024 12:16 PM SEAL DELIVERY VEHICLE OFFICER Sarah Rodriguez HAZARDOUS MATERIAL TECHNICIAN LAB BLOOD ORDERABLES Final Result Performing Organization Address [facility] Co de Phone Number [address] [address] * (ABNORMAL) Valproic acid level, total (10/13/2024 10:30 AM SEAL DELIVERY VEHICLE OFFICER) [facility] Valproic Acid 41.3(L) 50.0 - 100.0 mcg/mL Blood 10/13/2024 10:3 0 AM SEAL DELIVERY VEHICLE OFFICER 10/13/2024 12:16 PM SEAL DELIVERY VEHICLE OFFICER us Sarah Rodriguez HAZARDOUS MATERIAL TECHNICIAN LAB BLOOD ORDERABLES Final Result [facility] [address] [facility] Department [place] [address] * MRI Brain W WO Contrast (10/07/2024 12:48 PM SEAL DELIVERY VEHICLE OFFICER) Anatomical Region Laterality Modality Head and Neck N/A Magnetic Resonan ce 10/07/2024 12:5 9 PM SEAL DELIVERY VEHICLE OFFICER Narrative 10/07/2024 1:18 PM SEAL DELIVERY VEHICLE OFFICER EXAM DESCRIPTION: MRI BRAIN W WO CONTRAST REASON FOR STUDY: concerns for MS Having some dizziness and weakness. DR checking for multiple sclerosis. PT states she has tested positive for lupus TECHNIQUE: Multiplanar imaging includes noncontrast T1, T2, FLAIR, diffusion with ADC map and post contrast T1 sequences. Additional sequence(s) sensitive to blood products. Images stored on PACS. CONTRAST TYPE/DOSE: 15mL of GADOTERATE MEGLUMINE 0.5 MMOL/ML INTRAVENOUS SOLUTION (SO) injected via intravenous COMPARISON: No prior brain MRI is available for comparison at time of this dictation. FINDINGS: No acute infarction. No evidence of acute or chronic hemorrhage identified. No mass effect, mass or midline shift. There are multiple small supratentorial T2/FLAIR hyperintense foci within the periventricular and subcortical white matter. A few FLAIR hyperintense foci are identified within the bilateral external capsule. These foci do not demonstrate corresponding T1 hypointensity or enhancement. No restricted diffusion is identified. No Mackey's fingers are identified. The white matter hyperintense foci are primarily located within the bilateral frontal lobes. No infratentorial white matter hyperintensity is identified. The ventricles are normal in size. Brain volume appears within normal limits for patient age. The major flow voids are within normal limits. The pituitary gland is within normal limits for patient age. Hyperostosis frontalis interna is noted. Otherwise the calvarium is unremarkable. The orbits are unremarkable. The paranasal sinuses are well aerated. The mastoid air cells are well aerated. IMPRESSION: Multiple small supratentorial T2/FLAIR hyperintense foci within the periventricular and subcortical white matter. No corresponding T1 hypointensity or enhancement. This is a nonspecific finding that could represent chronic small vessel ischemic disease, lupus related white matter disease given the provided clinical history, or possibly demyelination in the appropriate clinical setting. THIS IS AN ELECTRONICALLY VERIFIED FINAL REPORT 10/07/2024 1:18 PM - Electronically signed by Chris Ferrera M.D. T: Report ID: [id number] Reading Location: [id number] Procedure Note Chris Ferrera MD - 10/07/2024 EXAM DESCRIPTION: MRI BRAIN W WO CONTRAST REASON FOR STUDY: concerns for MS Having some dizziness and weakness. DR checking for multiple sclerosis. PT states she has tested positive for lupus TECHNIQUE: Multiplanar imaging includes noncontrast T1, T2, FLAIR,diffusion with ADC map and post contrast T1 sequences. Additional sequence(s)sensitive to blood products. Images stored on PACS. CONTRAST TYPE/DOSE: 15mL of GADOTERATE MEGLUMINE 0.5 MMOL/ML INTRAVENOUS SOLUTION (SO) injected via intravenous COMPARISON: No prior brain MRI is available for comparison at time of this dictation. FINDINGS: No acute infarction. No evidence of acute or chronic hemorrhageidentified. No mass effect, mass or midline shift. There are multiple small supratentorial T2/FLAIR hyperintense foci withinthe periventricular and subcortical white matter. A few FLAIR hyperintensefoci are identified within the bilateral external capsule. These foci do not demonstrate corresponding T1 hypointensity or enhancement. No restricted diffusion is identified. No Mackey's fingers are identified. The white matter hyperintense foci are primarily located within the bilateralfrontal lobes. No infratentorial white matter hyperintensity is identified. The ventricles are normal in size. Brain volume appears within normallimits for patient age. The major flow voids are within normal limits. The pituitary gland is within normal limits for patient age. Hyperostosis frontalis interna is noted. Otherwise the calvarium is unremarkable. The orbits are unremarkable. The paranasal sinuses arewell aerated. The mastoid air cells are well aerated. IMPRESSION: Multiple small supratentorial T2/FLAIR hyperintense fociwithin the periventricular and subcortical white matter. No corresponding T1 hypointensity or enhancement. This is a nonspecific finding that could represent chronic small vessel ischemic disease, lupus related whitematter disease given the provided clinical history, or possibly demyelination inthe appropriate clinical setting. THIS IS AN ELECTRONICALLY VERIFIED FINAL REPORT 10/07/2024 1:18 PM - Electronically signed by Chris Ferrera M.D. MM T: Report ID: [id number] Reading Location: [id number] us Patricia MALAVE IMG MRI PROCEDURES Final Result * MRI Thoracic Spine WO Contrast (10/07/2024 12:15 PM SEAL DELIVERY VEHICLE OFFICER) Anatomical Region Laterality Modality Spine N/A Magnetic Resonan ce 10/07/2024 12:2 9 PM SEAL DELIVERY VEHICLE OFFICER Narrative 10/07/2024 12:45 PM SEAL DELIVERY VEHICLE OFFICER EXAM DESCRIPTION: MRI THORACIC SPINE WO CONTRAST REASON FOR STUDY: Mid-back pain TECHNIQUE: Sagittal and Axial imaging includes T1, T2, STIR and gradient echo sequences. COMPARISON: Thoracic spine radiographs dated 11/21/2022 FINDINGS: ALIGNMENT: There is mildly exaggerated thoracic kyphosis due to the height loss in the midthoracic spine. No listhesis is identified. VERTEBRAE: There is mild height loss of the T4, T5, T6 and T7 vertebral bodies which are most likely due to Schmorl's nodes at these levels. Otherwise the vertebral body heights are normal. No acute or subacute fracture signal is identified. No aggressive bone marrow replacement process is identified. CORD: Normal in size and signal intensity. DISCS: There is up to mild disc space height loss most pronounced at T7-T8. Multilevel disc desiccation throughout the thoracic spine. INDIVIDUAL LEVELS : T6-T7: Small central disc protrusion. Mild facet arthropathy. Mild spinal canal stenosis. No significant neural foraminal stenosis. T7-T8: Small disc bulge with superimposed small right subarticular protrusion. Mild facet arthropathy. Mild spinal canal stenosis. Mild right neural foraminal stenosis. SOFT TISSUES: No significant abnormality. LOWER CERVICAL: Incompletely imaged. No significant spinal stenosis or neuroforaminal stenosis. UPPER LUMBAR: Incompletely imaged. No significant spinal or neuroforaminal stenosis. OTHER: No other significant abnormality. IMPRESSION: Small disc protrusions at T6-T7 and T7-T8 resulting in up to mild spinal canal stenosis and right neural foraminal stenosis. Mild height loss of the T4, T5, T6 and T7 superior endplates which are most likely due to Schmorl's nodes at these levels. THIS IS AN ELECTRONICALLY VERIFIED FINAL REPORT 10/07/2024 12:45 PM - Electronically signed by Chris Ferrera M.D. MM T: Report ID: [id number] Reading Location: [place] [address] Procedure Note Chris Ferrera MD - 10/07/2024 EXAM DESCRIPTION: MRI THORACIC SPINE WO CONTRAST REASON FOR STUDY: Mid-back pain TECHNIQUE: Sagittal and Axial imaging includes T1, T2, STIR and gradientecho sequences. COMPARISON: Thoracic spine radiographs dated 11/21/2022 FINDINGS: ALIGNMENT: There is mildly exaggerated thoracic kyphosis dueto the height loss in the midthoracic spine. No listhesis is identified. VERTEBRAE: There is mild height loss of the T4, T5, T6 and T7 vertebral bodies which are most likely due to Schmorl's nodes at these levels. Otherwise the vertebral body heights are normal. No acute or subacute fracture signal is identified. No aggressive bone marrow replacementprocess is identified. CORD: Normal in size and signal intensity. DISCS: There is up to mild disc space height loss most pronounced atT7-T8. Multilevel disc desiccation throughout the thoracic spine. INDIVIDUAL LEVELS : T6-T7: Small central disc protrusion. Mild facet arthropathy. Mildspinal canal stenosis. No significant neural foraminal stenosis. T7-T8: Small disc bulge with superimposed small right subarticularprotrusion. Mild facet arthropathy. Mild spinal canal stenosis. Mild right neural foraminal stenosis. SOFT TISSUES: No significant abnormality. LOWER CERVICAL: Incompletely imaged. No significant spinal stenosis or neuroforaminal stenosis. UPPER LUMBAR: Incompletely imaged. No significant spinal orneuroforaminal stenosis. OTHER: No other significant abnormality. IMPRESSION: Small disc protrusions at T6-T7 and T7-T8 resulting in up to mild spinal canal stenosis and right neural foraminal stenosis. Mild height loss of the T4, T5, T6 and T7 superior endplates which aremost likely due to Schmorl's nodes at these levels. THIS IS AN ELECTRONICALLY VERIFIED FINAL REPORT 10/07/2024 12:45 PM - Electronically signed by Chris Ferrera M.D. MM T: Report ID: [id number] Reading Location: [place] [address] us Patricia MALAVE IMG MRI PROCEDURES Final Result * eGFR (07/24/2024 9:07 AM SEAL DELIVERY VEHICLE OFFICER) eGFR >90 >=60 mL/min/1. 73 m2 Comment: Interpretive Data Reference Interval Normal >/= 90 mL/min/1.73m2 Mildly decreased* 60 - 89 mL/min/1.73m2 Mildly to moderately decreased 45 - 59 mL/min/1.73m2 Moderately to severely decreased 30 - 44 mL/min/1.73m2 Severely decreased 15 - 29 mL/min/1.73m2 Kidney Failure < 15 mL/min/1.73m2 *Relative to young adult level Estimated glomerular filtration rate is determined by the 2020 CKD-EPI equation recommended by the National Kidney Foundation (A Unifying Approach to GFR Estimation: Recommendations of the NKF-ASK Task Force on Reassessing the Inclusion of Race in Diagnosing Kidney Disease, JASN 2020). The CKD-EPI equation should not be used for patients with unstable renal function and has not been validated in children and those over 70. Current interpretive data was last reviewed 2021. Blood 07/24/2024 9:07 AM SEAL DELIVERY VEHICLE OFFICER 07/24/2024 9:11 AM SEAL DELIVERY VEHICLE OFFICER Tirso Santos MD LAB BLOOD ORDERABLE S Final Result [facility] [address] Department [place] [address] * HM DIABETES EYE EXAM (07/19/2024) SCRIBED DIABETIC DILATED EYE EXAM Normal Historical Provider HEALTH MAINTENANCE Final Result * (ABNORMAL) Hemoglobin A1c (06/09/2024 12:33 PM CDT) Hgb A1C 5.7(H) 4.0 - 5.6 % Estimated Average Glucose 117 mg/dL [facility] Comment: The ADA recommends reporting an estimated Average Glucose (eAG) with all Hemoglobin A1c results using the equation derived from a study of 507 normal and diabetic adults. Minority populations were underrepresented and children were not included. (Diabetes Care 31:8612-7052, 2008). The eAG is not equivalent to a fasting glucose. Blood 06/09/2024 12:3 3 PM CDT 06/09/2024 12:33 PM CDT Jasmina Jung NP LAB BLOOD ORDERABLES Final Result [facility] [address] [place] [address] * (ABNORMAL) Albumin Creatinine Ratio, Urine (10/29/2023 9:06 AM SEAL DELIVERY VEHICLE OFFICER) [facility] Albumin Ur 30.8 mg/L [facility] Comment: Interpretive Data No reference range established. Current interpretive data was last revised 2019. Testing performed by: [address] [address] Creatinine Ur 98.4 mg/dL [facility] Comment: Interpretive Data No reference range established. Current interpretive data was last revised 2019. Testing performed by: [address] [address] Albumin Creatinine Ratio, Ur 31(H) 1 - 29 mg/g [facility] Comment:Testing performed by : [address] [address] Urine 10/29/2023 9:06 AM SEAL DELIVERY VEHICLE OFFICER 10/29/2023 9:17 AM SEAL DELIVERY VEHICLE OFFICER Vesna Parry MD LAB URINE ORDERABLES Nicole kinsey Result [facility] [address] [facility] Department [place] [address] * (ABNORMAL) Lipid panel (10/29/2023 9:06 AM SEAL DELIVERY VEHICLE OFFICER) Cholesterol 219(H) 30 - 199 mg/dL [facility] Comment: Interpretive Data Ages < or = 19 years Acceptable: <170 mg/dL Borderline high: 170-199 mg/dL High: >or= 200 mg/dL Ages > or = 20 years Desirable: <200 mg/dL Borderline high: 200-239 mg/dL High: >or= 240 mg/dL Literature References: 1. Expert Panel on Integrated Guidelines for Cardiovascular Health and Risk Reduction in Children and Adolescents. Pediatrics 2011;128:S213 2. NCEP Expert Panel. Circulation 2004;110:227 Current Interpretive Data was last revised on 2018. Testing performed by: [address] [address] Triglycerides 158(H) <=149 mg/dL [facility] Comment: Interpretive Data Ages < or = 9 years Acceptable: <75 mg/dL Borderline high: 75-99 mg/dL High: >or= 100 mg/dL Ages 10 to 20 years Acceptable: <90 mg/dL Borderline high: 90-129 mg/dL High: >or= 130 mg/dL Ages > or = 20 years Desirable: <150 mg/dL Borderline high: 150-199 mg/dL High: 200-499 mg/dL Very high: >or= 499 mg/dL Literature References: 1. Expert Panel on Integrated Guidelines for Cardiovascular Health and Risk Reduction in Children and Adolescents. Pediatrics 2011;128:S213 2. NCEP Expert Panel. Circulation 2004;110:227 Current Interpretive Data was last revised on 2018. Testing performed by: [address] [address] HDL 37(L) >=40 mg/dL [facility] Comment: Interpretive Data Ages < or = 19 years Acceptable: >45 mg/dL Borderline low: 40-45 mg/dL Low: <40 mg/dL Ages > or = 20 years Desirable: >or= 60 mg/dL Low: <40 mg/dL Literature References: 1. Expert Panel on Integrated Guidelines for Cardiovascular Health and Risk Reduction in Children and Adolescents. Pediatrics 2011;128:S213 2. NCEP Expert Panel. Circulation 2004;110:227 Current Interpretive Data was last revised on 2018. Testing performed by: [address] [address] LDL, calculated 150(H) <=129 mg/dL [facility] Comment: Interpretive Data Ages < or = 19 years Acceptable: <110 mg/dL Borderline high: 110-129 mg/dL High: >or= 130 mg/dL Ages > or = 20 years Optimal: <100 mg/dL Near optimal: 100-129 mg/dL Borderline high: 130-159 mg/dL High: >160 mg/dL Literature References: 1. Expert Panel on Integrated Guidelines for Cardiovascular Health and Risk Reduction in Children and Adolescents. Pediatrics 2011;128:S213 2. NCEP Expert Panel. Circulation 2004;110:227 Current Interpretive Data was last revised on 2018. Testing performed by: [address] [address] Non-HDL Cholesterol 182 mg/dL [facility] Comment: Interpretive Data Ages < or = 19 years Acceptable: <120 mg/dL Borderline high: 120-144 mg/dL High: >145 mg/dL Ages > or = 20 years When triglycerides are >200 mg/dL, Non-HDL cholesterol is a secondary target of therapy with treatment goals that are 30 mg/dL greater than the LDL cholesterol target. Literature References: 1. Expert Panel on Integrated Guidelines for Cardiovascular Health and Risk Reduction in Children and Adolescents. Pediatrics 2011;128:S213 2. NCEP Expert Panel. Circulation 2004;110:227 Current Interpretive Data was last revised on 2018. Testing performed by: [address] [address] Chol/HDL ratio 6 [facility] Comment:Testing performed by : [address] [address] Blood 10/29/2023 9:06 AM SEAL DELIVERY VEHICLE OFFICER 10/29/2023 9:38 AM SEAL DELIVERY VEHICLE OFFICER Vesna Parry MD LAB BLOOD ORDERABLES Nicole euceda Result [facility] [address] [facility] [place] [address] * Colonoscopy (01/04/2022) Anatomical Region Laterality Modality Other Impressions 01/04/2022 Results available in Care Everywhere us Historical Provider ENDOSCOPY PROCEDURES Nicole euceda Result from Last 3 Months or Most Recently Relevant to Health Maintenance Insurance IDPA [facility] CHOICE [facility] H[facility]/PPO Address: [address] [address] [place] [address] [employer]PA WORK[employer] COMPENSATION GENERIC WORKERS COMPENSATION GENERIC WORKERS COMPENSATION GENERIC WORKERS COMPENSATION GENERIC WORKERS COMPENSATION GENERIC WORKERS COMPENSATION GENERIC WORKERS COMPENSATION GENERIC WORKERS COMPENSATION GENERIC WORKERS COMPENSATION GENERIC COMPENSATION IDPA IDPA Advance Directives For more information, please contact: [phone] * Full Code (Latest Code Status on File) Date Activated Date Inactivated Comments 07/24/2024 5:32 PM 07/25/2024 1:12 PM * Full Code Date Activated Date Inactivated Comments 06/11/2024 12:12 PM 06/12/2024 4:45 PM * Full Code Date Activated Date Inactivated Comments 12/26/2022 3:16 PM 12/28/2022 7:04 PM * Full Code Date Activated Date Inactivated Comments 03/06/2020 10:28 AM 03/06/2020 5:45 PM Care Teams Clothes Presser Relationship Specialty Start Date End Date Patricia Nichols PA [address] [facility] [address] [place] [address] PCP - General Family Medicine 06/09/24 Lele Millan DO [address] [place] [address] [place] [id number] Consulting Physician Orthopedic Surgery 02/26/22
--- OUTSIDE RECORDS SUMMARY | 2024-12-02 13:50 | XMS_ITS | Clinical Summary ---
Author Organization [facility] Address [address] [place] [address] Care Team Providers Care Charging Operator Name Role Phone Garcia Bennett MD Unavailable [phone] Milly Cordoba MD Primary Care Provider [phone] Allergies Active Allergy Reactions Criticality Noted Date Comments Amoxicillin Rash Low 06/27/2020 Ampicillin Rash Medium 06/27/2020 Bupropion Swelling,Shortness o f Breath High 11/24/2014 Colesevelam Anaphylaxis High 06/27/2020 Dapagliflozin Other (see comment) Low 03/15/2021 Headache Famotidine Itching Low 01/21/2020 Iodine Throat swelling High 09/08/2024 States throat closes/can't breathe and chest pain Metformin GI Upset Low 03/15/2021 Penicillins Rash Low 10/30/2017 Fluoxetine Other (see comment) 02/03/2018 mean and suicidal Quetiapine Swelling,Shortness o f Breath High 10/30/2017 Rosuvastatin Fatigue Low 12/28/2019 Sertraline Other (see comment) Medium 03/03/2018 aggressive Mood swings Sulfa Antibiotics Swelling,Rash Medium 11/24/2014 Tramadol Other (see comment) High 12/15/2018 feel weird Other reaction(s): Suicidal Ideation Medications hydrocodone-ava taminophen 5-325 MG tabletIndicatio ns:Chronic Pain Take 1 tablet by mouth every 6 (six) hours as needed for Pain. Indications: Chronic Pain Active nitroglycerin 0.[address] 1 tablet (0.4 mg total) under the tongue every 5 (five) minutes as needed for Chest Pain (Max 3 doses.). 25 tablet 02/09/2020 Active aspirin EC 81 MG tablet Take 81 mg by mouth daily. Active divalproex EC 500 MG tablet Take 500 mg by mouth 2 (two) times daily. Active liraglutide 18 MG/3ML injection Inject 1.2 mg into the skin daily. Active omeprazole 40 MG capsule TAKE ONE CAPSULE BY MOUTH DAILY 30 MINUTES BEFORE MEAL 01/01/2022 Active Blood Glucose Monitoring Suppl ([employer] VERIO REFLECT) w/Device Kit USE TO TEST BLOOD GLUCOSE DAILY DIRECTED 04/11/2021 Active [employer] VERIO test strip USE TO TEST BLOOD SUGAR ONCE DAILY DIRECTED 06/26/2021 Active B-D ULTRAFINE III SHORT PEN 31G X 8 MM Misc USE TO INJECT 1 TIME DAILY DIRECTED. 05/19/2021 Active Active Problems Problem Noted Date Diagnosed Date SBO (small bowel obstruction) ([facility]) 04/21/2021 Coronary stent patent 04/21/2021 Depression 04/21/2021 Gastroesophageal reflux disease with esophagitis 04/21/2021 History of adenomatous polyp of colon 04/21/2021 Hyperlipidemia 04/21/2021 Panic disorder 04/21/2021 History of fundoplication 02/28/2020 Overview (04/21/2021): Added automatically from request for surgery [id number] Added automatically from request for surgery [id number] PRAKASH (obstructive sleep apnea) 12/13/2019 Overview (04/21/2021): Last Assessment & Plan: Uncontrolled possible Order referral to sleep center Last Assessment & Plan: Uncontrolled possible Order referral to sleep center Atherosclerosis 10/25/2019 Epilepsy ([facility]) 10/16/2019 Overview (04/21/2021): Last Assessment & Plan: Stable Anxiety 09/16/2019 Overview (04/21/2021): Last Assessment & Plan: Try Buspar Meds failed prior: Lexapro, Celexa, Zoloft, diazepam Last Assessment & Plan: Try Buspar Meds failed prior: Lexapro, Celexa, Zoloft, diazepam Vitamin D deficiency 09/16/2019 Overview (04/21/2021): Last Assessment & Plan: Repeat levels Last Assessment & Plan: Stable Naturally controlled Chest pain 09/06/2019 Diabetes mellitus ([facility]) 06/15/2019 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 Claudication 09/15/2018 Coronary artery disease invo lving ramona coronary artery of ramona heart without angina pectoris 06/09/2018 Essential hypertension 06/09/2018 Dyslipidemia 06/09/2018 Shortness of breath 06/09/2018 Tobacco abuse counseling 06/09/2018 PA (myocardial infarction) ([facility]) Overview (02/03/2018): TIMES 2 Encounters Date Type Department Care Team Description 09/08/2024 12:56 PM [facility] - 09/08/2024 5:32 PM [facility] Emergency [facility] [place] [address] Consuelo Mead, TARIQ Wound Discharge Disposition: Home or Self Care (Routine Discharge) 09/08/2024 Travel from Last 3 Months Family History Medical History Relation Comments Diabetes Father Hypertension Father Breast Cancer Maternal Aunt Asthma Mother Heart Attack Paternal Grandfather Stroke Paternal Grandfather Open Heart Paternal Grandmother Diabetes Sister Relation Status Comments Father Alive Maternal Aunt Mother Alive Paternal Grandfather Paternal Grandmother Sister Alive Social History Tobacco Use Types Packs/Day [...] on file Legal Sex Female 8:39 PM [facility] Gender Identity Female 01/02/2022 11:38 AM CDT Sexual Orientation Straight 01/02/2022 11 :38 AM CDT Last Filed Vital Signs Vital Sign Reading Time Taken Comments Blood Pressure 155/94 09/08/2024 5:07 PM [facility] Pulse 73 09/08/2024 5:07 PM [facility] Temperature 36.4 C (97.6 F) 09/08/2024 12:28 PM [facility] Respiratory Rate 17 09/08/2024 5:07 PM [facility] Oxygen Saturation 99% 09/08/2024 5:07 PM [facility] Inhaled Oxygen Concentration - - Weight 89.4 kg (197 lb) 09/08/2024 12:28 PM [facility] Height 167.6 cm (5' 6 ) 09/08/2024 12:28 PM [facility] Body Mass Index 31.8 09/08/2024 12:28 PM [facility] Plan of Treatment Health Maintenance Due Date Last Done Comments Kidney Health Evaluation 1972 Annual Physical 1975 Diabetes: Retinopathy Eye Exam 1990 Hepatitis C 1990 DTaP, Tdap and Td Vaccines (1 - Tdap) 1991 Hepatitis B Vaccines (1 of 3 - 19+ 3-dose series) 1991 ASCVD LDL 09/07/2020 09/07/2019, 05/2019, 02/25/2018 Zoster Vaccines (1 of 2) 2022 COVID-19 Vaccine (4 - season) 2024 09/05/2021, 03/05/2021, 02/05/2021 Hemoglobin A1C 12/08/2024 06/09/2024, 01/2024, 10/29/2023, Additional history exists Lipid Panel 02/04/2025 02/05/2024, 09/02, 02/15/2021, Additional history exists Mammogram Screening 05/26/2025 05/26/2023, 08/18/2020, 02/21/2020, Additional history exists Colorectal Cancer Screening Colonoscopy (10 Years) 01/05/2032 01/04/2022, 10/01/2018 Pneumococcal Vaccine: Pediatrics (0 to 5 Years) and At-Risk Patients (6 to 64 Years) Completed 05/24/2024, 06/18/2019 Meningococcal B Vaccine Aged Out No l onger eligible based on patient's age to complete this topic Meningococcal Vaccine Aged Out No destinee kim eligible based on patient's age to complete this topic RSV Immunizations Under 20 Months Aged Out No longer eligible based on patient's age to complete this topic Goals Goal Patient Goal Type Associated Problems Recent Progress Patient-Stated? Author Safety Patient/family will have appropriate support at home upon discharge General No Fouzia Salazar RN Medical Devices Implanted Type Area Assistant Service Manager Device Identifier Shelf Expiration Date Model / Serial / Lot Ankle Description:Plates/screws Pelvis Description:[employer]-guru in pel vis Procedures Procedure Name Priority Date/Time Associated Diagnosis Comments CT ABD+PEL WO CON STAT 09/08/2024 4:2 6 PM [facility] CULTURE, WOUND, W/GRAM STAIN STAT 09/08/2024 1:11 PM [facility] LACTIC ACID W REFLEX (SEPSIS) STAT 09/08/2024 1:08 PM [facility] COMPREHENSIVE METABOLIC PANEL STAT 09/08/2024 1:08 PM [facility] CBC W/DIFF AUTOMATED STAT 09/08/2024 1:08 PM [facility] LIPID PANEL Routine 09/07/2019 2:41 AM [facility] HEMOGLOBIN, GLYCOSYLATED Routine 09/07/2019 2:41 AM [facility] MG SCREENING W YARED SANJU DIGI Routine 03/22/2019 1:16 PM CDT Screening breast examination COLONOSCOPY Routine 10/01/2018 10:24 AM [facility] from Last 3 Months or Most Recently Relevant to Health Maintenance Results * CT ABD+PEL WO CON (09/08/2024 4:26 PM [facility]) Anatomical Region Laterality Modality Abdomen Computed Tomogra phy 09/08/2024 4:45 PM [facility] Impressions 09/08/2024 4:56 PM [facility] IMPRESSION: 1. Changes of prior midline abdominal wall probably umbilical hernia repair; skin thickening and surface irregularity overlying the midline vertical subcutaneous defect which may represent scarring and or blistering. No discrete deep ulceration soft tissue collection identified within study limits. 2. No acute intra-abdominal pelvic process within noncontrast CT limits 3. Enlarged fatty liver. 4. L4-5 disc herniation. 5. Other nonemergent, incidental, stable and potential chronic findings as discussed in the report body above. Ordered By: SUSHMA SHIELDS Interpreted By: Preston Stallworth MD, 09/08/2024 4:45 PM Narrative 09/08/2024 4:56 PM [facility] [address] [address] Exam: CT abdomen without contrast Exam Date/Time: 09/08/2024 2:53 PM Indication: 53 female. Complaint drainage from wound and abdomen following hernia repair with mesh in June 2024, revised July at outside institution. Comparison: CT abdomen pelvis 04/21/2021. No other recent prior is Technique: Computed tomography of the abdomen was performed without contrast. A dose lowering technique was used for this procedure, which may include, but is not limited to, dose reduction technique, automated exposure control, the use of iterative reconstruction, and ALARA (As Low As Reasonably Achievable) / Image Gently techniques. CT findings: LOWER CHEST Normal cardiac size. Right coronary artery disease and possible stent. No pericardial or pleural effusion.. Clear lung bases Limited noncontrast assessment of the soft tissues of viscera. UPPER ABDOMEN Liver and bile ducts: Diffuse hepatic steatosis and hepatomegaly. Liver measures up to 22.5 cm in craniocaudal length at the midclavicular line. No obvious focal finding. No abnormal intrahepatic biliary tree dilatation. Mild common bile duct prominence which can be physiologic postcholecystectomy. Gallbladder: Cholecystectomy Pancreas: Unenhanced pancreas is unremarkable. Spleen: Unenhanced spleen is unremarkable RETROPERITONEUM Adrenals: Normal Kidneys: No urinary system stones identified in the kidneys, ureters or bladder. Normal size and contour of the kidneys. No concerning focal lesion, collecting system obstruction or abnormal perinephric stranding. Lymph nodes: Nonspecific mild prominent left para-aortic retroperitoneal node measuring 8 mm in short axis, stable since 2020. No pathologically enlarged nodes by CT size criteria in the abdomen or pelvis. BOWEL AND PERITONEUM Bowel: Sagittal clips in the epigastric region may relate to hiatal hernia repair. Limited noncontrast assessment. Overall normal bowel caliber and thickness. Appendix not seen and may be surgically absent. No acute other significant gastrointestinal tract finding. Free air or fluid: None. VASCULATURE Aortoiliac atherosclerosis. No aneurysm PELVIS: Status post hysterectomy. No pelvic mass. Subcentimeter pelvic phleboliths are unremarkable. Unremarkable thin-walled urinary bladder. BONES/SOFT TISSUES Changes of the abdominal wall of the possible umbilical hernia repair. There is a thickened appearance of the soft tissues overlying the midline abdomen possible scarring. The superficial surface irregularity which may represent additional scarring, or skin blistering. No deep soft tissue ulceration. No drainable fluid collection or abscess seen within noncontrast study limits. Relative fatty atrophy of the right rectus muscle. L4-5 and moderate disc protrusion superimposed on a circumferential disc bulge, with L4 hemilaminectomy decompression at this level. No concerning focal lytic or blastic lesion Procedure Note Preston Stallworth MD - 09/08/[address] [address] Exam: CT abdomen without contrast Exam Date/Time: 09/08/2024 2:53 PM Indication: 53 female. Complaint drainage from wound and abdomenfollowing hernia repair with mesh in June 2024[facility] Comparison: CT abdomen pelvis 04/21/2021. No other recent prior is Technique: Computed tomography of the abdomen was performed withoutcontrast. A dose lowering technique was used for this procedure, which mayinclude, but is not limited to, dose reduction technique, automatedexposure control, the use of iterative reconstruction, and ALARA (As LowAs Reasonably Achievable) / Image Gently techniques. CT findings: LOWER CHEST Normal cardiac size. Right coronary artery disease and possible stent. Nopericardial or pleural effusion.. Clear lung bases Limited noncontrast assessment of the soft tissues of viscera. UPPER ABDOMEN Liver and bile ducts: Diffuse hepatic steatosis and hepatomegaly. Livermeasures up to 22.5 cm in craniocaudal length at the midclavicular line.No obvious focal finding. No abnormal intrahepatic biliary treedilatation. Mild common bile duct prominence which can be physiologicpostcholecystectomy. Gallbladder: Cholecystectomy Pancreas: Unenhanced pancreas is unremarkable. Spleen: Unenhanced spleen is unremarkable RETROPERITONEUM Adrenals: Normal Kidneys: No urinary system stones identified in the kidneys, ureters orbladder. Normal size and contour of the kidneys. No concerning focallesion, collecting system obstruction or abnormal perinephric stranding. Lymph nodes: Nonspecific mild prominent left para-aortic retroperitonealnode measuring 8 mm in short axis, stable since 2020. No pathologicallyenlarged nodes by CT size criteria in the abdomen or pelvis. BOWEL AND PERITONEUM Bowel: Sagittal clips in the epigastric region may relate to hiatal herniarepair. Limited noncontrast assessment. Overall normal bowel caliber andthickness. Appendix not seen and may be surgically absent. No acute othersignificant gastrointestinal tract finding. Free air or fluid: None. VASCULATURE Aortoiliac atherosclerosis. No aneurysm PELVIS: Status post hysterectomy. No pelvic mass. Subcentimeter pelvic phlebolithsare unremarkable. Unremarkable thin-walled urinary bladder. BONES/SOFT TISSUES Changes of the abdominal wall of the possible umbilical hernia repair. There is a thickened appearance of the soft tissues overlying the midlineabdomen possible scarring. The superficial surface irregularity which mayrepresent additional scarring, or skin blistering. No deep soft tissueulceration. No drainable fluid collection or abscess seen withinnoncontrast study limits. Relative fatty atrophy of the right rectusmuscle. L4-5 and moderate disc protrusion superimposed on a circumferential discbulge, with L4 hemilaminectomy decompression at this level. No concerningfocal lytic or blastic lesion IMPRESSION: 1. Changes of prior midline abdominal wall probably umbilical herniarepair; skin thickening and surface irregularity overlying the midlinevertical subcutaneous defect which may represent scarring and orblistering. No discrete deep ulceration soft tissue collection identifiedwithin study limits. 2. No acute intra-abdominal pelvic process within noncontrast CT limits 3. Enlarged fatty liver. 4. L4-5 disc herniation. 5. Other nonemergent, incidental, stable and potential chronic findings asdiscussed in the report body above. Ordered By: SUSHMA SHIELDS Interpreted By: Preston Stallworth MD, 09/08/2024 4:45 PM Sushma Shields PA CT Final Result * (ABNORMAL) CULTURE, WOUND, W/GRAM STAIN (09/08/2024 1:11 PM [facility]) SPEC DESCRIPTION ABDOMEN 09/08/2024 1:14 PM [facility] SPECIAL REQUESTS NO SPECIAL REQUEST 09/08/2024 1:14 PM [facility] GRAM STAIN RESULT FEW WHITE BLOOD CELLS SEEN 09/08/2024 10:11 PM [facility] GRAM STAIN RESULT NO ORGANISMS SEEN 09/08/2024 10:11 PM [facility] CULTURE RESULT LIGHT GROWTH OF STREPTOCOCCI, BETA HEMOLYTIC GROUP B SUSCEPTIBILTY NOT ROUTINELY PERFORMED. SAVING ISOLATE FOR 5 DAYS. CONTACT MICROBIOLOGY DEPARTMENT IF FURTHER WORKUP IS INDICATED. (A) 09/10/2024 9:05 AM [facility] CULTURE RESULT HEAVY GROWTH OF DIPHTHEROIDS SAVING ISOLATE FOR 5 DAYS. CONTACT MICROBIOLOGY DEPARTMENT IF FURTHER WORKUP IS INDICATED. (A) 09/10/2024 9:05 AM [facility] SWAB FROM ABDOMEN / Unknown 09/08/2024 1:11 PM [facility] 09/08/2024 1:19 PM [facility] Sushma MALAVE [facility] - GENERAL ORDERAB LES Final Result Performing Organization Address City/[facility]/ZIP Co de Phone Number [facility] [address] [place] [id number], [place] [phone] * LACTIC ACID W REFLEX (SEPSIS) (09/08/2024 1:08 PM [facility]) LACTIC ACID VENOUS 1.7 0.4 - 2.0 MMOL/L 09/08/2024 1:58 PM [facility] 09/08/2024 1:08 PM [facility] Sushma MALAVE LAB[facility] Final Result Performing Organization Address [facility]/ZIP Co de Phone Number [facility] [address] [place] [id number], [place] [phone] * (ABNORMAL) COMPREHENSIVE METABOLIC PANEL (09/08/2024 1:08 PM [facility]) GLUCOSE 110(H) 70 - 99 MG/DL 09/08/2024 2:12 PM [facility] BUN 12 7 - 18 MG/DL 09/08/2024 1:58 PM [facility] CREATININE S/P/B 0.76 0.55 - 1.02 MG/DL 09/08/2024 1:58 PM [facility] SODIUM S/P/B 136 136 - 145 MMOL/L 09/08/2024 1:58 PM [facility] POTASSIUM S/P/B 3.9 3.5 - 5.1 MMOL/L 09/08/2024 1:58 PM [facility] CHLORIDE S/P/B 105 97 - 115 MMOL/L 09/08/2024 1:58 PM [facility] CO2 29.5 21 - 32 MMOL/L 09/08/2024 1:58 PM [facility] CALCIUM S/P/B 9.6 8.5 - 10.1 MG/DL 09/08/2024 1:58 PM [facility] BILIRUBIN TOTAL S/P/B 0.3 0.2 - 1.2 MG/DL 09/08/2024 1:58 PM [facility] Comment: THIS ASSAY IS NOT RECOMMENDED FOR PATIENTS UNDERGOING TREATMENT WITH ELTROMBOPAG DUE TO THE POTENTIAL FOR FALSELY ELEVATED RESULTS. TOTAL PROTEIN S/P/B 7.6 6.4 - 8.2 G/DL 09/08/2024 1:58 PM [facility] ALBUMIN S/P/B 3.5 3.4 - 5.0 G/DL 09/08/2024 1:58 PM [facility] AST 17 15 - 37 U/L 09/08/2024 1:58 PM [facility] ALT 32 14 - 55 U/L 09/08/2024 1:58 PM [facility] ALKALINE PHOSPHATASE S/P/B 68 50 - 136 U/L 09/08/2024 1:58 PM [facility] ANION GAP 1.5(L) 2 - 10 MMOL/L 09/08/2024 1:58 PM [facility] BUN CREATININE RATIO 15.8 6 - 26 09/08/2024 1:58 PM [facility] A/G RATIO 0.9(L) 1.0 - 2.0 RATIO 09/08/2024 1:58 PM [facility] GFR ESTIMATE >90 >90 ML/MIN/1.7 3 M2 09/08/2024 1:58 PM [facility] Comment: NOTE: eGFR is not calculated for patients <18 years of age or gender unknown. This is an estimated GFR calculation using the new CKD EPI creatinine equation without race and so does not require a correction factor for race. This estimated GFR should not be used for calculating drug doses. 09/08/2024 1:08 PM [facility] us Sushma MALAVE [facility]ORAT[facility] Final Result [facility] [address] [place] [address], * (ABNORMAL) CBC W/DIFF AUTOMATED (09/08/2024 1:08 PM [facility]) WBC 6.06 4.5 - 11.0 x10'3/uL 09/08/2024 1:25 PM [facility] RBC 4.65 4.20 - 5.40 x10'6/uL 09/08/2024 1:25 PM [facility] HGB 13.2 12.0 - 16.0 G/DL 09/08/2024 1:25 PM [facility] HCT 39.5 38.0 - 48.0 % 09/08/2024 1:25 PM [facility] MCV 84.9 81.0 - 99.0 FL 09/08/2024 1:25 PM [facility] MCH 28.4 27.0 - 31.0 PG 09/08/2024 1:25 PM [facility] MCHC 33.4 32.0 - 36.0 G/DL 09/08/2024 1:25 PM [facility] RDW 15.4(H) 11.5 - 14.5 % 09/08/2024 1:25 PM [facility] PLT 309 130 - 400 x10'3/uL 09/08/2024 1:25 PM [facility] MPV 10.2 9.3 - 12.2 FL 09/08/2024 1:25 PM [facility] DIFFERENTIAL TYPE AUTOMATED DIFFERENTIAL 09/08/2024 1:25 PM [facility] NEUTROPHILS % 60.5 % 09/08/2024 1:25 PM [facility] LYMPHOCYTES % 32.8 % 09/08/2024 1:25 PM [facility] MONOCYTES % 4.1 % 09/08/2024 1:25 PM [facility] EOSINOPHILS 2.0 % 09/08/2024 1:25 PM [facility] BASOPHILS 0.3 % 09/08/2024 1:25 PM [facility] IMMATURE GRANS % 0.3 % 09/08/19 1:25 PM [facility] ABS. NEUTROPHILS 3.66 1.80 - 7.70 x10'3/uL 09/08/2024 1:25 PM [facility] ABS. LYMPHOCYTES 1.99 1.00 - 4.80 x10'3/uL 09/08/2024 1:25 PM [facility] ABS. MONOCYTES 0.25 0.24 - 0.86 x10'3/uL 09/08/2024 1:25 PM [facility] ABS. EOSINOPHILS 0.12 0.04 - 0.36 x10'3/uL 09/08/2024 1:25 PM [facility] ABS. BASOPHILS 0.02 0.01 - 0.08 x10'3/uL 09/08/2024 1:25 PM [facility] ABS. IMMATURE GRANULOCYTES 0.02 0.00 - 0.49 x10'3/uL 09/08/2024 1:25 PM [facility] 09/08/2024 1:08 PM [facility] Sush[facility]AVE [facility] Final Result [facility] [address] [place] [address], [place] [phone] * HEMOGLOBIN, GLYCATED (09/07/2019 2:41 AM [facility]) HGB A1C 5.3 4.2 - 6.3 % 09/07/2019 3:42 AM [facility] Comment: ADA GUIDELINES 2010 5.7 TO 6.4% INCREASED RISK OF DIABETES > OR = 6.5% CONSISTENT WITH DIABETES ESTIMATED AVG GLUCOSE 105 mg/dL 09/07/2019 3:42 AM [facility] 09/07/2019 2:41 AM [facility] Jairo Goodrich MD LABORATORY Final Result Performing Organization Address City/[facility]/ZIP Co de Phone Number [facility] [address] [place] [address], [place] [phone] * (ABNORMAL) LIPID PANEL (09/07/2019 2:41 AM [facility]) CHOLESTEROL 212(H) <200 MG/DL 09/07/2019 3:23 AM [facility] TRIGLYCERIDES 74 <150 MG/DL 09/07/2019 3:23 AM [facility] HDL 38(L) >40.0 MG/DL 09/07/2019 3:23 AM [facility] LDL (CALCULATED) 159(H) <100 MG/DL 09/07/2019 3:23 AM [facility] NON HDL CHOLESTEROL 174(H) <130 MG/DL 09/07/2019 3:23 AM [facility] CHOL/HDL RATIO 5.6(H) 0.0 - 4.5 09/07/2019 3:23 AM [facility] VLDL CALCULATION 15 5 - 55 MG/DL 09/07/2019 3:23 AM [facility] LIPID INTERPRETATION 09/07/2019 3:23 AM [facility] Comment: NIH CONCENSUS REPORT RECOMMENDATIONS: ADULT CHILD LOW RISK: CHOLESTEROL <200 <170 TRIGLYCERIDE <150 --- HDL >=60 --- LDL <100 <110 BORDERLINE: CHOLESTEROL 200-239 170-199 TRIGLYCERIDE 150-199 --- HDL 40-59 --- LDL 100-159 110-129 HIGH RISK: CHOLESTEROL >=240 >=200 TRIGLYCERIDE >=200 --- HDL <40 --- LDL >=160 >=130 09/07/2019 2:41 AM [facility] Jairo Goodrich MD LABORATORY Final Result [facility] [address] [place] [address], [place] [phone] * MG SCREENING W YARED SANJU DIGI (03/22/2019 1:16 PM CDT) Anatomical Region Laterality Modality Breast Bilateral Mammography 03/22/2019 1:44 PM CDT Impressions 03/22/2019 1:46 PM CDT IMPRESSION: There is no mammographic evidence of breast malignancy. RECOMMENDATION: The patient may resume routine screening mammography in 2019 provided there is no clinical indication for additional imaging of the breasts before then. CATEGORY: BIRADS 2 - BENIGN. Narrative 03/22/2019 1:46 PM CDT EXAMINATION: BILATERAL SCREENING MAMMOGRAM EXAM DATE: 03/22/2019 12:48 PM CLINICAL INDICATION: This is a routine screening exam. The patient reports no breast complaints. TECHNIQUE: Each breast has been imaged in CC and MLO projection utilizing both 2-D and 3-D tomosynthesis technique. The current mammographic images are also evaluated by a computer aided detection system (CAD). CAD is negative. COMPARISON: Bilateral mammogram dated 02/10/2018. FINDINGS: The breast tissue is of scattered fibroglandular density. No spiculated mass, suspicious microcalcification, architectural distortion, skin thickening or axillary adenopathy is seen. Calcifications with benign features are present bilaterally. Milly Cordoba MD MAMMO Final Result from Last 3 Months or Most Recently Relevant to Health Maintenance Insurance MEDICAID [facility] MEDICAL REIMBURSEMENTS OF ANIL Advance Directives * Full Code (Latest Code Status on File) Date Activated Date Inactivated Comments 04/21/2021 10:28 PM 04/25/2021 4:56 PM * Full Code Date Activated Date Inactivated Comments 09/06/2019 11:53 PM 09/07/2019 8:05 PM Care Teams Charging Operator Relationship Specialty Start Date End Date Milly Cordoba MD [address] [place] [id number] PCP - General FAMILY PRACTICE 03/20/24 Garcia Bennett MD [facility]. [address] [id number] [place] [employer] CARDIOVASCULAR DISEASE 01/21/18
--- OUTSIDE RECORDS SUMMARY | 2024-12-02 13:50 | XMS_ITS | Clinical Summary ---
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 rate (10/13/2024 10:30 AM FREELANCE PHOTOGRAPHER) Erythrocyte sedimentation rate 24 1 - 30 mm/hr Blood 10/13/2024 10:3 0 AM FREELANCE PHOTOGRAPHER 10/13/2024 12:18 PM FREELANCE PHOTOGRAPHER Sarah Rodriguez CDS SALES ADVISOR LAB BLOOD ORDERABLES Final Result Performing Organization Address [facility] de Phone Number [address] [place] [address] * TSH (10/13/2024 10:30 AM FREELANCE PHOTOGRAPHER) Thyroid Stimulating Hormone 1.00 0.30 - 4.20 mcIUnit/mL Blood 10/13/2024 10:3 0 AM FREELANCE PHOTOGRAPHER 10/13/2024 12:16 PM FREELANCE PHOTOGRAPHER Sarah Rodriguez CDS SALES ADVISOR LAB BLOOD ORDERABLES Final Result Performing Organization Address [facility] Co de Phone Number [address] [place] [address] * T4, free (10/13/2024 10:30 AM FREELANCE PHOTOGRAPHER) Free T4 1.33 0.90 - 1.70 ng/dL Blood 10/13/2024 10:3 0 AM FREELANCE PHOTOGRAPHER 10/13/2024 12:16 PM FREELANCE PHOTOGRAPHER Sarah Rodriguez CDS SALES ADVISOR LAB BLOOD ORDERABLES Final Result Performing Organization Address City/[facility] Co de Phone Number [address] [place] [address] * Vitamin B12 (10/13/2024 10:30 AM FREELANCE PHOTOGRAPHER) Vitamin B12 556 230 - 1,250 pg/mL Blood 10/13/2024 10:3 0 AM FREELANCE PHOTOGRAPHER 10/13/2024 12:16 PM FREELANCE PHOTOGRAPHER Sarah Rodriguez CDS SALES ADVISOR LAB BLOOD ORDERABLES Final Result Performing Organization Address [facility] Co de Phone Number SHAHAB [address] [place] [address] * (ABNORMAL) Valproic acid level, total (10/13/2024 10:30 AM FREELANCE PHOTOGRAPHER) Pathologist [facility] Valproic Acid 41.3(L) 50.0 - 100.0 mcg/mL Blood 10/13/2024 10:3 0 AM FREELANCE PHOTOGRAPHER 10/13/2024 12:16 PM FREELANCE PHOTOGRAPHER Result [facility] Sarah Rodriguez CDS SALES ADVISOR LAB BLOOD ORDERABLES Final Result Performing Organization Address [facility] de Phone Number [address] [address] * MRI Brain W WO Contrast (10/07/2024 12:48 PM FREELANCE PHOTOGRAPHER) Anatomical Region Laterality Modality Head and Neck N/A Magnetic Resonan ce 10/07/2024 12:5 9 PM FREELANCE PHOTOGRAPHER Narrative 10/07/2024 1:18 PM FREELANCE PHOTOGRAPHER EXAM DESCRIPTION: MRI BRAIN W WO CONTRAST [...] Chris Ferrera M.D. MM T: Report ID: [id number] Reading Location: [place] [address] Procedure Note Chris Ferrera MD - 10/07/2024 [...] by Chris Ferrera M.D. T: Report ID: [id number] Reading Location: [id number] Patricia MALAVE [facility] MRI PROCEDURES Final Result * MRI Thoracic Spine WO Contrast (10/07/2024 12:15 PM FREELANCE PHOTOGRAPHER) Anatomical Region Laterality Modality Spine N/A Magnetic Resonan ce 10/07/2024 12:2 9 PM FREELANCE PHOTOGRAPHER Narrative 10/07/2024 12:45 PM FREELANCE PHOTOGRAPHER EXAM DESCRIPTION: MRI THORACIC SPINE WO CONTRAST [...] Chris Ferrera M.D. MM T: Report ID: [id number] Reading Location: [place] [address] Procedure Note Chris Ferrera MD - 10/07/2024 [...] Chris Ferrera M.D. MM T: Report ID: [id number] Reading Location: [place] [address] Patricia MALAVE IMG MRI PROCEDURES Final Result * eGFR (07/24/2024 9:07 AM FREELANCE PHOTOGRAPHER) eGFR >90 >=60 mL/min/1. 73 m2 Comment: [...] last reviewed 2021. Blood 07/24/2024 9:07 AM FREELANCE PHOTOGRAPHER 07/24/2024 9:11 AM FREELANCE PHOTOGRAPHER Tirso Santos MD LAB BLOOD ORDERABLE S Final Result [facility] [address] [place] [place] [address] * DIABETES EYE EXAM (07/19/2024) [facility] SCRIBED DIABETIC DILATED EYE EXAM Normal Gurpreet Ignacio MD HEALTH MAINTENANCE Final Result * (ABNORMAL) Hemoglobin A1c (06/09/2024 12:33 PM CDT) [facility] Hgb A1C 5.7(H) 4.0 - 5.6 % Estimated Average Glucose 117 mg/dL [facility] Comment: The ADA recommends reporting an estimated Average Glucose (eAG) with all Hemoglobin A1c results using the equation derived from a study of 507 normal and diabetic adults. Minority populations were underrepresented and children were not included. (Diabetes Care 31:7721-7096, 2008). The eAG is not equivalent to a fasting glucose. Blood 06/09/2024 12:3 3 PM CDT 06/09/2024 12:33 PM CDT Jasmina Jung NP LAB BLOOD ORDERABLES Final Result [facility] [address] [place] [address] * (ABNORMAL) Albumin Creatinine Ratio, Urine (10/29/2023 9:06 AM FREELANCE PHOTOGRAPHER) [facility] Albumin Ur 30.8 mg/L SHAHAB Comment: Interpretive Data No reference range established. Current interpretive data was last revised 2019. Testing performed by: [address] [address] Creatinine Ur 98.4 mg/dL SHAHAB FELICIANO Comment: Interpretive Data No reference range established. Current interpretive data was last revised 2019. Testing performed by: [address] [address] Albumin Creatinine Ratio, Ur 31(H) 1 - 29 mg/g SHAHAB FELICIANO Comment:Testing performed by : [address] [address] Urine 10/29/2023 9:06 AM FREELANCE PHOTOGRAPHER 10/29/2023 9:17 AM FREELANCE PHOTOGRAPHER us Vesna Parry MD LAB URINE ORDERABLES Nicole euceda Result SHAHAB [address] [facility] Department [place] [address] * (ABNORMAL) Lipid panel (10/29/2023 9:06 AM FREELANCE PHOTOGRAPHER) Cholesterol 219(H) 30 - 199 mg/dL SHAHAB FELICIANO Comment: Interpretive Data Ages < or = [...] last revised on 2018. Testing performed by: [address] [address] Triglycerides 158(H) <=149 mg/dL SHAHAB FELICIANO Comment: Interpretive Data Ages < or = [...] last revised on 2018. Testing performed by: [address] [address] HDL 37(L) >=40 mg/dL SHAHAB Comment: Interpretive Data Ages < or = 19 years Acceptable: >45 mg/dL Borderline low: 40-45 mg/dL Low: <40 mg/dL Ages > or = 20 years Desirable: >or= 60 mg/dL Low: <40 mg/dL Literature References: 1. Expert Panel on Integrated Guidelines for Cardiovascular Health and Risk Reduction in Children and Adolescents. Pediatrics 2011;128:S213 2. NCEP Expert Panel. Circulation 2003;110:227 Current Interpretive Data was last revised on 2018. Testing performed by: [address] [address] LDL, calculated 150(H) <=129 mg/dL SHAHAB Comment: [...] last revised on 2018. Testing performed by: [address] [address] Non-HDL Cholesterol 182 mg/dL SHAHAB Comment: Interpretive [...] last revised on 2018. Testing performed by: [facility], [address] [place] [address]., [address] Chol/HDL ratio 6 SHAHAB Comment:Testing performed by : [facility], [address] [place] [address]., [address] Blood 10/29/2023 9:06 AM FREELANCE PHOTOGRAPHER 10/29/2023 9:38 AM FREELANCE PHOTOGRAPHER Vesna Parry MD LAB BLOOD ORDERABLES Nicole l Result SHAHAB [address] [facility] Department [place] [address] * Colonoscopy (01/04/2022) Anatomical Region Laterality Modality Other Impressions 01/04/2022 Results available in Care Everywhere Historical Provider ENDOSCOPY PROCEDURES Nicole l Result from Last 3 Months or Most Recently Relevant to Health Maintenance Insurance IDPA [facility] CHOICE PLUS IDPA WORKERS COMPENSATION GENERIC WORKERS COMPENSATION GENERIC WORKERS COMPENSATION GENERIC WORKERS COMPENSATION GENERIC WORKERS COMPENSATION GENERIC WORKERS COMPENSATION GENERIC WORKERS COMPENSATION GENERIC WORKERS COMPENSATION GENERIC WORKERS COMPENSATION GENERIC COMPENSATION IDPA IDPA Advance Directives For more information, please contact: [phone] * Full Code (Latest Code Status on File) Date Activated Date Inactivated Comments 07/24/2024 5:32 PM 07/25/2024 1:12 PM * Full Code Date Activated Date Inactivated Comments 06/11/2024 12:12 PM 06/12/2024 4:45 PM * Full Code Date Activated Date Inactivated Comments 12/26/2022 3:16 PM 12/28/2022 7:04 PM * Full Code Date Activated Date Inactivated Comments 03/06/2020 10:28 AM 03/06/2020 5:45 PM Care Teams Web Administrator Relationship Specialty Start Date End Date Patricia Nichols PA [address] [address] PCP - General Family Medicine 06/09/24 Lele Millan DO [address] [place] [address] [place] [address] Consulting Physician Orthopedic Surgery 02/26/22
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
--- OUTSIDE RECORDS SUMMARY | 2024-12-02 13:50 | XMS_ITS ---
Author Organization Unknown Address [address], [place] [id number] Phone Care Team Providers Care Court Recording Monitor Name Role Phone NINO RASCON Attending Unavailable Immunization Immunization Date Status Additional Notes Code Code System Pneumococcal conjugate PCV20 , polysaccharide [id number] conjugate, adjuvant, PF 05/24/2024 Completed 216 CVX [...] pneumococcal polysaccharide PPV23 06/18/2019 Completed 33 CVX Social History Type Status Start Date End Date Code Code Syst em Smoking History Never smoker (Never Smoked) [id number] SNOMED CT Sex Female Hospital Discharge Instructions Should you have any questions prior to discharge, please contact a member of your healthcare team. If you have left the hospital and have any questions, please contact your primary care physician. Reason For Referral No Data Found Plan of Treatment No Data Found Encounters Encounter Diagnosis Start Date Code Code Sys tem Infection and inflammatory r eaction due to other internal prosthetic devices, implants and grafts, initial encounter 08/02/2024 SNOMED-CT Personal Care Team Section Performer Name Performer Role Active Date Inactive Da te
--- OUTSIDE RECORDS SUMMARY | 2024-12-02 13:50 | XMS_ITS ---
Author Organization Unknown Address [address] [place], [place] [phone] Phone Care Team Providers Care Water Quality Manager Name Role Phone KENDRICK Martino Attending Unavailable Immunization Immunization Date Status Additional Notes Code Code System Pneumococcal conjugate PCV20 , polysaccharide [id number] conjugate, adjuvant, PF 05/24/2024 Completed 216 CVX [...] PPV23 06/18/2019 Completed 33 CVX Results MRI KNEE RIGHT W/O CONTRAST - Completed: 01/17/2022 15:07 LOINC: EXAMINATION: MRI RIGHT KNEE WITHOUT CONTRASTACCESSION: [id number] DATE: 01/17/2022 2:21 PM REASON FOR EXAM: Knee pain and swelling and injury COMPARISON: NoneTECHNIQUE: Multiplanar multisequence imaging of the knee without intravenous contrast.FINDINGS: Mild soft tissue swelling. Small joint effusion.Medial collateral ligament: Within normal limits.Lateral collateral ligament and biceps femoris tendon: Intact.Iliotibial band: Intact.Cruciates: Anterior and posterior cruciate ligaments intact.Extensor mechanism intact.Menisci: No definite meniscal tear. However, there is blunting of the apex of the body of the lateral meniscus could relate to degeneration or a small vertical tear. Correlation with symptoms recommended.Cartilage: Intact.Bone marrow: No suspicious lesion or fracture.IMPRESSION:1. No definite meniscal tear. However, there is blunting of the apex of the body of the lateral meniscus could relate to degeneration or a small vertical tear. Correlation with symptoms recommended.2. Small joint effusion. Created and Electronically Signed by:Rivas Griffin MD01/17/2022 15:24 Social History Type Status Start Date End Date Code Code Syst em Smoking History Never smoker (Never Smoked) [id number] [facility] Sex Female Hospital Discharge Instructions Should you have any questions prior to discharge, please contact a member of your healthcare team. If you have left the hospital and have any questions, please contact your primary care physician. Reason For Referral No Data Found Plan of Treatment No Data Found Encounters Encounter Diagnosis Start Date Code Code Sys tem 01/17/2022 [id number] [facility] Personal Care Team Section Performer Name Performer Role Active Date Inactive Da te Imaging Narrative Notes [facility] 01/17/2022 15:[address] [address] RADIOLOGY REPORT NAME: NUMBER: SEX: AGE: ADMIT: SERVICE: Type: LUKE ROBERTS Roxane [id number] F 51 01/17/22 AX 2 DATE OF : 1970 M/R#: [id number] HOME PHONE: [phone] RM: CELL PHONE: [phone] ACCESSION NUMBER: [id number] MRI KNEE RIGHT W/O CONTRASTCOMPLETE: 01/17/2022 15:07 KB ATTENDING PHYSICIAN: BEKA SÁNCHEZ PHYSICIAN: DICTATING PHYSICIAN: Rivas Griffin MD PRIMARY CARE PHYSICIAN: Unsigned transcriptions represent a preliminary report and do not represent a medical or legal document EXAMINATION: MRI RIGHT KNEE WITHOUT CONTRAST EXAM DATE: 01/17/2022 2:21 PM REASON FOR EXAM: Knee pain and swelling and injury COMPARISON: None TECHNIQUE: Multiplanar multisequence imaging of the knee without intravenous contrast. FINDINGS: Mild soft tissue swelling. Small joint effusion. Medial collateral ligament: Within normal limits. Lateral collateral ligament and biceps femoris tendon: Intact. Iliotibial band: Intact. Cruciates: Anterior and posterior cruciate ligaments intact. Extensor mechanism intact. Menisci: No definite meniscal tear. However, there is blunting of the apex of the body of the lateral meniscus could relate to degeneration or a small vertical tear. Correlation with symptoms [address] [address] RADIOLOGY REPORT NAME: NUMBER: SEX: AGE: ADMIT: SERVICE: Type: LUKE ROBERTS [id number] F 51 01/17/22 AX 2 DATE OF : 1970 M/R#: [id number] HOME PHONE: [phone] RM: CELL PHONE: [phone] ACCESSION NUMBER: [id number] MRI KNEE RIGHT W/O CONTRASTCOMPLETE: 01/17/2022 15:07 KB ATTENDING PHYSICIAN: BEKA SÁNCHEZ PHYSICIAN: DICTATING PHYSICIAN: Rivas Griffin MD PRIMARY CARE PHYSICIAN: Unsigned transcriptions represent a preliminary report and do not represent a medical or legal document recommended. Cartilage: Intact. Bone marrow: No suspicious lesion or fracture. IMPRESSION: 1. No definite meniscal tear. However, there is blunting of the apex of the body of the lateral meniscus could relate to degeneration or a small vertical tear. Correlation with symptoms recommended. 2. Small joint effusion. Created and Electronically Signed by: Rivas Griffin MD 01/17/2022 15:24
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
--- OUTSIDE RECORDS SUMMARY | 2024-12-02 13:51 | XMS_ITS | Data Portability ---
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 MD [facility] [address] [facility] [place] [address] 07/02/2018 15:06:22 07/02/2018 17:09:16 Left inguinal hernia 261990173 K40.90 [id number] Milly Cordoba MD [facility] [address] [place] [address] 07/28/2018 14:10:08 08/12/2018 12:31:36 Acute bilateral otitis media 685344707 H66.93 Low back pain 206132406 M54.5 forms filled out for disability Acute gastroenteritis 69 740880 K52.9 Bananas, rice, applesauce , toast, tea with sugar in it, and yogurt may help calm down an upset stomach. [id number] Milly Cordoba MD [facility] [address] [place] [address] 08/18/2018 14:01:11 08/27/2018 10:44:18 Dysphagia 71039480 R13.10 Rectal hemorrhage 043253 02 K62.5 Productive cough 6126642 5 R05 Essential hypertension 30687283 I10 Coronary arteriosclerosis 87329045 I25.10 3 stents placed in 2017, still gets chest pain Hyperlipidemia 09626664 E78.2 [id number] Milly Cordoba MD [facility] [address] [place] [address] 11/23/2018 10:16:44 11/30/2018 08:49:09 Type 2 diabetes mellitus 13717921 E11.36 Gastro-eso phageal reflux disease with esophagitis 930566730 K21.0 scheduled for Xiao fundoplica tion Acute bila teral otitis media 614006297 H66.93 [id number] Milly Cordoba MD [facility] [address] [place] [address] 02/16/2019 09:54:16 02/22/2019 10:49:16 Migraine 92823691 G43.909 has to go to bed when she has a migraine attack. Will try amitriptyl ine to suppress migraines; may also help with the depression . Anxiety 41205867 F41.9 Obstructiv e sleep apnea syndrome 22697294 G47.33 hx of PRAKASH treated with uppp; has recurrent snoring. Chronic back pain 024106 002 M54.15 Moderate r ecurrent major depression 06973142 F33.1 panic attacks. Does not tolerate prozac, seroquel, wellbutrin , sertraline , or citalopram [id number] Milly Cordoba MD [facility] [address] [place] [address] 03/16/2019 09:42:54 03/29/2019 08:49:31 Disorder of thyroid gland 97300689 E07.9 Screening mammography 24 762462 Z12.31 Sleep apnea 48745704 G47 .30 Fatigue 24171270 R53.83 [id number] Milly Cordoba MD [facility] [address] [facility] [place] [address] 04/05/2019 14:44:17 04/06/2019 09:00:14 New daily persistent headache 0507001225 32213 G44.52 history of severe headache with brain fog and trouble thinking for over 4 weeks; positive history of head trauma. Taking intermission coordinator medication for seizures 20 years ago. Memory impairment during headaches. Epilepsy 16371060 G40.90 9 [id number] Milly Cordoba MD [facility] [address] [place] [address] 04/08/2019 14:38:07 04/14/2019 09:40:59 Muscle spasm of cervical muscle of neck 5247146109 04 M62.838 Chronic back pain 184249 002 M54.15 [id number] Milly Cordoba MD [facility] [address] [place] [address] 04/16/2019 11:44:50 04/19/2019 10:02:28 Pain in throat 965420897 R07.0 Chronic otitis media 211 60310 H66.93 Chronic back pain 344345 002 M54.15 [id number] Milly Cordoba MD [facility] [address] [place] [address] 06/04/2019 14:03:07 06/07/2019 11:49:15 Pneumonia 078188778 J18.9 continue ventolin and doxycyclin e from emergency room last night. Chicken soup, orange juice, popsicles, snow cones, slurpees, ice cream, tea with honey and lemon, hot lemonade, gatorade, and yogurt may make you feel better. Type 2 adilson betes mellitus 69386165 E11.36 Depression screening 171 982270 Z13.31 patient does not appear to be significan tly depressed. [id number] Milly Cordoba MD [facility] [address] [place] [address] 06/18/2019 14:08:12 06/22/2019 08:20:29 Upper respiratory infection 91750072 J06.9 Not up to date with immunizations 361185782 Z28.3 risks and benefits of immunizati ons reviewed, and patient agreed to receive shot.imm Acute low back pain 2788 38601 M54.5 Active or passive immunization 880360500 Z23 risks and benefits of immunizati ons reviewed, and patient agreed to receive shot [id number] Milly Cordoba MD [facility] [address] [place] [address] 08/24/2019 10:42:26 08/26/2019 10:52:05 Closed fracture dislocation of distal interphalangeal joint of finger 740738529 S62.635D L ring finger Intermitte nt palpitations 719682768 R00.2 has appt with cardiologi in September [id number] Milly Cordoba MD [facility] [address] [place] [address] 09/13/2019 10:31:41 09/21/2019 10:59:48 Acute bronchitis with bronchospasm 09460780 J20.9 Chicken soup, orange juice, popsicles, snow cones, slurpees, ice cream, tea with honey and lemon, hot lemonade, gatorade, and yogurt may make you feel better. Migraine 33063928 G43.90 9 has to go to bed when she has a migraine attack. Will try amitriptyl ine to suppress migraines; may also help with the depression . [id number] Jcarlos Harris MD [facility] [address] [place] [address] 09/13/2019 15:05:40 09/15/2019 16:17:50 Fracture of phalanx of finger 90804259 S62.605A No left handed work [id number] Milly Cordoba MD [facility] [address] [place] [address] 09/15/2019 15:30:31 09/21/2019 11:24:48 Intermittent palpitations 098357235 R00.2 has appt with cardiologi in September Essential hypertension 92820927 I10 Depression screening 171 536641 Z13.31 patient does not appear to be significan tly depressed. She is already taking amitriptyl ine. [id number] Milly Cordoba MD [facility] [address] [place] [address] 08/07/2020 09:57:30 08/12/2020 00:46:53 Health Concerns Section Related Observation LastModified by Organization Detai ls LastModified Time None Recorded Concern Status LastModified by Organization Details LastModified Time None Recorded Advance Directives Directive N: Payers Encounter Date Sequence Insurance Name Policy Number Policy Up Covered Member ID Up Member ID Guarantor Name 08/24/2019 1 [facility] PRIOR TO 03/01/2021 (MEDICAID REPLACEMENT - HMO) Tammy Hammer [id number] Tammy Hammer 09/13/2019 1 [facility] PRIOR TO 03/01/2021 (MEDICAID REPLACEMENT - HMO) Tammy Hammer [id number] Tammy Hammer 09/13/2019 1 [facility] PRIOR TO 03/01/2021 (MEDICAID REPLACEMENT - HMO) Tammy Hammer [id number] Tammy Hammer 09/15/2019 1 [facility] PRIOR TO 03/01/2021 (MEDICAID REPLACEMENT - HMO) Tammy Hammer [id number] Tammy Hammer 08/07/2020 1 [facility] PRIOR TO 03/01/2021 (MEDICAID REPLACEMENT - HMO) Tammy Hammer [id number] Tammy Hammer Notes Date Note Type Note Provider Name and Address Organization Details Recorded Time 08/24/20 19 text/ht ml Hand/FingersReported bypatient.Hand Dominance:right Location:left; 4th digit; DIP joint Quality:stabbing; sharp; frequent Severity:severe Timing:acute; abrupt Context:work injury Alleviating Factors:splint Aggravating Factors:lifting; carrying; twisting; pushing/pulling; gripping; grasping; squeezing; throwing; computer use; changing clothes; cold weather; damp weather Associated Symptoms:no drainage; no fever; no chills; no weight loss; no change in bowel/bladder habits;weakness;tingling;swelling ;catching/locking;popping/clickin g;instability;radiating to fourth/fifth broke left ring finger, needs paperwork filled out. Milly Cordoba MD Attn: Accounting, [address] [place], [address], [facility] 08/25/2019 22:52:42 09/13/19 20 text/ht ml Wrist/HandReported bypatient.Location:left; ring Quality:aching Severity:mild Duration:continuous since onset Timing:acute Context:work injury; crush injury by door Alleviating Factors:rest; splint Aggravating Factors:gripping; grasping; ROM Associated Symptoms:no numbness; no tingling; no redness; no warmth; no ecchymosis; no catching/locking; no popping/clicking;weakness;swellin g Previous Surgery:none Prior Imaging:x ray; told fx Previous Injections:none Previous PT:none Work Related:yes Working:modified duty DOI 08/13/2019 at work hand caught in metal door ER 08/14/2019 [place] Jcarlos Harris MD [address] [place], [address], [facility] 09/13/2019 16:58:40 09/13/19 20 text/ht ml CoughReported bypatient.Quality:harsh Severity:worsening;pain with cough; severe Duration:symptoms lasting over 2 weeks Timing:worse; sudden Context:smoker;worse at night;history of asthma Modifying Factors:inhaler Associated Symptoms:fever;chills;chest pain;heartburn;nausea;vomiting;wh eezing;post nasal drip; headacheHeadacheReported bypatient.Location:unilateral; including neck Quality:similar to previous headaches;throbbing;tightness;pie rcing/stabbing (lancinating) Severity:moderate Onset/Timing:occurs multiple times in a month Context:occurs with exertion; occurs in a cyclical pattern; triggered by life events; stress at work; poor sleep Aggravating factors:loud noise; bright lights, emotional stress Alleviating factors:laying in a dark room; sleep; rest Associated Symptoms:nausea;rhinorrhea;photop hobia;blind spots;tearing/watery eyes;confusion;slurred speech;with preceeding aura; hyperacusis, posterior neck pain having issues with vertigo, and bad headache...pain scale 5/10 Milly Cordoba MD Attn: Accounting, [address] [place], [address], [facility] 09/20/2019 17:08:20 09/15/19 20 text/ht ml Hypertension F/UReported bypatient.Associated Symptoms:no dizziness; no chest pain; no edema; no calf pain with exertion;lightheadedness;shortnes s of breath;palpitations Lifestyle:regular exercise; limiting/avoiding salt Medications:taking medications as directed; no side effects from medicationPalpitationsReported bypatient.Location:chest Quality:skipping;rapid;forceful Severity:moderate Onset/Timing:intermittent Context:exertional;occurs with stress;abrupt onset without warning Alleviating Factors:relieved with rest Aggravating Factors:worse with activity;worse with emotional stress Associated Symptoms:dyspnea;exertional dyspnea;decline in exercise capacity;fatigue;dizziness Plastics Spreading Machine Operator told pt to make appt to be checked out on the anxiety issues. Milly Cordoba MD Attn: Accounting, [address] [place], [address], [facility] 09/20/2019 14:41:53 OBGyn Episode No OBEpisode recorded.
--- OUTSIDE RECORDS SUMMARY | 2024-12-02 13:51 | XMS_ITS ---
Author Organization Unknown Address [address], [place] [id number] Phone Care Team Providers Care Cooker Helper Name Role Phone KENDRICK Martino Attending Unavailable Immunization Immunization Date Status Additional Notes Code Code System Pneumococcal conjugate PCV20 , polysaccharide PYP658 conjugate, adjuvant, PF 05/24/2024 Completed 216 CVX [...] MRI KNEE RIGHT W/O CONTRAST - Completed: 11/21/2022 08:02 LOINC: EXAMINATION: MRI right knee without contrast DATE/TIME: 11/21/2022 7:25 AM REASON FOR EXAM: Right knee pain. Prior surgery. COMPARISON: 01/17/2022TECHNIQUE: Multiplanar multisequence MRI of the right knee without contrastFINDINGS: The cruciate and collateral ligaments are intact. Patellar and quadriceps tendons are intact. There is only minimal if any signal change of the proximal patellar tendon without suspicious edema or discrete tear. Small joint effusion. Minimal fluid in the semimembranosus-gastrocnemius bursa without significant popliteal cyst.Patellofemoral alignment is intact. Patellofemoral cartilage is unremarkable. No discrete fissuring or subchondral bone changes.In the medial compartment, the meniscus is intact. There is mild degenerative cartilage signal inhomogeneity. Mild cartilage thinning overlying the medial central weightbearing aspects of the tibial plateau and femoral condyle. There is only a tiny focus of subarticular edema of the medial tibial plateau. Small marginal osteophytes.In the lateral compartment, there is a tiny radial tear at the junction of the body and posterior horn of the meniscus. Slightly nodular in contour. This is unchanged in retrospect. Minimal signal changes of the hyaline cartilage without discrete fissuring. No subchondral bone changes.=====IMPRESSION:===== 1. Again shown is a questionable tiny radial tear of the lateral meniscus body-posterior horn junction. No significant interval change.2. Mild degenerative changes in the medial compartment with mild degenerative chondrosis as described. No medial meniscus tear.3. Small joint effusion. Created and Electronically Signed by:Jcarlos Moore MD11/21/2022 10:32 Social History Type Status Start Date End Date Code Code Syst em Smoking History Never smoker (Never Smoked) [id number] [place] Sex Female Hospital Discharge Instructions Should you have any questions prior to discharge, please contact a member of your healthcare team. If you have left the hospital and have any questions, please contact your primary care physician. Reason For Referral No Data Found Plan of Treatment No Data Found Encounters Encounter Diagnosis Start Date Code Code Sys tem Tear of lateral meniscus of knee 11/21/2022 [id number] 1 [employer] Personal Care Team Section Performer Name Performer Role Active Date Inactive Da te Imaging Narrative Notes
--- OUTSIDE RECORDS SUMMARY | 2024-12-02 13:51 | XMS_ITS | Encounter Summary ---
Author Organization [facility] Address [address] [place] [address] Phone Care Team Providers Care Auto Fleet Manager Name Role Phone Milly Cordoba MD Primary Care Provider + [phone] Lisa Nance APRN, MANUSCRIPT READER Unavailable + [phone] Andrzej Kelsey MD Unavailable [phone] Reason for Visit * Reason Onset Date Comments Medication Refill Prior Authorization 02/17/2024 dexcom Encounter Details Date Type Department Care Team (Late st Contact Info) Description 02/17/2024 Refill [facility] - Primary Care - [place] [address] [place] [address] Milly Cordoba MD [address] [place] [address] Medication Refill; Prior Authorization (dexcom) Social History Tobacco Use Types Packs/Day Years Used Date Smoking Tobacco: Former Cigarettes Q uit: 12/12/1982 Passive Smoke Exposure: Never Smokeless Tobacco: Never Alcohol Use Standard Drinks/Week Comments Not Currently 0 (1 standard drink = 0.6 oz pur e alcohol) [facility] Utilities Answer Date Recorded In the past 12 months has [employer], gas, oil, or water [employer] threatened to shut off services in your home? No 01/28/2024 Social Connection and Isolat ion Panel [NHANES] Answer Date Recorded In a typical week, how many times do you talk on the phone with family, friends, or neighbors? More than three times a week 01/28/2024 How often do you get togethe r with friends or relatives? More than three times a week 01/28/2024 How often do you attend chur ch or latter day services? Never 01/28/2024 Do you belong to any clubs o r organizations such as adventism groups, unions, fraternal or athletic groups, or school groups? No 01/28/2024 How often do you attend meet ings of the clubs or organizations you belong to? Never 01/28/2024 Are you , , di vorced, , never , or living with a partner? 01/28/2024 AUDIT-C Answer Date Recorded Q1: How often do you have a drink containing alcohol? Never 01/28/2024 Q2: How many drinks containi ng alcohol do you have on a typical day when you are drinking? Patient does not drink Q3: How often do you have si x or more drinks on one occasion? Never 01/28/2024 Overall Financial Resource Strain (CARDIA) Answe r Date Recorded How hard is it for you to pa y for the very basics like food, housing, medical care, and heating? Not very hard 01/28/2024 [facility] - Occupational Stress Questionnaire Answer Date Recorded Do you feel stress - tense, restless, nervous, or anxious, or unable to sleep at night because your mind is troubled all the time - these days? Very much 01/28/2024 Exercise Vital Sign Answer Date Recorde d On average, how many days pe r week do you engage in moderate to strenuous exercise (like a brisk walk)? 7 days 01/28/2024 On average, how many minutes do you engage in exercise at this level? 150+ min 01/28/2024 Hunger Vital Sign Answer Date Recorded Within the past 12 months, y ou worried that your food would run out before you got the money to buy more. Never true 01/28/20 24 Within the past 12 months, t he food you bought just didn't last and you didn't have money to get more. Never true 01/28/2024 PRAPARE - Transportation Answer Date Re corded In the past 12 months, has l ack of transportation kept you from medical appointments or from getting medications? No 12/31 In the past 12 months, has l ack of transportation kept you from meetings, work, or from getting things needed for daily living? No 01/28/2024 Housing Stability Vital Sign Answer [...] place to sleep or slept in a prison (including now)? No 01/28/2024 Comments No Sex and Gender Information Value Date Recorded Sex Assigned at Not on file Legal Sex Female 1:38 PM CDT Gender Identity Not on file Sexual Orientation Not on file documented as of this encounter Miscellaneous Notes * Telephone Encounter - Morgan Sparks RN - 02/17/2024 4:40 PM CDT Medication(s) refilled and signed per [facility] Chronic Medication Refill Standing Order for Pediatricand Adult Patients. Requested Prescriptions Pending Prescriptions Disp Refills Continuous Glucose Sensor (Dexcom G7 Sensor) Misc [Pharmacy Med Name: Dexcom G7 Sensor device] 3 Each 2 Sig: CHANGE sensor EVERY 10 DAYS Diabetic Supplies Protocol Passed - 02/17/2024 4:36 PM Passed - Visit with relevant provider in past 6 months Recent Visits Date Type Provider Dept 02/02/24 Telemedicine Milly Cordoba MD [facility] 12/09/23 Office Visit Milly Cordoba MD [facility] Showing recent visits within past 182 days and meeting all other requirements Future Appointments Date Type Provider Dept 03/09/24 Appointment Milly Cordoba MD [facility] Showing future appointments within next 90 days and meeting all other requirements documented in this encounter Plan of Treatment Not on file documented as of this encounter Visit Diagnoses Not on filedocumented in this encounter Care Teams Auto Fleet Manager Relationship Specialty Start Date End Date Milly Cordoba MD [address] [place] [address] PCP - General Family Medicine 12/09/23 Lisa Nance APRN, MANUSCRIPT READER [address] [place] [address] Nurse Practitioner Advanced Practice Nurse 01/19/24 08/03/24 Andrzej Kelsey MD [address] [facility] [address] [place] [address] Consulting Physician General Surgery 03/25/24 documented as of this encounter
--- NOTE | 2024-12-02 15:02 | ECG_ITS ---
Test Date: 2024-12-02 15:16:18 Measurements Intervals Riley Rate: 68 P: 62 WV: 168 QRS: 5 QRSD: 104 T: 9 QT: 377 QTc: 404 Interpretive Statements SINUS RHYTHM WITH OCCASIONAL SUPRAVENTRICULAR PREMATURE COMPLEXES DELAYED PRECORDIAL R/S TRANSITION MINIMAL Q WAVES- HIGH LATERAL LEADS BASELINE ARTIFACT- I, III, AVR, AVL, AVF BORDERLINE ECG No previous ECG available for comparison Electronically Signed On 12-02-2024 15:58:23 CDT by Matteo Avila D.O.
[2024-12-02 15:26] LABS: Hematocrit 37.1 % (37.0-47.0); Hemoglobin 12.2 g/dL (12.0-15.0); Mean Corpuscular HGB Conc 32.9 g/dl (32-36); Mean Corpuscular Hemoglobin 29.2 pg (26-34); Mean Corpuscular Volume 88.8 fl (80-100); Mean Platelet Volume 10.3 fl (7.4-10.4); Platelet Count Result 245 k/mm3 (150-375); Red Blood Count 4.18 M/mm3 (4.2-5.4); Red Cell Distribution Width 16.5 % (11.5-14.5); White Blood Count 6.3 K/mm3 (4.5-10.0)
[2024-12-02 15:34] LABS: Add Urine Microscopic? YES; Appearance Urine Clear (Clear); Bacteria Urine None Seen /hpf; Bilirubin Urine Negative (Negative); Blood Urine Negative (Negative); Color Urine Dark Yellow (Yellow); Glucose Urine UA Negative (Negative); Ketones Urine Trace mg/dL (Negative); Leukocyte Esterase Ur Negative LEU/UL (Negative); Nitrate Urine Negative (Negative); Non Pathogenic Casts 0-2; Protein Urine 1+ mg/dL (Negative); Specific Grav Ur 1.038 (1.001-1.035); Squamous Epithelial Cell Urine None Seen /hpf (Few); WBC Urine 0-5 /hpf (0-3); pH Urine 5.5 (5.0-9.0)
[2024-12-02 15:43] LABS: Anion Gap 7 mmol/L (4-12); Blood Urea Nitrogen 14 mg/dL (7-17); Carbon Dioxide 30 mmol/L (22-30); Chloride 105 mmol/L (98-107); Estimated Glomerular Filt Rate > 60; Glucose 120 mg/dL (65-110); Sodium 142 mmol/L (137-145)
[2024-12-02 15:45] LABS: INR 0.9; Prothrombin Time 12.9 Seconds (11.1-14.7)
[2024-12-02 15:46] LABS: Partial Thromboplastin Time 32.5 Seconds (22.3-36.8)
[2024-12-02 16:42] LABS: Valproic Acid 49.8 ug/mL (50-120)
== END 2024-12-02 13:25 | disposition home or self-care (01) ==
LOC: ANHSURGERY 13:27
PROVIDERS: Anesthesiology; PCP Physician Assistant; Visit Provider Neurological Surgery
DX: G40.909 Epilepsy, unspecified, not intractable, without status epilepticus (principal); M50.20 Other cervical disc displacement, unspecified cervical region; Z01.818 Encounter for other preprocedural examination; R94.31 Abnormal electrocardiogram [ECG] [EKG]
CPT/HCPCS: 36415; 80048; 80164; 81001; 85027; 85610; 85730; 86850; 86880; 86900; 86901; 86902; 86922; 93005

== ENCOUNTER 2024-12-14 02:15 | Day surgery (SDC) | payer MEDICAID, SELFPAY ==
--- NOTE | 2024-12-02 13:48 | PC.NURSE ---
Report to the Outpatient Waiting Room, entrance under the green pavilion located off [facility], at time __10:30am on date ___12/14/24____. Planned Procedure Time: __12:30pm .? Time changes happen often and if your time is changed the preop area will call you the afternoon before. - You and your visitor will be asked to self-screen and do not enter if you have any COVID symptoms. Please call surgeon if you need to reschedule. - A mask is optional within the hospital at this time. Patients may have clear liquids (water, carbonated beverages, clear teas, apple juice) until 3 hours prior to surgery (9:30am) with a maximum of 20 ounces. - No food from midnight until time of surgery and no smoking, or chewing tobacco (or any form of nicotine). No chewing gum, candy or mints. Take only the following medications with a SIP of water on the morning of surgery: ___AMLODIPINE, DIVALPROEX. MAY TAKE HYDROCODONE & ONDANSETRON NEEDED DO NOT STOP ANY OF YOUR OTHER PRESCRIPTION MEDICATIONS PRIOR TO SURGERY EXCEPT THE FOLLOWING Hold all vitamins and supplements for 3 days per anesthesiologist.- LAST DOSE -12/10/24. Medications to discontinue per physician __HOLD ASPIRIN PER DR VALDERRAMA. Please no make-up, nail czech, hairspray, perfume, deodorant, or body powder the day of surgery.? No jewelry (including any body piercings) or valuables the day of surgery, leave them at home.? Please take a shower or bath the night before, or the morning of, surgery with an antibacterial soap.? Wear comfortable, loose fitting clothing.? - Jewelry must be removed prior to entering the operating room.? Rings and piercings that are not removed may be cut off. - The hospital will not accept responsibility for valuables.? - Please leave all valuables, including medications, at home the day of surgery. If you are going home after surgery, a licensed hook up driver must drive you home.? - NO public transportation without another adult if you receive anesthesia. - We recommend that an adult stay with you for 24 hours following discharge. - We also recommend that you do not drive, make important decision, drink alcoholic beverages, or take any drugs that were not prescribed by your health care provider for at least 24 hours after your discharge time. Follow any additional instructions given to you from your surgeon. Telephone instructions given to ____PATIENT and asked if any additional questions and then verbalized understanding. Patient advised to call surgeon office or pre surgery nurse liaison [phone] if any additional questions.
[2024-12-02 14:09] VITALS: BP 153/76; PULSE 86; RESP 16; TEMP 37.2; O2SAT 99; BMI 32.5
[2024-12-14] VITALS (8 sets, daily range): BP systolic 125–164; BP diastolic 55–77; PULSE 71–98; RESP 12–19; TEMP 36.1–36.3; O2SAT 95–100
--- NOTE | ~2024-12-14 | XR_ITS ---
INTRAOPERATIVE FLUOROSCOPY: CLINICAL HISTORY: 54 years old Female; C5-6 CERVICAL DISCECTOMY AND FUSION PROCEDURE COMMENTS: Limited intraoperative fluoroscopy of the cervical spine was performed. CUMULATIVE DOSE: 1.7 mGy FLUOROSCOPY TIME: 4.8 seconds FINDINGS/IMPRESSION: Please refer to operative note for further details. Reviewed, dictated and finalized at location A.
--- OUTSIDE RECORDS SUMMARY | 2024-12-14 02:21 | XMS_ITS | Encounter Summary ---
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 Gender Identity Female 03/20/2020 10:25 PM CDT Sexual Orientation Straight 03/20/2020 10 :25 PM CDT 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
--- OUTSIDE RECORDS SUMMARY | 2024-12-14 02:21 | XMS_ITS | Clinical Summary ---
Author Organization [facility] Address [address] [place] [address] Phone Care Team Providers Care Seasoner Hand Name Role Phone Milly Cordoba MD Primary Care Provider [phone] Allergies Active Allergy Reactions Criticality Noted Date [...] of 3 - 19+ 3-dose series) 1991 FIT-DNA Q 3 years 2017 FIT/FOBT Q [...] Colorectal Cancer Screening 01/05/2032 Insurance Care Teams Seasoner Hand Relationship Specialty Start Date End Date Milly Cordoba MD PCP - General Family Practice 01/14/24
--- OUTSIDE RECORDS SUMMARY | 2024-12-14 02:21 | XMS_ITS | Clinical Summary ---
Author Organization [facility] [employer] Address [facility] [facility] [place] [address] Care Team Providers Care Environmental Assistant Name Role Phone Milly Cordoba MD Primary Care Provider [phone] Source Comments [facility] [employer],non-owned Affiliates and Associated Physician Practices is amultiple site organization consisting of ambulatory clinics and hospital sitesin [place], [place], [place] and [place]. This disclosure is being madepursuant to the Care Everywhere program and may not contain all information available regarding this patient. Last updated 18.[facility] [employer] Allergies Active Allergy Reactions Criticality Noted Date [...] document. Alwaysverify current medications with the patient. 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 MT (myocardial infarction) 08/23/2020 Overview (08/23/2020): Overview: TIMES 2 Chronic bilateral low back pain 08/19/2020 Overview (01/16/2021): Last Assessment & Plan: Seeing pain management, but needing new referral to provider closer to home. Will refer. I will manage her pain meds in the interim. History of fundoplication 02/28/2020 Overview (01/16/2021): Added automatically from request for surgery [id number] Chronic pain of both knees 12/28/2019 Overview [...] Cont zetia Coronary artery disease invo lving [place] coronary artery of [place] heart without angina pectoris 06/09/2018 Overview (01/16/2021): Last Assessment & Plan: On Plavix - h/o stenting and recent MT x 2 Immunizations Immunization Administration Dates Next Due INFLUENZA VACCINE 06/30/2019 [...] = 0.6 oz pur e alcohol) once/month Comments No Sex and Gender Information Value Date Recorded Sex Assigned at Not on file Legal Sex Female 9:56 AM CDT Gender Identity Not on file Sexual Orientation Not on file 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 Not on file Not [...] this topic Medical Devices Implanted Type Area Outreach Analyst Device Identifier Shelf Expiration Date Model / Serial / Lot Xience Stent Stent - Vascular Bioinductive Implant With Arthroscopic Delivery System Implanted:Qty: 1 on 01/01/2021 by Jordy Grewal MD at [facility] Left: Shoulder 08/22/2023 [id number] / / [id number] Description:MM Tendon Anchors Implanted:Qty: 1 on 01/01/2021 by Jordy Grewal MD at [facility] Left: Shoulder 06/26/2023 2504-1 / / [id number] Description:MM Bone Anchors Implanted:Qty: 1 on 01/01/2021 by Jordy Grewla MD at [facility] Left: Shoulder 10/17/2022 [id number] / / [id number] Description:MM Tendon Anchors Implanted:Qty: 1 on 01/01/2021 by Jordy Grewal MD at [facility] Left: Shoulder 10/13/2023 2504-1 / / [id number] Description:MM Procedures Procedure Name Priority Date/Time Associated Diagnosis Comments BASIC METABOLIC PANEL (CALCIUM TOTAL) AM Draw 12/18/2018 2:48 AM CDT Gastroesophageal reflux disease without esophagitis ENDOSCOPY, COLON, SCREENING Routine 10/02/2018 from Last 3 Months or Most Recently Relevant to Health Maintenance Results * (ABNORMAL) BASIC METABOLIC PANEL (CALCIUM TOTAL) (12/18/2018 2:48 AM CDT) Glucose 95 74 - 106 mg/dL 12/18/2018 3:50 AM CDT [facility] Sodium 139 136 - 145 mmol/L 12/18/2018 3:50 AM CDT [facility] Potassium 3.6 3.5 - 5.1 mmol/L 12/18/2018 3:50 AM CDT [facility] Chloride 106 98 - 107 mmol/L 12/18/2018 3:50 AM CDT [facility] CO2 28 22 - 31 mmol/L 12/18/2018 3:50 AM CDT [facility] Calcium 8.0(L) 8.5 - 10.1 mg/dL 12/18/2018 3:50 AM CDT [facility] Anion Gap 5(L) 8 - 16 mmol/L 12/18/2018 3:50 AM CDT [facility] BUN 10 7 - 21 mg/dL 12/18/2018 3:50 AM CDT [facility] Creatinine 0.74 0.50 - 1.30 mg/dL 12/18/2018 3:50 AM CDT [facility] eGFR by MDRD >60 >60 mL/min/1.7 3m2 12/18/2018 3:50 AM CDT [facility] eGFR by MDRD >60 >60 mL/min/1.7 3m2 12/18/2018 3:50 AM CDT [facility] Blood BLOOD SPECIMEN / Unknown Lab Venipuncture / Unknown 12/18/2018 2:48 AM CDT 12/18/2018 3:09 AM CDT us Shelton Azevedo MD LAB - CHEMISTRY ORDERABLES F inal Result [facility] [address] [place] [address] * ENDOSCOPY, COLON, SCREENING (10/02/2018) us Scanned Document GI PROCEDURE ORDERABLES Final R esult from Last 3 Months or Most Recently Relevant to Health Maintenance Insurance MEDICAID [place] [facility] [place] [address] [place] [address] Advance Directives * Full Code (Latest Code Status on File) Date Activated Date Inactivated Comments 12/17/2018 10:40 AM 12/18/2018 3:52 PM Care Teams Environmental Assistant Relationship Specialty Start Date End Date Milly Cordoba MD [address] [place] [phone] PCP - General 03/13/21
--- OUTSIDE RECORDS SUMMARY | 2024-12-14 02:21 | XMS_ITS | Encounter Summary ---
Author Organization [facility] Address [address] [place] [address] Care Team Providers Care Drying Oven Attendant Name Role Phone Garcia Bennett MD Unavailable [phone] Milly Cordoba MD Primary Care Provider [phone] Vesna Garza MD Primary Care Provider [phone] Milly Cordoba MD Primary Care Provider [phone] Encounter Details Date Type Department Care Team (Late st Contact Info) Description 09/08/2019 Hospital Follow-up Call [facility] [place] [address] Peg Mendosa Social History Tobacco [...] on file 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 Answer Date of Assessment Author Status No 09/07/2019 12:45 AM CARBON BLOCKS PRESS OPERATOR Acti ve * Do you have serious [...] on filedocumented in this encounter Care Teams Drying Oven Attendant Relationship Specialty Start Date End Date Milly Cordoba MD [address] [place] [address] PCP - General FAMILY PRACTICE 08/15/18 09/29/19 Vesna Garza MD [address] [place] [address] PCP - General FAMILY PRACTICE 09/30/19 03/19/24 Milly Cordoba MD [address] [place] [phone] PCP - General FAMILY PRACTICE 03/20/24 Garcia Bennett MD [address] [address] [employer] Solar Sales Rep CARDIOVASCULAR DISEASE 01/21/18 documented as of this encounter
--- OUTSIDE RECORDS SUMMARY | 2024-12-14 02:21 | XMS_ITS | Encounter Summary ---
Author Organization [facility] Address [facility] [place] [address] Care Team Providers Care Kitchen Porter Name Role Phone Milly Cordoba MD Primary Care Provider [phone] Patricia Nichols Primary Care Provider [phone] Milly Cordoba MD Primary Care Provider [phone] Vesna Parry MD Primary Care Provider [phone] Patricia Nichols Primary Care Provider [phone] Milly Cordoba MD Primary Care Provider [phone] Encounter Details Date Type Department Care Team (Late st Contact Info) Description 12/14/2019 Telephone [facility] [address] [place] [phone] Isabelle Caldera, RN Social History Tobacco Use [...] on filedocumented in this encounter Care Teams Kitchen Porter Relationship Specialty Start Date End Date Milly Cordoba MD [address] [place] [phone] PCP - General Family Medicine 10/27/18 12/04/20 Patricia Nichols PA [address] [facility] [address] [place] [phone] PCP - General Physician Order To Delivery Supervisor 12/05/20 12/24/20 Milly Cordoba MD [address] [place] [phone] PCP - General 12/25/20 12/28/20 Vesna Parry MD [address] [facility] [address] [place] [phone] PCP - General Family Medicine 12/29/20 01/10/21 Patricia Nichols PA [address] [facility] [address] [place] [phone] PCP - General 01/11/21 03/12/21 Milly Cordoba MD [address] [place] [phone] PCP - General 03/13/21 documented as of this encounter
--- OUTSIDE RECORDS SUMMARY | 2024-12-14 02:21 | XMS_ITS | Encounter Summary ---
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 [address] [address] [employer] Engineer And Geologist CARDIOVASCULAR DISEASE 01/21/18 documented as of this encounter
--- OUTSIDE RECORDS SUMMARY | 2024-12-14 02:21 | XMS_ITS | Encounter Summary ---
Author Organization [facility] Healthcare Address [address] [place] [address] Care Team Providers Care Cavity Pump Operator Name Role Phone Lele Millan DO Unavailable [phone] Patricia Nichols Primary Care Provider + Encounter Details Date Type Department Care Team (Late st Contact Info) Description 11/09/2024 Results Follow-Up [facility] Medical Group Family Medicine [address] [phone] Patricia Nichols PA [address] [place] [address] Social History Tobacco Use Types [...] on file Legal Sex Female 9:12 PM MULTI SKILLED OPERATOR Gender Identity Female 03/20/2020 10:25 PM CDT Sexual Orientation Straight 03/20/2020 10 :25 PM CDT 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
--- OUTSIDE RECORDS SUMMARY | 2024-12-14 02:22 | XMS_ITS | Clinical Summary ---
Author Organization [facility] Center Address [address] [place] [address] Care Team Providers Care Software Applications Engineer Name Role Phone Lele Millan DO Unavailable [phone] Patricia Nichols Primary Care Provider + [...] needed for nausea or vomiting 40 tablet 06/27/20 22 Active nitroglycerin (NITROSTAT) 0.[address] 1 tablet (0.4 mg total) under the tongue every 5 (five) minutes as needed for chest pain 25 tablet 1 03/20/20 23 Active blood-glucose meter,continu ous (Dexcom G7 Credit Risk Analyst) misc Use as directed 1 each 3 11/11/19 24 Active ergocalcifero l (VITAMIN D) 50,000 unit capsule Take 1 capsule (50,000 Units total) by mouth once a week Active tirzepatide (Mounjaro) 2.5 mg/0.5 mL pen injectorIndic ations:Type 2 diabetes mellitus without complication, without long-term current use of insulin (HCC) Inject 2.5mg subcutaneously every 10 days 07/14/20 24 Active Additional Information Patient taking differently: Per patient currently taking 7.5 mg once weekly, Reported on 11/11/2024 meclizine (ANTIVERT) 12.5 mg tabletIndicat ions:Vertigo Take 1 tablet (12.5 mg total) by mouth 3 (three) times a day as needed for dizziness 20 tablet 07/14/20 24 Active Additional Information Patient not taking.Reported on 11/11/2024 senna-docusat e (PERICOLACE) 8.6-50 mg Take 1 tablet by mouth 2 (two) times a day as needed for constipation 30 tablet 07/26/20 24 Active Additional Information Patient not taking.Reported on 11/11/2024 oxyCODONE-mohsen taminophen (PERCOCET) 5-325 mg per tabletIndicat ions:Pain Take 1 tablet by mouth every 4 (four) hours as needed for pain May take 2 tablets prior to wound vac change once daily PRN; max 7 pills/day 40 tablet 08/12/20 24 Active Additional Information Patient not taking.Reported on 11/11/2024 famotidine (PEPCID) 20 mg tablet Take 1 tablet (20 mg total) by mouth 2 (two) times a day Active divalproex ER (DEPAKOTE ER) 500 mg 24 hr tablet Take 1 tablet (500 mg total) by mouth daily 90 tablet 3 10/13/19 25 2025 Active butalbital-ac etaminophen-c affeine (ESGIC) 50-325-40 mg per tablet Take 1 tablet by mouth daily as needed 10/28/19 Active HYDROcodone-a cetaminophen (NORCO) 5-325 mg per tablet TAKE ONE TABLET BY MOUTH FIVE TIMES DAILY 10/28/19 Active amLODIPine (NORVASC) 5 mg tablet Take 1 tablet (5 mg total) by mouth daily Active empagliflozin (JARDIANCE) 25 mg tabletIndicat ions:Type 2 diabetes mellitus without complication, without long-term current use of insulin (HCC) Take 1 tablet (25 mg total) by mouth daily 30 tablet 5 11/12/19 Active evolocumab (Repatha SureClick) 140 mg/mL pen injectorIndic ations:Dyslip idemia,[place] artery disease involving [place] coronary artery of [place] heart without angina pectoris Inject 1 mL (140 mg total) under the skin every 14 (fourteen) days 2 mL 5 11/12/19 Active Dexcom G7 Sensor device CHANGE EVERY 10 DAYS 3 each 2 11/24/19 25 Active blood-glucose sensor (Dexcom G7 Sensor) device Change every 10 days 3 each 2 07/19/20 24 2024 Discontinued Active Problems Problem Noted Date Diagnosed Date Abdominal wall seroma, sequela 07/24/2024 Assessment & Plan (07/26/2024 11:36 AM FIELD REP): Patient is status post wound exploration and [...] 07/02/2023 Assessment & Plan (07/29/2023 2:16 PM FIELD REP): Worsening symptoms with severe spinal stenosis Refer [...] medication. 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 The patient was seen by the emergency room as well as by the occupational medicine physician at [facility] and physician clinical assistant professor Shalonda on November 09, 2021 without any [...] 09/26/2020 Assessment & Plan (09/12/2022 2:30 PM FIELD REP): Cannot take statins Was on Repatha/praluent per cardiology Assessment & Plan (04/16/2021 2:23 PM CDT): On Repatha Assessment & Plan (09/26/2020 12:43 PM FIELD REP): Seeing cardiology now - working on approval for injectable meds - Praluent or Repatha. Chronic pelvic pain in female 09/26/2020 Assessment & Plan (09/26/2020 12:50 PM FIELD REP): Refer to new pain management Opal TOMLIN Other chronic pain 08/19/2020 Assessment & Plan (08/17/2024 8:54 AM FIELD REP): Chronic pain related to recurrent abdominal hernia (postop exploratory surgery), chronic low back pain, chronic thoracic back pain, chronic neck pain, pain of multiple joints - Following with general surgeon, Dr. Santos. Established patient of Dr. Bobo, spinal surgeon Previously patient of Dr. Jackson, pain management Discussed with patient today the complexity of her pain and need for comprehensive treatment plan with a hand painter. We want to prioritize non- opioid options [...] plan. Assessment & Plan (07/14/2024 11:58 AM FIELD REP): Patient feels the 7.5mg norco is too strong now. Wanting to back off - has about a week's worth left. She will try cutting in half and potentially decreasing to 5/325mg with next refill. Assessment & Plan (05/14/2023 11:53 AM CDT): Chronic, worse in the last 5 days No improvement with [place] and Flexeril Allergy to NSAIDs Recommend OTC [...] norco Assessment & Plan (09/26/2020 12:49 PM FIELD REP): Seeing pain management, but needing new referral to provider closer to home. Will refer. I will manage her pain meds in the interim. Assessment & Plan (08/19/2020 5:42 PM FIELD REP): Stable Cont [place] per pain management S/P right knee arthroscopy 02/28/2020 Overview (02/28/2020): Added automatically from request for surgery [id number] Chronic pain of both shoulders 12/28/2019 Assessment & Plan (07/14/2024 11:58 AM FIELD REP): Patient feels the 7.5mg norco is too [...] 12/28/2019 Assessment & Plan (09/26/2020 12:51 PM FIELD REP): [place] PRN New pain management referral Assessment & [...] 12/13/2019 Assessment & Plan (09/26/2020 12:50 PM FIELD REP): Refer to new pain management in this area Assessment & Plan (02/01/2020 6:13 AM CDT): New Order flector patch Order PT Chronic bilateral thoracic back pain 12/13/2019 Assessment & Plan (07/14/2024 11:58 AM FIELD REP): Patient feels the 7.5mg norco is too [...] & Plan (04/16/2021 2:23 PM CDT): Stable AR (myocardial infarction) 09/16/2019 Overview (09/16/2019): TIMES 2 Assessment & Plan (09/16/2019 3:59 PM FIELD REP): 2 back to back AR's age 47 - on Plavix, h/o coronary stenting CHRISTIANNE (generalized anxiety disorder) 09/16/2019 Assessment & Plan (09/16/2019 4:00 PM FIELD REP): Try Buspar Meds failed prior: Lexapro, Celexa, Zoloft, diazepam Vitamin D deficiency 09/16/2019 Assessment & Plan (11/11/2024 2:10 PM CDT): Recheck Vitamin D levels Orders: Comprehensive metabolic panel; Future Lipid panel; Future Hemoglobin A1c; Future Albumin Creatinine Ratio, Urine; Future Vitamin D 25 hydroxy; Future Assessment & Plan (07/29/2023 10:47 AM FIELD REP): Chronic Stable Cont vitamin d Assessment & Plan (09/12/2022 2:28 PM FIELD REP): Stable, no changes. Continue current regimen with supplement Assessment & Plan (02/15/2021 10:22 AM CDT): Repeat levels Assessment & Plan (08/19/2020 5:42 PM FIELD REP): Stable Naturally controlled Assessment & Plan (10/07/2019 11:18 AM FIELD REP): Restart Vitamin D supplement, once weekly Assessment & Plan (09/16/2019 4:00 PM FIELD REP): Check levels Type 2 diabetes mellitus wit [...] Start Jardiance 25mg dailiy - Refer to tennis professional for further management. - May need to [...] Future Assessment & Plan (07/14/2024 11:57 AM FIELD REP): Some hypoglycemia. Decrease frequency of mounjaro injection [...] reviewed Assessment & Plan (07/29/2023 2:14 PM FIELD REP): Chronic Get updated labs Goal: hgba1c<6.5 Assessment & Plan (03/25/2023 9:55 AM CDT): Stop Trulicity Start Mounjaro - 2.5mg samples given 5mg dose sent to pharmacy to start in 4 weeks after finishes starting dose Follows with cardiology Eye exam - will get report Assessment & Plan (09/12/2022 2:29 PM FIELD REP): To get labs done Victoza not working [...] Farxiga Assessment & Plan (09/26/2020 12:49 PM FIELD REP): Stable, no changes. Continue current regimen with metformin. Will monitor glucose at home more closely. New meter/supplies sent to pharmacy. Will get report from eye exam. Taking Aspirin. Not on statin - intolerant. Seeing cardiology. No MOHSEN/ARB currently Assessment & Plan (08/19/2020 5:41 PM FIELD REP): Stable cont glucophage Assessment & Plan (01/25/2020 1:39 PM CDT): Order updated labs Cont metformin stable Assessment & Plan (09/16/2019 3:59 PM FIELD REP): Stable, no changes. Continue current regimen with metformin. A1c done while hospitalized well controlled 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 Gastroesophageal reflux disease without esophagi tis 12/17/2018 Assessment & Plan (08/17/2024 8:55 AM FIELD REP): Chronic, not well controlled Pt experienced side effects with famotidine that resolved once she discontinued medication GERD still not well controlled - having daily heartburn/reflux symptoms She did well with pantoprazole in the past, but just felt it lost its effectiveness after a while Restart pantoprazole 40mg daily Assessment & Plan (08/19/2020 5:42 PM FIELD REP): Stable Cont protonix Essential hypertension 06/09/2018 Assessment & Plan (07/14/2024 11:59 AM FIELD REP): Chronic, uncontrolled Not currently BP meds, has been in the past Under a lot of stress, pain Monitor BP at home and bring log back in 2 weeks. Assessment & Plan (07/29/2023 2:14 PM FIELD REP): Chronic Cont amlodipine Goal: SBP<140, DBP<90 Assessment & Plan (11/18/2022 1:18 PM CDT): Uncontrolled BP improved in office with 1 dose of clonidine 0.1mg Start amlodipine 5mg daily and close monitoring of BP - allergy to lisinopril in the past. Assessment & Plan (09/12/2022 2:29 PM FIELD REP): Stable Assessment & Plan (03/12/2022 7:12 PM CDT): No meds currently Will monitor at home and report back with readings Assessment & Plan (04/16/2021 2:23 PM CDT): Stable Assessment & Plan (09/16/2019 4:00 PM FIELD REP): Stable without meds Dyslipidemia 06/09/2018 Assessment & [...] cardiology Assessment & Plan (09/12/2022 2:29 PM FIELD REP): Due for labs Seeing cardiology in the past Statin intolerant Assessment & Plan (08/19/2020 5:41 PM FIELD REP): Uncontrolled Add fish oil Cont zetia Assessment & Plan (09/16/2019 3:59 PM FIELD REP): Stable, no changes. Continue current regimen with statin Coronary artery disease invo lving [place] coronary artery of [place] heart without angina pectoris 06/09/2018 Assessment & Plan (11/11/2024 2:10 PM CDT): Chronic Following with cardiology Continue Repatha Orders: evolocumab (Repatha SureClick) 140 mg/mL pen injector; Inject 1 mL (140 mg total) under the skin every 14 (fourteen) days Assessment & Plan (06/10/2024 9:05 AM CDT): Chronic condition. Patient does not currently follow with cardiology. Referral placed Assessment & Plan (09/16/2019 3:58 PM FIELD REP): On Plavix - h/o stenting and recent AR x 2 Tobacco abuse counseling 06/09/2018 Resolved [...] (05/08/2022): Added automatically from request for surgery [id number] Visit for suture removal 03/15/2022 Sprain of [...] 03/15/2021 Assessment & Plan (09/26/2020 12:50 PM FIELD REP): [place] PRN Seeing ortho Doing PT Assessment & Plan (08/19/2020 5:42 PM FIELD REP): Worsening Unable to tolerate PT Refer to [...] 02/05/2020 Assessment & Plan (09/16/2019 4:04 PM FIELD REP): Flaco fundiplication in November 2018 - still with reflux type symptoms To try Protonix Likely contributing to her symptoms Fracture of phalanx of finger 09/12/2019 06/10/2024 Claudication 09/15/2018 09/16/2019 Seizure 09/14/2018 09/26/2020 Encounters Date Type Department Care Team Description 11/11/2024 2:00 PM CDT Telemedicine [facility] [address] [place] [phone] Patricia Nichols PA Type 2 diabetes mellitus without complication, without long-term current use of insulin (HCC) (Primary Dx); Vitamin D deficiency; Dyslipidemia; Coronary artery disease involving [place] coronary artery of [place] heart without angina pectoris 11/11/2024 Nurse Triage [facility] [address] [place] [phone] Milly Carlin RN 11/09/2024 1:59 PM CDT - 11/09/2024 11:59 PM CDT Hospital Encounter [facility] Breast Imaging [address] [place] [address] Encounter for screening mammogram for malignant neoplasm of breast Discharge Disposition: Discharge to home or self care 11/09/2024 Results Follow-Up [facility] Medicine [address] [place] [phone] Patricia Nichols PA 10/18/2024 Results Follow-Up [facility] Neurology [address] [place] [address] [place] [phone] Sarah Rodriguez NP 10/13/2024 11:00 AM FIELD REP Lab [facility] Medical Office Bld[address] OP [address] [place] [address] [address] [place] [address] Medication monitoring encounter; Paresthesia of skin 10/13/2024 10:00 AM FIELD REP Office Visit [facility] [address] [place] [phone] Sarah Rodriguez NP Nonintractable epilepsy without status epilepticus, unspecified epilepsy type (HCC) (Primary Dx); Paresthesia of skin; Medication monitoring encounter 10/08/2024 Letter (Out) [facility] Medicine [address] [place] [phone] 10/08/[address] [phone] Patricia Nichols PA Test Results 10/07/2024 11:11 AM FIELD REP - 10/07/2024 11:59 PM FIELD REP Hospital Encounter [address] [address] Chronic bilateral thoracic back pain Discharge Disposition: Discharge to home or self care 10/07/2024 11:10 AM FIELD REP - 10/07/2024 11:59 PM FIELD REP Hospital Encounter [address] [phone] Dizziness; Paresthesias; Persistent headaches Discharge Disposition: Discharge to home or self care 10/01/2024 9:00 AM FIELD REP Office Visit [facility] Medicine [address] [place] [phone] Patricia Nichols PA Abdominal wall seroma, sequela [...] (coronary artery disease) 2017 st ates 2 AR's with stents History of colon polyps DM type 2 (diabetes mellitus , type 2) (HCC) Seizure disorder (HCC) last ~25 yrs. 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 Not on file Not on file 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 Not on file Not on file Not on file Obstetrics History Para Term AB IAB SAB Ectopic Multiple Livin g Live Births 2 Date Outcome GA Total Labor Labor/2nd/3rd Weight Sex Type Anes PTL Clarita A1 A5 Name Clin Last Filed Vital Signs Vital Sign Reading Time Taken Comments Blood Pressure 140/80 10/13/2024 9:41 AM FIELD REP Pulse 101 10/13/2024 9:41 AM FIELD REP Temperature 36.5 C (97.7 F) 10/01/2024 9:20 AM FIELD REP Respiratory Rate 20 10/13/2024 9:41 AM FIELD REP Oxygen Saturation 98% 10/13/2024 9:41 AM FIELD REP Inhaled Oxygen Concentration - - Weight 83.9 kg (185 lb) 10/13/2024 9:41 AM FIELD REP Height 167.6 cm (5' 6 ) 11/11/2024 2:07 PM CDT Body Mass Index 29.86 10/13/2024 9:41 AM FIELD REP Plan of Treatment Health Maintenance Due Date Last Done Comments Hepatitis C Screening 1972 DTaP/Tdap/Td Vaccine (1 - Tdap) 1983 Hepatitis B Screening 1990 Regular Well Visit/Exam 18-64 1990 Foot Exam 09/26/2021 09/26/2020 Zoster Vaccine (1 of 2) 2022 Covid-19 Vaccine (4 - 2023-2 5 season) 2024 09/05/2021, 03/05/2021, 02/05/2021 Albumin Creatinine Ratio, Urine 10/29/2024 10/29/2023, 09/23/2022, 09/05/2021 Lung Cancer Screening 12/22/2024 12/23/2023 Colon Cancer Screening-Colonoscopy 01/04/20252021 Lipid Panel 02/04/2025 02/05/2024, 10/03, 09/23/2022, Additional history exists Hemoglobin A1C 05/16/2025 11/13/2024, 10/0 05/2024, 10/29/2023, Additional history exists Dilated Eye Exam 07/19/2025 07/19/2024, 01/2024, 2020 eGFR 07/24/2025 07/24/2024, 07/03, 06/11/2024, Additional history exists Breast Cancer Screening-Mammogram 11/09/2025 11/09/2024, 05/26/2023, 05/26/2023, Additional history exists Depression Screening 11/11/2025 11/11/2024, 08/17/2024, 07/26/2024, Additional history exists Influenza Vaccine Completed 05/24/2024, , 06/01/2022, Additional history exists Pneumococcal vaccine <65 Completed 05/24/2024, 06/01 Medical Devices Implanted Type Area Scullion Chief Device Identifier Shelf Expiration Date Model / Serial / Lot [place] Bilateral: Pelvis Screws Right: Ankle Gallbadder Clip N/A: Bile Duct [employer] Internalbrace Fibertape Kit Arthroscopic Fixation Collagen Ar-1688-Cp - [id number] Implanted:Qty: 1 on 02/26/2022 by Lele Millan DO at [facility] Left: Ankle [employer] Inc [id number] 12/30/2023 AR-1688-C P / / [id number] Ar[employer]rex Inc Arthrex Dx Fibertak Needle [place] Suture Sterile Latex Free Ar-8990st - [id number] Implanted:Qty: 1 on 02/26/2022 by Lele Millan DO at [facility] Left: Ankle [employer] Inc [id number] 10/29/2026 AR-8990ST / / [id number] Ar[employer] Inc Arthrex Dx Fibertak Needle [place] Suture Sterile Latex Free Ar-8990st - [id number] Implanted:Qty: 1 on 02/26/2022 by Lele Millan DO at [facility] Left: Ankle [employer] Inc [id number] 10/29/2026 AR-8990ST / / [id number] Davol Inc/C R Bard Bard Marlex [id number] Monofilament Gold Standard Flat Sheet [id number] - [id number] Implanted:Qty: 1 on 12/26/2022 by Lewis Gagnon DO at [facility] N/A: Abdomen [employer]ol Inc/C R Bard [id number] 01/26/2027 [id number] / / [id number] Davol Inc/C R Bard Bard Marlex [id number] Monofilament Gold Standard Flat Sheet [id number] - [id number] Implanted:Qty: 1 on 06/11/2024 by Tirso Santos MD at [facility] N/A: Abdomen [employer]ol Inc/C R Bard 05/29/2028 [id number] / / [id number] Explanted Type Area Scullion Chief Device Identifier Shelf Expiration Date Model / Serial / Lot Ethicon Endo Surgery Vicryl [id number] Knit Woven Mesh Surgical Vkml - [id number] Explanted:Qty: 1 on 12/26/2022 by Lewis Gagnon DO at [facility] N/A: Abdomen Ethicon Endo Surgery [id number] 02/28/2026 [id number] / / [id number] Procedures Procedure Name Priority Date/Time Associated Diagnosis Comments SCREENING MAMMOGRAM BILATERAL W BAY Schedule Routine, Read Routine (OP Routine) 11/09/2024 2:14 PM CDT Encounter for screening mammogram for malignant neoplasm of breast VITAMIN B1 Routine 10/13/2024 2:01 PM FIELD REP TSH Routine 10/13/2024 10:30 AM FIELD REP Paresthesia of skin T4, FREE Routine 10/13/2024 10:30 AM FIELD REP Paresthesia of skin DAVID QUALITATIVE WITH REFLEX TO DAVID QUANTITATIVE Routine 10/13/2024 10:30 AM FIELD REP Paresthesia of skin ERYTHROCYTE SEDIMENTATION RATE Routine 10/13/2024 10:30 AM FIELD REP Paresthesia of skin VITAMIN B12 Routine 10/13/2024 10:30 AM FIELD REP Paresthesia of skin VALPROIC ACID LEVEL, TOTAL Routine 10/13/2024 10:30 AM FIELD REP Medication monitoring encounter MRI BRAIN W WO CONTRAST Schedule Routine, Read Routine (OP Routine) 10/07/2024 12:48 PM FIELD REP Dizziness Paresthesias Persistent headaches MRI THORACIC SPINE WO CONTRAST Schedule Routine, Read Routine (OP Routine) 10/07/2024 12:15 PM FIELD REP Chronic bilateral thoracic back pain EGFR Routine 07/24/2024 9:07 AM FIELD REP HM DIABETES EYE EXAM Routine 07/19/2024 HEMOGLOBIN A1C Routine 06/09/2024 12:33 PM CDT Preop testing LIPID PANEL Routine 10/29/2023 9:06 AM FIELD REP Essential hypertension Type 2 diabetes mellitus without complication, without long-term current use of insulin (HCC) ALBUMIN CREATININE RATIO, URINE Routine 10/29/2023 9:06 AM FIELD REP Type 2 diabetes mellitus without complication, without [...] age 40, based on guidelines of the [place] [employer] (ACR Practice Parameter for the Performance of Screening and Diagnostic Mammography) and [place] [employer]. For women [...] Result * Vitamin B1 (10/13/2024 2:01 PM FIELD REP) Thiamine (Vit B1) 108 70 - 180 nmol/L [place] [facility] Comment: ADDITIONAL INFORMATION This test was developed and its performance characteristics determined by [facility] in a manner consistent with CLIA requirements. This test has not been cleared or approved by the U.S. Food and Drug Administration. Test Performed by: [facility] - [facility] [address] [place] [address] Manager Photo: Nisha Michelle Ph.D.; CLIA# [id number] Blood 10/13/2024 2:01 PM FIELD REP 10/13/2024 4:10 PM FIELD REP Sarah Rodriguez HEALTH AND WELLNESS COORDINATOR LAB BLOOD ORDERABLES Final Result Performing Organization Address [facility] de Phone Number SHAHAB [address] [place] [address] [place] [facility] * DAVID ab ql w/rflx to DAVID qn (10/13/2024 10:30 AM FIELD REP) DAVID Negative Comment: Interpretive Data Normal range [...] last revised on 2020. Testing performed by: [facility], [address] [facility] [place]., [address] Blood 10/13/2024 10:3 0 AM FIELD REP 10/13/2024 3:00 PM FIELD REP Sarah Rodriguez NP LAB BLOOD ORDERABLES Final Result Performing Organization Address [facility] Co de Phone Number SHAHAB [address] [facility] [place], [place] [id number] * Erythrocyte sedimentation rate (10/13/2024 10:30 AM FIELD REP) Pathologist [facility] Erythrocyte sedimentation rate 24 1 - 30 mm/hr Blood 10/13/2024 10:3 0 AM FIELD REP 10/13/2024 12:18 PM FIELD REP us Sarah Rodriguez HEALTH AND WELLNESS COORDINATOR LAB BLOOD ORDERABLES Final Result Performing Organization Address [facility] de Phone Number [address] [place] [address] * TSH (10/13/2024 10:30 AM FIELD REP) [facility] Thyroid Stimulating Hormone 1.00 0.30 - 4.20 mcIUnit/mL Blood 10/13/2024 10:3 0 AM FIELD REP 10/13/2024 12:16 PM FIELD REP Result [facility] Sarah Rodriguez HEALTH AND WELLNESS COORDINATOR LAB BLOOD ORDERABLES Final Result Performing Organization Address [facility] de Phone Number [address] [place] [address] * T4, free (10/13/2024 10:30 AM FIELD REP) [facility] Free T4 1.33 0.90 - 1.70 ng/dL Blood 10/13/2024 10:3 0 AM FIELD REP 10/13/2024 12:16 PM FIELD REP Sarah Rodriguez HEALTH AND WELLNESS COORDINATOR LAB BLOOD ORDERABLES Final Result Performing Organization Address [facility] de Phone Number [address] [place] [address] * Vitamin B12 (10/13/2024 10:30 AM FIELD REP) [facility] Vitamin B12 556 230 - 1,250 pg/mL Blood 10/13/2024 10:3 0 AM FIELD REP 10/13/2024 12:16 PM FIELD REP Sarah Rodriguez HEALTH AND WELLNESS COORDINATOR LAB BLOOD ORDERABLES Final Result SHAHAB [facility] [place] [address] * (ABNORMAL) Valproic acid level, total (10/13/2024 10:30 AM FIELD REP) Valproic Acid 41.3(L) 50.0 - 100.0 mcg/mL Blood 10/13/2024 10:3 0 AM FIELD REP 10/13/2024 12:16 PM FIELD REP Sarah Gant Jennifer HEALTH AND WELLNESS COORDINATOR LAB BLOOD ORDERABLES Final Result Performing Organization Address [facility] Co de Phone Number SHAHAB FELICIANO [facility] [place] [address] * MRI Brain W WO Contrast (10/07/2024 12:48 PM FIELD REP) Anatomical Region Laterality Modality Head and Neck N/A Magnetic Resonan ce 10/07/2024 12:5 9 PM FIELD REP Narrative 10/07/2024 1:18 PM FIELD REP EXAM DESCRIPTION: MRI BRAIN W WO CONTRAST REASON FOR STUDY: concerns for MS Having some dizziness and weakness. checking for multiple sclerosis. PT states she [...] Chris Ferrera M.D. MM T: Report ID: [id number] Reading Location: [id number] Procedure Note Chris Ferrera MD - 10/07/2024 EXAM DESCRIPTION: MRI BRAIN W WO CONTRAST REASON FOR STUDY: concerns for MS Having some dizziness and weakness. checking for multiple sclerosis. PT states she [...] Chris Ferrera M.D. MM T: Report ID: [id number] Reading Location: [id number] Patricia MALAVE IMG MRI PROCEDURES Final Result * MRI Thoracic Spine WO Contrast (10/07/2024 12:15 PM FIELD REP) Anatomical Region Laterality Modality Spine N/A Magnetic Resonan ce 10/07/2024 12:2 9 PM FIELD REP Narrative 10/07/2024 12:45 PM FIELD REP EXAM DESCRIPTION: MRI THORACIC SPINE WO CONTRAST [...] Chris Ferrera M.D. MM T: Report ID: [id number] Reading Location: [id number] Procedure Note Chris Ferrera MD - 10/07/2024 [...] Chris Ferrera M.D. MM T: Report ID: [id number] Reading Location: [place] [address] Patricia MALAVE IMG MRI PROCEDURES Final Result * eGFR (07/24/2024 9:07 AM FIELD REP) eGFR >90 >=60 mL/min/1. 73 m2 Comment: [...] last reviewed 2021. Blood 07/24/2024 9:07 AM FIELD REP 07/24/2024 9:11 AM FIELD REP Tirso Santos MD LAB BLOOD ORDERABLE S Final Result Performing Organization Address City/[facility]/ZIP Co de Phone Number [facility] [address] Department [place] [address] * DIABETES EYE EXAM (07/19/2024) SCRIBED DIABETIC DILATED EYE EXAM Normal Historical Provider HEALTH MAINTENANCE Final Result * (ABNORMAL) Hemoglobin A1c (06/09/2024 12:33 PM CDT) Hgb A1C 5.7(H) 4.0 - 5.6 % Estimated Average Glucose 117 mg/dL SHAHAB [facility] Comment: The ADA recommends reporting an estimated Average Glucose (eAG) with all Hemoglobin A1c results using the equation derived from a study of 507 normal and diabetic adults. Minority populations were underrepresented and children were not included. (Diabetes Care 31:1144-9760, 2008). The eAG is not equivalent to a fasting glucose. Blood 06/09/2024 12:3 3 PM CDT 06/09/2024 12:33 PM CDT Jasmina Jung NP LAB BLOOD ORDERABLES Final Result Performing Organization Address City/[facility] Co de Phone Number [facility] [address] Department [place] [address] * (ABNORMAL) Albumin Creatinine Ratio, Urine (10/29/2023 9:06 AM FIELD REP) Albumin Ur 30.8 mg/L SHAHAB FELICIANO Comment: Interpretive Data No reference range established. Current interpretive data was last revised 2019. Testing performed by: [address] [address] Creatinine Ur 98.4 mg/dL SHAHAB FELICIANO Comment: Interpretive Data No reference range established. Current interpretive data was last revised 2019. Testing performed by: [address] [address] Albumin Creatinine Ratio, Ur 31(H) 1 - 29 mg/g SHAHAB Comment:Testing performed by : [facility], [address] [place] [address]., [address] Urine 10/29/2023 9:06 AM FIELD REP 10/29/2023 9:17 AM FIELD REP us Vesna Parry MD LAB URINE ORDERABLES Nicole l Result [facility] [address] [facility] Department [place] [address] * (ABNORMAL) Lipid panel (10/29/2023 9:06 AM FIELD REP) Cholesterol 219(H) 30 - 199 mg/dL SHAHAB [...] last revised on 2018. Testing performed by: [facility], [address] [place] [address]., [address] Triglycerides 158(H) <=149 mg/dL SHAHAB Comment: Interpretive [...] last revised on 2018. Testing performed by: [address] [address] HDL 37(L) >=40 mg/dL SHAHAB Comment: Interpretive [...] last revised on 2018. Testing performed by: [address] [address] LDL, calculated 150(H) <=129 mg/dL SHAHAB Comment: [...] last revised on 2018. Testing performed by: [address] [address] Non-HDL Cholesterol 182 mg/dL SHAHAB Comment: Interpretive [...] last revised on 2018. Testing performed by: [address], [place]., [address] Chol/HDL ratio 6 NATHANAELMEENU Comment:Testing performed by : [facility], [address] [place] [address]., [address] Blood 10/29/2023 9:06 AM FIELD REP 10/29/2023 9:38 AM FIELD REP Vesna Parry MD LAB BLOOD ORDERABLES Nicole l Result SHAHAB [address] [facility] Department [place] [address] * Colonoscopy (01/04/2022) Anatomical Region Laterality Modality Other Impressions 01/04/2022 Results available in Care Everywhere us Historical Provider ENDOSCOPY PROCEDURES Nicole l Result from Last 3 Months or Most Recently Relevant to Health Maintenance Insurance IDPA [facility] CHOICE PLUS IDPA WORKERS COMPENSATION GENERIC WORKERS COMPENSATION GENERIC WORKERS COMPENSATION GENERIC WORKERS COMPENSATION GENERIC WORKERS COMPENSATION GENERIC WORKERS COMPENSATION GENERIC WORKERS COMPENSATION GENERIC WORKERS COMPENSATION GENERIC WORKERS COMPENSATION GENERIC COMPENSATION IDPA Member Subscriber Plan / Payer (Ef fective 2023-Present) Name:Tammy Hammer Relation to Subscriber:Self Name:Tammy Hammer Payer ID:[id number] Group ID:Not on file Type:MEDICAID [place] Address: [place] [id number] Member Subscriber Plan / Payer (Ef fective 2023-Present) Name:Tammy Hammer Relation to Subscriber:Self Name:Tammy Hammer Payer ID:[id number] Group ID:Not on file Type:MEDICAID [place] Address: [place] [id number] Advance Directives For more information, please contact: [phone] * Full Code (Latest Code Status on File) Date Activated Date Inactivated Comments 07/24/2024 5:32 PM 07/25/2024 1:12 PM * Full Code Date Activated Date Inactivated Comments 06/11/2024 12:12 PM 06/12/2024 4:45 PM * Full Code Date Activated Date Inactivated Comments 12/26/2022 3:16 PM 12/28/2022 7:04 PM * Full Code Date Activated Date Inactivated Comments 03/06/2020 10:28 AM 03/06/2020 5:45 PM Care Teams Software Applications Engineer Relationship Specialty Start Date End Date Patricia Nichols PA [address] [facility] [address] [place] [address] PCP - General Family Medicine 06/09/24 Lele Millan DO [address] [place] [address] [place] [id number] Consulting Physician Orthopedic Surgery 02/26/22
--- OUTSIDE RECORDS SUMMARY | 2024-12-14 02:22 | XMS_ITS ---
Author Organization Unknown Address [address] [place], [place] [phone] Phone Care Team Providers Care Electrical Sign Servicer Name Role Phone JUAN BANKSTIMMY Martino Attending Unavailable Immunization Immunization Date Status Additional Notes Code Code System Pneumococcal conjugate PCV20 , polysaccharide [id number] conjugate, adjuvant, PF 05/24/2024 Completed 216 CVX [...] em Smoking History Never smoker (Never Smoked) [id number] SNOMED CT Sex Female Hospital Discharge Instructions [...] Sys tem Pelvic and perineal pain 06/26/2023 [id number] [facility]-CT Personal Care Team Section Performer Name Performer Role Active Date Inactive Da te Imaging Narrative Notes
--- OUTSIDE RECORDS SUMMARY | 2024-12-14 02:23 | XMS_ITS ---
Author Organization Unknown Address [address] [place], [place] [phone] Phone Care Team Providers Care Mine Inspector Federal Name Role Phone NINO RASCON Attending Unavailable Immunization Immunization Date Status Additional Notes Code Code System Pneumococcal conjugate PCV20 , polysaccharide [id number] conjugate, adjuvant, PF 05/24/2024 Completed 216 CVX [...] em Smoking History Never smoker (Never Smoked) [id number] SNOMED CT Sex Female Hospital Discharge Instructions [...]
--- OUTSIDE RECORDS SUMMARY | 2024-12-14 02:23 | XMS_ITS ---
Author Organization Unknown Address [address] [place], [place] [phone] Phone Care Team Providers Care Corporate Communications Manager Name Role Phone LAVELLE JUAN Attending Unavailable Immunization Immunization Date Status Additional Notes Code Code System Pneumococcal conjugate PCV20 , polysaccharide [id number] conjugate, adjuvant, PF 05/24/2024 Completed 216 CVX [...] EXAMINATION: MRI lumbar spin e without contrastACCESSION: [id number] DATE/TIME: 11/01/2024 10:58 AM REASON FOR EXAM: [...] em Smoking History Never smoker (Never Smoked) [id number] SNOMED CT Sex Female Hospital Discharge Instructions [...] tem Spinal stenosis in cervical region 11/01/2024 [id number] SNOMED-CT Personal Care Team Section Performer Name Performer Role Active Date Inactive Da te Imaging Narrative Notes [facility] 11/02/2024 08:46 1 [facility] [address] [place] [address] RADIOLOGY REPORT NAME: NUMBER: SEX: AGE: ADMIT: SERVICE: Type: LUKE ROBERTS [id number] F [id number] 11/01/24 AX 2 DATE OF : 1970 M/R#: [id number] HOME PHONE: [phone] RM: CELL PHONE: [phone] ACCESSION NUMBER: [id number] MRI LUMBOSACRAL W/O CONTRAST COMPLETE: 11/01/2024 11:38 KB ATTENDING PHYSICIAN: DRAEK VALDERRAMA SECOND PHYSICIAN: DICTATING PHYSICIAN: Zion Dixon [...] No spinal canal or foraminal stenosis. [address] [place] [address] [place] [address] RADIOLOGY REPORT NAME: NUMBER: SEX: AGE: ADMIT: SERVICE: Type: LUKE ROBERTS [id number] F 54 11/01/24 AX 2 DATE OF : 1970 M/R#: [id number] HOME PHONE: [phone] RM: CELL PHONE: [phone] ACCESSION NUMBER: [id number] MRI LUMBOSACRAL W/O CONTRAST COMPLETE: 11/01/2024 11:38 [...]
--- OUTSIDE RECORDS SUMMARY | 2024-12-14 02:23 | XMS_ITS ---
Author Organization Unknown Address [address] [place], [place] [phone] Phone Care Team Providers Care Inspector Publications Name Role Phone KENDRICK Martino Attending Unavailable Immunization Immunization Date Status Additional Notes Code Code System Pneumococcal conjugate PCV20 , polysaccharide LYK010 conjugate, adjuvant, PF 05/24/2024 Completed 216 CVX [...] LOINC: EXAMINATION: MRI RIGHT KNEE WITHOUT CONTRASTACCESSION: [id number] DATE: 01/17/2022 2:21 PM REASON FOR EXAM: [...] em Smoking History Never smoker (Never Smoked) [id number] Sex Female Hospital Discharge Instructions Should you have any questions prior to discharge, please contact a member of your healthcare team. If you have left the hospital and have any questions, please contact your primary care physician. Reason For Referral No Data Found Plan of Treatment No Data Found Encounters Encounter Diagnosis Start Date Code Code Sys tem 01/17/[id number] [facility] [facility] Personal Care Team Section Performer Name Performer Role Active Date Inactive Da te Imaging Narrative Notes [facility] 01/17/2022 15:[address] [address] RADIOLOGY REPORT NAME: NUMBER: SEX: AGE: ADMIT: SERVICE: Type: LUKE ROBERTS Roxane [id number] F 51 01/17/22 AX 2 DATE OF : 1970 M/R#: [id number] HOME PHONE: [phone] RM: CELL PHONE: [phone] ACCESSION NUMBER: [id number] MRI KNEE RIGHT W/O CONTRASTCOMPLETE: 01/17/2022 15:07 [...] small vertical tear. Correlation with symptoms [address] [address] RADIOLOGY REPORT NAME: NUMBER: SEX: AGE: ADMIT: SERVICE: Type: LUKE ROBERTS [id number] F 51 01/17/22 AX 2 DATE OF : 1970 M/R#: [id number] HOME PHONE: [phone] RM: CELL PHONE: [phone] ACCESSION NUMBER: [id number] MRI KNEE RIGHT W/O CONTRASTCOMPLETE: 01/17/2022 15:07 [...]
--- OUTSIDE RECORDS SUMMARY | 2024-12-14 02:23 | XMS_ITS | Referral Summary ---
Author Organization [facility] Address [address] [place] [address] Care Team Providers Care Cnc Milling Machinist Name Role Phone Lele Millan DO Unavailable [phone] Patricia Nichols Primary Care Provider + Encounters Date Type Department Care Team Description 11/11/2024 2:00 PM CDT Telemedicine [address] [phone] Patricia Nichols PA Type 2 diabetes mellitus without complication, without long-term current use of insulin (HCC) (Primary Dx); Vitamin D deficiency; Dyslipidemia; Coronary artery disease involving chilkoot coronary artery of chilkoot heart without angina pectoris 11/11/2024 Nurse Triage [address] [phone] Milly Carlin RN 11/09/2024 Results Follow-Up [address] [phone] Patricia Nichols PA 11/09/2024 1:59 PM CDT - 11/09/2024 11:59 PM CDT Hospital Encounter [facility] [address] [place] [address] Encounter for screening mammogram for malignant neoplasm of breast Discharge Disposition: Discharge to home or self care 10/18/2024 Results Follow-Up [facility] Neu[facility] [address] [place] [address] [place] [phone] Sarah Rodriguez NP 10/13/2024 11:00 AM TUNNEL HEADING SUPERVISOR Lab [facility] Bldg [address] OP Lab [address] [place] [id number] Medication monitoring encounter; Paresthesia of skin 10/13/2024 10:00 AM TUNNEL HEADING SUPERVISOR Office Visit [facility] [address] [place] [address] [place] [phone] Sarah Rodriguez NP Nonintractable epilepsy without status epilepticus, unspecified epilepsy type (HCC) (Primary Dx); Paresthesia of skin; Medication monitoring encounter 10/08/2024 Letter (Out) [address] [phone] 10/08/[address] [phone] Patricia Nichols PA Test Results 10/07/2024 11:10 AM TUNNEL HEADING SUPERVISOR - 10/07/2024 11:59 PM TUNNEL HEADING SUPERVISOR Hospital Encounter [facility] MRI [address] [place] [id number] Dizziness; Paresthesias; Persistent headaches Discharge Disposition: Discharge to home or self care 10/07/2024 11:11 AM TUNNEL HEADING SUPERVISOR - 10/07/2024 11:59 PM TUNNEL HEADING SUPERVISOR Hospital Encounter [facility] MRI [address] [place] [phone] Chronic bilateral thoracic back pain Discharge Disposition: Discharge to home or self care 10/01/2024 9:00 AM TUNNEL HEADING SUPERVISOR Office Visit [address] [phone] Patricia Nichols PA Abdominal wall seroma, sequela [...] 23 Active blood-glucose meter,continu ous (Dexcom G7 Director Of Marketing) misc Use as directed 1 each 3 [...] as needed for constipation 30 tablet 07/26/20 Active Additional Information Patient not taking.Reported on 11/11/2024 oxyCODONE-mohsen taminophen (PERCOCET) 5-325 mg per tabletIndicat ions:Pain Take 1 tablet by mouth every 4 (four) hours as needed for pain May take 2 tablets prior to wound vac change once daily PRN; max 7 pills/day 40 tablet 08/12/20 Active Additional Information Patient not taking.Reported on [...] tablet by mouth daily as needed 10/28/19 25 Active HYDROcodone-a cetaminophen (NORCO) 5-325 mg per tablet TAKE ONE TABLET BY MOUTH FIVE TIMES DAILY 10/28/19 25 Active amLODIPine (NORVASC) 5 mg tablet Take 1 tablet (5 mg total) by mouth daily Active empagliflozin (JARDIANCE) 25 mg tabletIndicat ions:Type 2 diabetes mellitus without complication, without long-term current use of insulin (HCC) Take 1 tablet (25 mg total) by mouth daily 30 tablet 5 11/12/19 25 Active evolocumab (Repatha SureClick) 140 mg/mL pen injectorIndic ations:Dyslip idemia,Potter ry artery disease involving chilkoot coronary artery of chilkoot heart without angina pectoris Inject 1 mL (140 mg total) under the skin every 14 (fourteen) days 2 mL 5 11/12/19 25 Active Dexcom G7 Sensor device CHANGE EVERY 10 DAYS 3 each 2 11/24/19 25 Active blood-glucose sensor (Dexcom G7 Sensor) device Change every 10 days 3 each 2 07/19/20 24 2024 Discontinued Active Problems Problem Noted Date Diagnosed Date Abdominal wall seroma, sequela 07/24/2024 Assessment & Plan (07/26/2024 11:36 AM TUNNEL HEADING SUPERVISOR): Patient is status post wound exploration and [...] 07/02/2023 Assessment & Plan (07/29/2023 2:16 PM TUNNEL HEADING SUPERVISOR): Worsening symptoms with severe spinal stenosis Refer [...] medication. 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 The patient was seen by the emergency room as well as by the occupational medicine physician at [facility] and physician yard assistant Shalonda on November 09, 2021 without [...] 09/26/2020 Assessment & Plan (09/12/2022 2:30 PM TUNNEL HEADING SUPERVISOR): Cannot take statins Was on Repatha/praluent per cardiology Assessment & Plan (04/16/2021 2:23 PM CDT): On Repatha Assessment & Plan (09/26/2020 12:43 PM TUNNEL HEADING SUPERVISOR): Seeing cardiology now - working on approval for injectable meds - Praluent or Repatha. Chronic pelvic pain in female 09/26/2020 Assessment & Plan (09/26/2020 12:50 PM TUNNEL HEADING SUPERVISOR): Refer to new pain management [place] PRN Other chronic pain 08/19/2020 Assessment & Plan (08/17/2024 8:54 AM TUNNEL HEADING SUPERVISOR): Chronic pain related to recurrent abdominal hernia (postop exploratory surgery), chronic low back pain, chronic thoracic back pain, chronic neck pain, pain of multiple joints - Following with general surgeon, Dr. Santos. Established patient of Dr. Bobo, spinal surgeon Previously patient of Dr. Jackson, pain management Discussed with patient today the complexity of her pain and need for comprehensive treatment plan with a shipyard painter helper. We want to prioritize non- opioid options [...] plan. Assessment & Plan (07/14/2024 11:58 AM TUNNEL HEADING SUPERVISOR): Patient feels the 7.5mg norco is too strong now. Wanting to back off - has about a week's worth left. She will try cutting in half and potentially decreasing to 5/325mg with next refill. Assessment & Plan (05/14/2023 11:53 AM CDT): Chronic, worse in the last 5 days No improvement with [place] and Flexeril Allergy to NSAIDs Recommend OTC [...] norco Assessment & Plan (09/26/2020 12:49 PM TUNNEL HEADING SUPERVISOR): Seeing pain management, but needing new referral to provider closer to home. Will refer. I will manage her pain meds in the interim. Assessment & Plan (08/19/2020 5:42 PM TUNNEL HEADING SUPERVISOR): Stable Cont [place] per pain management S/P right knee arthroscopy 02/28/2020 Overview (02/28/2020): Added automatically from request for surgery [id number] Chronic pain of both shoulders 12/28/2019 Assessment & Plan (07/14/2024 11:58 AM TUNNEL HEADING SUPERVISOR): Patient feels the 7.5mg norco is too [...] 12/28/2019 Assessment & Plan (09/26/2020 12:51 PM TUNNEL HEADING SUPERVISOR): [place] PRN New pain management referral Assessment & [...] 12/13/2019 Assessment & Plan (09/26/2020 12:50 PM TUNNEL HEADING SUPERVISOR): Refer to new pain management in this area Assessment & Plan (02/01/2020 6:13 AM CDT): New Order flector patch Order PT Chronic bilateral thoracic back pain 12/13/2019 Assessment & Plan (07/14/2024 11:58 AM TUNNEL HEADING SUPERVISOR): Patient feels the 7.5mg norco is too [...] & Plan (04/16/2021 2:23 PM CDT): Stable SC (myocardial infarction) 09/16/2019 Overview (09/16/2019): TIMES 2 Assessment & Plan (09/16/2019 3:59 PM TUNNEL HEADING SUPERVISOR): 2 back to back SC's age 47 - on Plavix, h/o coronary stenting CHRISTIANNE (generalized anxiety disorder) 09/16/2019 Assessment & Plan (09/16/2019 4:00 PM TUNNEL HEADING SUPERVISOR): Try Buspar Meds failed prior: Lexapro, Celexa, Zoloft, diazepam Vitamin D deficiency 09/16/2019 Assessment & Plan (11/11/2024 2:10 PM CDT): Recheck Vitamin D levels Orders: Comprehensive metabolic panel; Future Lipid panel; Future Hemoglobin A1c; Future Albumin Creatinine Ratio, Urine; Future Vitamin D 25 hydroxy; Future Assessment & Plan (07/29/2023 10:47 AM TUNNEL HEADING SUPERVISOR): Chronic Stable Cont vitamin d Assessment & Plan (09/12/2022 2:28 PM TUNNEL HEADING SUPERVISOR): Stable, no changes. Continue current regimen with supplement Assessment & Plan (02/15/2021 10:22 AM CDT): Repeat levels Assessment & Plan (08/19/2020 5:42 PM TUNNEL HEADING SUPERVISOR): Stable Naturally controlled Assessment & Plan (10/07/2019 11:18 AM TUNNEL HEADING SUPERVISOR): Restart Vitamin D supplement, once weekly Assessment & Plan (09/16/2019 4:00 PM TUNNEL HEADING SUPERVISOR): Check levels Type 2 diabetes mellitus wit [...] Start Jardiance 25mg dailiy - Refer to rug underlay machine operator for further management. - May need to [...] Future Assessment & Plan (07/14/2024 11:57 AM TUNNEL HEADING SUPERVISOR): Some hypoglycemia. Decrease frequency of mounjaro injection [...] reviewed Assessment & Plan (07/29/2023 2:14 PM TUNNEL HEADING SUPERVISOR): Chronic Get updated labs Goal: hgba1c<6.5 Assessment & Plan (03/25/2023 9:55 AM CDT): Stop Trulicity Start Mounjaro - 2.5mg samples given 5mg dose sent to pharmacy to start in 4 weeks after finishes starting dose Follows with cardiology Eye exam - will get report Assessment & Plan (09/12/2022 2:29 PM TUNNEL HEADING SUPERVISOR): To get labs done Victoza not working [...] Farxiga Assessment & Plan (09/26/2020 12:49 PM TUNNEL HEADING SUPERVISOR): Stable, no changes. Continue current regimen with metformin. Will monitor glucose at home more closely. New meter/supplies sent to pharmacy. Will get report from eye exam. Taking Aspirin. Not on statin - intolerant. Seeing cardiology. No MOHSEN/ARB currently Assessment & Plan (08/19/2020 5:41 PM TUNNEL HEADING SUPERVISOR): Stable cont glucophage Assessment & Plan (01/25/2020 1:39 PM CDT): Order updated labs Cont metformin stable Assessment & Plan (09/16/2019 3:59 PM TUNNEL HEADING SUPERVISOR): Stable, no changes. Continue current regimen with metformin. A1c done while hospitalized well controlled 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 Gastroesophageal reflux disease without esophagi tis 12/17/2018 Assessment & Plan (08/17/2024 8:55 AM TUNNEL HEADING SUPERVISOR): Chronic, not well controlled Pt experienced side effects with famotidine that resolved once she discontinued medication GERD still not well controlled - having daily heartburn/reflux symptoms She did well with pantoprazole in the past, but just felt it lost its effectiveness after a while Restart pantoprazole 40mg daily Assessment & Plan (08/19/2020 5:42 PM TUNNEL HEADING SUPERVISOR): Stable Cont protonix Essential hypertension 06/09/2018 Assessment & Plan (07/14/2024 11:59 AM TUNNEL HEADING SUPERVISOR): Chronic, uncontrolled Not currently BP meds, has been in the past Under a lot of stress, pain Monitor BP at home and bring log back in 2 weeks. Assessment & Plan (07/29/2023 2:14 PM TUNNEL HEADING SUPERVISOR): Chronic Cont amlodipine Goal: SBP<140, DBP<90 Assessment & Plan (11/18/2022 1:18 PM CDT): Uncontrolled BP improved in office with 1 dose of clonidine 0.1mg Start amlodipine 5mg daily and close monitoring of BP - allergy to lisinopril in the past. Assessment & Plan (09/12/2022 2:29 PM TUNNEL HEADING SUPERVISOR): Stable Assessment & Plan (03/12/2022 7:12 PM CDT): No meds currently Will monitor at home and report back with readings Assessment & Plan (04/16/2021 2:23 PM CDT): Stable Assessment & Plan (09/16/2019 4:00 PM TUNNEL HEADING SUPERVISOR): Stable without meds Dyslipidemia 06/09/2018 Assessment & [...] cardiology Assessment & Plan (09/12/2022 2:29 PM TUNNEL HEADING SUPERVISOR): Due for labs Seeing cardiology in the past Statin intolerant Assessment & Plan (08/19/2020 5:41 PM TUNNEL HEADING SUPERVISOR): Uncontrolled Add fish oil Cont zetia Assessment & Plan (09/16/2019 3:59 PM TUNNEL HEADING SUPERVISOR): Stable, no changes. Continue current regimen with statin Coronary artery disease invo lving chilkoot coronary artery of chilkoot heart without angina pectoris 06/09/2018 Assessment & Plan (11/11/2024 2:10 PM CDT): Chronic Following with cardiology Continue Repatha Orders: evolocumab (Repatha SureClick) 140 mg/mL pen injector; Inject 1 mL (140 mg total) under the skin every 14 (fourteen) days Assessment & Plan (06/10/2024 9:05 AM CDT): Chronic condition. Patient does not currently follow with cardiology. Referral placed Assessment & Plan (09/16/2019 3:58 PM TUNNEL HEADING SUPERVISOR): On Plavix - h/o stenting and recent SC x 2 Tobacco abuse counseling 06/09/2018 Resolved [...] (05/08/2022): Added automatically from request for surgery [id number] Visit for suture removal 03/15/2022 Sprain of [...] 03/15/2021 Assessment & Plan (09/26/2020 12:50 PM TUNNEL HEADING SUPERVISOR): Opal T[place] Seeing ortho Doing PT Assessment & Plan (08/19/2020 5:42 PM TUNNEL HEADING SUPERVISOR): Worsening Unable to tolerate PT Refer to [...] 02/05/2020 Assessment & Plan (09/16/2019 4:04 PM TUNNEL HEADING SUPERVISOR): Xiao fundiplication in November 2018 - still [...] on file Legal Sex Female 9:12 PM TUNNEL HEADING SUPERVISOR Gender Identity Female 03/20/2020 10:25 PM CDT Sexual Orientation Straight 03/20/2020 10 :25 PM CDT 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 Not on file Not on file 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 Not on file Not on file Not on file Last Filed Vital Signs Vital Sign Reading Time Taken Comments Blood Pressure 140/80 10/13/2024 9:41 AM TUNNEL HEADING SUPERVISOR Pulse 101 10/13/2024 9:41 AM TUNNEL HEADING SUPERVISOR Temperature 36.5 C (97.7 F) 10/01/2024 9:20 AM TUNNEL HEADING SUPERVISOR Respiratory Rate 20 10/13/2024 9:41 AM TUNNEL HEADING SUPERVISOR Oxygen Saturation 98% 10/13/2024 9:41 AM TUNNEL HEADING SUPERVISOR Inhaled Oxygen Concentration - - Weight 83.9 kg (185 lb) 10/13/2024 9:41 AM TUNNEL HEADING SUPERVISOR Height 167.6 cm (5' 6 ) 11/11/2024 2:07 PM CDT Body Mass Index 29.86 10/13/2024 9:41 AM TUNNEL HEADING SUPERVISOR Plan of Treatment Not on file Medical Devices Implanted Type Area Wire Rope Sling Maker Device Identifier Shelf Expiration Date Model / Serial / Lot [place] Bilateral: Pelvis Screws Right: Ankle Gallbadder Clip N/A: Bile Duct [employer] Internalbrace Fibertape Kit Arthroscopic Fixation Collagen Ar-1688-Cp - [id number] Implanted:Qty: 1 on 02/26/2022 by Lele Millan DO at [facility] Left: Ankle [employer] [id number] 12/30/2023 AR-1688-C P / / [id number] Arthrex Inc Arthrex Dx Fibertak Needle [place] Suture Sterile Latex Free Ar-8990st - [id number] Implanted:Qty: 1 on 02/26/2022 by Llee Millan DO at [facility] Left: Ankle [employer]rex Inc [id number] 10/29/2026 AR-8990ST / / [id number] Ar[employer] Inc Arthrex Dx Fibertak Needle [place] Suture Sterile Latex Free Ar-8990st - [id number] Implanted:Qty: 1 on 02/26/2022 by Lele Millan DO at [facility] Left: Ankle [employer] Inc [id number] 10/29/2026 AR-8990ST / / [id number] Davol Inc/C R Bard Bard Marlex [id number] Monofilament Gold Standard Flat Sheet [id number] - [id number] Implanted:Qty: 1 on 12/26/2022 by Lewis Gagnon DO at [facility] N/A: Abdomen Davol Inc/C R Bard [id number] 01/26/2027 [id number] / / [id number] Davol Inc/C R Bard Bard Marlex [id number] Monofilament Gold Standard Flat Sheet [id number] - [id number] Implanted:Qty: 1 on 06/11/2024 by Tirso Santos MD at [facility] N/A: Abdomen [employer] Inc/C R Bard 05/29/2028 [id number] / / [id number] Explanted Type Area Wire Rope Sling Maker Device Identifier Shelf Expiration Date Model / Serial / Lot Ethicon Endo Surgery Vicryl [id number] Knit Woven Mesh Surgical Vkml - [id number] Explanted:Qty: 1 on 12/26/2022 by Lewis Gagnon DO at [facility] N/A: Abdomen Ethicon Endo Surgery [id number] 02/28/2026 [id number] / / [id number] Procedures Procedure Name Priority Date/Time Associated Diagnosis Comments SCREENING MAMMOGRAM BILATERAL W BAY Schedule Routine, Read Routine (OP Routine) 11/09/2024 2:14 PM CDT Encounter for screening mammogram for malignant neoplasm of breast VITAMIN B1 Routine 10/13/2024 2:01 PM TUNNEL HEADING SUPERVISOR TSH Routine 10/13/2024 10:30 AM TUNNEL HEADING SUPERVISOR Paresthesia of skin T4, FREE Routine 10/13/2024 10:30 AM TUNNEL HEADING SUPERVISOR Paresthesia of skin DAVID QUALITATIVE WITH REFLEX TO DAVID QUANTITATIVE Routine 10/13/2024 10:30 AM TUNNEL HEADING SUPERVISOR Paresthesia of skin ERYTHROCYTE SEDIMENTATION RATE Routine 10/13/2024 10:30 AM TUNNEL HEADING SUPERVISOR Paresthesia of skin VITAMIN B12 Routine 10/13/2024 10:30 AM TUNNEL HEADING SUPERVISOR Paresthesia of skin VALPROIC ACID LEVEL, TOTAL Routine 10/13/2024 10:30 AM TUNNEL HEADING SUPERVISOR Medication monitoring encounter MRI BRAIN W WO CONTRAST Schedule Routine, Read Routine (OP Routine) 10/07/2024 12:48 PM TUNNEL HEADING SUPERVISOR Dizziness Paresthesias Persistent headaches MRI THORACIC SPINE WO CONTRAST Schedule Routine, Read Routine (OP Routine) 10/07/2024 12:15 PM TUNNEL HEADING SUPERVISOR Chronic bilateral thoracic back pain EGFR Routine 07/24/2024 9:07 AM TUNNEL HEADING SUPERVISOR HM DIABETES EYE EXAM Routine 07/19/2024 HEMOGLOBIN A1C Routine 06/09/2024 12:33 PM CDT Preop testing LIPID PANEL Routine 10/29/2023 9:06 AM TUNNEL HEADING SUPERVISOR Essential hypertension Type 2 diabetes mellitus without complication, without long-term current use of insulin (HCC) ALBUMIN CREATININE RATIO, URINE Routine 10/29/2023 9:06 AM TUNNEL HEADING SUPERVISOR Type 2 diabetes mellitus without complication, without [...] age 40, based on guidelines of the [employer] (ACR Practice Parameter for the Performance of Screening and Diagnostic Mammography) and [employer]. For women [...] has been no suspicious change. Patricia MAL[facility] IMG MAMMO PROCEDURES Fin al Result * Vitamin B1 (10/13/2024 2:01 PM TUNNEL HEADING SUPERVISOR) Thiamine (Vit B1) 108 70 - 180 nmol/L [facility] ref Lab Comment: ADDITIONAL INFORMATION This test was developed and its performance characteristics determined by [facility] in a manner consistent with CLIA requirements. This test has not been cleared or approved by the U.S. Food and Drug Administration. Test Performed by: [facility] - [facility] [address] [place] [address] Chicken Cleaner: Nisha Michelle Ph.D.; CLIA# [id number] Blood 10/13/2024 2:01 PM TUNNEL HEADING SUPERVISOR 10/13/2024 4:10 PM TUNNEL HEADING SUPERVISOR Sarah Rodriguez PEOPLESOFT BUSINESS ANALYST LAB BLOOD ORDERABLES Final Result [facility] [employer] [place] [address] [facility] ref Lab * DAVID ab ql w/rflx to DAVID qn (10/13/2024 10:30 AM TUNNEL HEADING SUPERVISOR) DAVID Negative Comment: Interpretive Data Normal range [...] last revised on 2020. Testing performed by: [facility], [address] [facility] [place] [address] Blood 10/13/2024 10:3 0 AM TUNNEL HEADING SUPERVISOR 10/13/2024 3:00 PM TUNNEL HEADING SUPERVISOR us Sarah Rodriguez PEOPLESOFT BUSINESS ANALYST LAB BLOOD ORDERABLES Final Result Performing Organization Address City/[facility]/ZIP Co de Phone Number SHAHAB [address] [place] [address] * Erythrocyte sedimentation rate (10/13/2024 10:30 AM TUNNEL HEADING SUPERVISOR) Pathologist [facility] Erythrocyte sedimentation rate 24 1 - 30 mm/hr Blood 10/13/2024 10:3 0 AM TUNNEL HEADING SUPERVISOR 10/13/2024 12:18 PM TUNNEL HEADING SUPERVISOR Sarah Rodriguez PEOPLESOFT BUSINESS ANALYST LAB BLOOD ORDERABLES Final Result [address] [place] [address] * TSH (10/13/2024 10:30 AM TUNNEL HEADING SUPERVISOR) Thyroid Stimulating Hormone 1.00 0.30 - 4.20 mcIUnit/mL Blood 10/13/2024 10:3 0 AM TUNNEL HEADING SUPERVISOR 10/13/2024 12:16 PM TUNNEL HEADING SUPERVISOR us Sarah Rodriguez PEOPLESOFT BUSINESS ANALYST LAB BLOOD ORDERABLES Final Result [address] [place] [address] * T4, free (10/13/2024 10:30 AM TUNNEL HEADING SUPERVISOR) Free T4 1.33 0.90 - 1.70 ng/dL Blood 10/13/2024 10:3 0 AM TUNNEL HEADING SUPERVISOR 10/13/2024 12:16 PM TUNNEL HEADING SUPERVISOR us Sarah Rodriguez PEOPLESOFT BUSINESS ANALYST LAB BLOOD ORDERABLES Final Result Performing Organization Address [facility] Co hi Phone Number [address] [place] [address] * Vitamin B12 (10/13/2024 10:30 AM TUNNEL HEADING SUPERVISOR) Vitamin B12 556 230 - 1,250 pg/mL Blood 10/13/2024 10:3 0 AM TUNNEL HEADING SUPERVISOR 10/13/2024 12:16 PM TUNNEL HEADING SUPERVISOR us Sarah Rodriguez PEOPLESOFT BUSINESS ANALYST LAB BLOOD ORDERABLES Final Result Performing Organization Address [facility] Co de Phone Number [address] [place] [address] * (ABNORMAL) Valproic acid level, total (10/13/2024 10:30 AM TUNNEL HEADING SUPERVISOR) Valproic Acid 41.3(L) 50.0 - 100.0 mcg/mL Blood 10/13/2024 10:3 0 AM TUNNEL HEADING SUPERVISOR 10/13/2024 12:16 PM TUNNEL HEADING SUPERVISOR us Sarah Rodriguez PEOPLESOFT BUSINESS ANALYST LAB BLOOD ORDERABLES Final Result Performing Organization Address City/[facility]/ZIP Co de Phone Number SHAHAB [address] [place] [address] * MRI Brain W WO Contrast (10/07/2024 12:48 PM TUNNEL HEADING SUPERVISOR) Anatomical Region Laterality Modality Head and Neck N/A Magnetic Resonan ce 10/07/2024 12:5 9 PM TUNNEL HEADING SUPERVISOR Narrative 10/07/2024 1:18 PM TUNNEL HEADING SUPERVISOR EXAM DESCRIPTION: MRI BRAIN W WO CONTRAST [...] Chris Ferrera M.D. MM T: Report ID: [id number] Reading Location: [id number] Procedure Note Chris Ferrera MD - 10/07/2024 [...] Chris Ferrera M.D. MM T: Report ID: [id number] Reading Location: [id number] Patricia [facility] IMG MRI PROCEDURES Final Result * MRI Thoracic Spine WO Contrast (10/07/2024 12:15 PM TUNNEL HEADING SUPERVISOR) Anatomical Region Laterality Modality Spine N/A Magnetic Resonan ce 10/07/2024 12:2 9 PM TUNNEL HEADING SUPERVISOR Narrative 10/07/2024 12:45 PM TUNNEL HEADING SUPERVISOR EXAM DESCRIPTION: MRI THORACIC SPINE WO CONTRAST [...] PM - Electronically signed by Chris Ferrera M.D., MM T: Report ID: [id number] Reading Location: [id number] Procedure Note Chris Ferrera MD - 10/07/2024 [...] PM - Electronically signed by Chris Ferrera M.D., MM T: Report ID: [id number] Reading Location: [id number] Patricia MALAVE IMG MRI PROCEDURES Final Result * eGFR (07/24/2024 9:07 AM TUNNEL HEADING SUPERVISOR) eGFR >90 >=60 mL/min/1. 73 m2 Comment: [...] last reviewed 2021. Blood 07/24/2024 9:07 AM TUNNEL HEADING SUPERVISOR 07/24/2024 9:11 AM TUNNEL HEADING SUPERVISOR Tirso Santos MD LAB BLOOD ORDERABLE S Final Result [facility] [address] Department [place] [address] * DIABETES EYE EXAM (07/19/2024) SCRIBED DIABETIC DILATED EYE EXAM Normal Gurpreet Ignacio MD HEALTH MAINTENANCE Final Result * (ABNORMAL) Hemoglobin A1c (06/09/2024 12:33 PM CDT) Hgb A1C 5.7(H) 4.0 - 5.6 % Estimated Average Glucose 117 mg/dL [facility] Comment: The ADA recommends reporting an estimated Average Glucose (eAG) with all Hemoglobin A1c results using the equation derived from a study of 507 normal and diabetic adults. Minority populations were underrepresented and children were not included. (Diabetes Care 31:1700-0841, 2008). The eAG is not equivalent to a fasting glucose. Blood 06/09/2024 12:3 3 PM CDT 06/09/2024 12:33 PM CDT Jasmina Jung PEOPLESOFT BUSINESS ANALYST LAB BLOOD ORDERABLES Final Result THE [facility] [address] Department [place] [address] * (ABNORMAL) Albumin Creatinine Ratio, Urine (10/29/2023 9:06 AM TUNNEL HEADING SUPERVISOR) Albumin Ur 30.8 mg/L [facility] Comment: Interpretive Data No reference range established. Current interpretive data was last revised 2019. Testing performed by: [address] [address] Creatinine Ur 98.4 mg/dL [facility] Comment: Interpretive Data No reference range established. Current interpretive data was last revised 2019. Testing performed by: [address] [address] Albumin Creatinine Ratio, Ur 31(H) 1 - 29 mg/g [facility] Comment:Testing performed by : [address] [address] Urine 10/29/2023 9:06 AM TUNNEL HEADING SUPERVISOR 10/29/2023 9:17 AM TUNNEL HEADING SUPERVISOR Vesna Parry MD LAB URINE ORDERABLES Nicole l Result [facility] [address] [facility] Department [place] [address] * (ABNORMAL) Lipid panel (10/29/2023 9:06 AM TUNNEL HEADING SUPERVISOR) Cholesterol 219(H) 30 - 199 mg/dL [facility] [...] last revised on 2018. Testing performed by: [address] [address] Triglycerides 158(H) <=149 mg/dL [facility] Comment: Interpretive [...] last revised on 2018. Testing performed by: [address] [address] HDL 37(L) >=40 mg/dL [facility] Comment: Interpretive [...] last revised on 2018. Testing performed by: [address] [address] LDL, calculated 150(H) <=129 mg/dL [facility] Comment: [...] last revised on 2018. Testing performed by: [address] [address] Non-HDL Cholesterol 182 mg/dL [facility] Comment: Interpretive [...] last revised on 2018. Testing performed by: [address] [address] Chol/HDL ratio 6 [facility] Comment:Testing performed by : [address] [address] Blood 10/29/2023 9:06 AM TUNNEL HEADING SUPERVISOR 10/29/2023 9:38 AM TUNNEL HEADING SUPERVISOR Vesna Parry MD LAB BLOOD ORDERABLES Nicole l Result [facility] [address] [facility] Department [place] [address] * Colonoscopy (01/04/2022) Anatomical Region Laterality Modality Other Impressions 01/04/2022 Results available in Care Everywhere us Historical Provider ENDOSCOPY PROCEDURES Nicole euceda Result from Last 3 Months or Most Recently Relevant to Health Maintenance Insurance [facility] CHOICE PLUS IDPA WORKERS COMPENSATION GENERIC WORKERS COMPENSATION GENERIC WORKERS COMPENSATION GENERIC WORKERS COMPENSATION GENERIC WORKERS COMPENSATION GENERIC WORKERS COMPENSATION GENERIC WORKERS COMPENSATION GENERIC WORKERS COMPENSATION GENERIC WORKERS COMPENSATION GENERIC COMPENSATION IDPA IDPA Advance Directives For more information, please contact: [phone] * Full Code (Latest Code Status on File) Date Activated Date Inactivated Comments 07/24/2024 5:32 PM 07/25/2024 1:12 PM * Full Code Date Activated Date Inactivated Comments 06/11/2024 12:12 PM 06/12/2024 4:45 PM * Full Code Date Activated Date Inactivated Comments 12/26/2022 3:16 PM 12/28/2022 7:04 PM * Full Code Date Activated Date Inactivated Comments 03/06/2020 10:28 AM 03/06/2020 5:45 PM Care Teams Cnc Milling Machinist Relationship Specialty Start Date End Date Patricia Nichols PA [address] [facility] [address] [place] [address] PCP - General Family Medicine 06/09/24 Lele Millan DO [address] [address] [place] [address] Consulting Physician Orthopedic Surgery 02/26/22
--- OUTSIDE RECORDS SUMMARY | 2024-12-14 02:23 | XMS_ITS | Clinical Summary ---
Author Organization [facility] Address [address] [place] [address] Care Team Providers Care Knife Finisher Name Role Phone Garcia Bennett MD Unavailable [phone] Milly Cordoba MD Primary Care Provider [phone] Allergies Active Allergy Reactions Criticality Noted Date [...] MEAL 01/01/2022 Active Blood Glucose Monitoring Suppl (OyaGen VERIO REFLECT) w/Device Kit USE TO TEST BLOOD GLUCOSE DAILY DIRECTED 04/11/2021 Active RobinTOUCH VERIO test strip USE TO TEST BLOOD SUGAR ONCE DAILY DIRECTED 06/26/2021 Active B-D ULTRAFINE III SHORT PEN 31G X 8 MM Misc USE TO INJECT 1 TIME DAILY DIRECTED. 05/19/2021 Active Active Problems Problem Noted Date Diagnosed Date SBO (small bowel obstruction) ([facility]) 04/21/2021 Coronary stent patent 04/21/2021 Depression 04/21/2021 Gastroesophageal reflux disease with esophagitis 04/21/2021 History of adenomatous polyp of colon 04/21/2021 Hyperlipidemia 04/21/2021 Panic disorder 04/21/2021 History of fundoplication 02/28/2020 Overview (04/21/2021): Added automatically from request for surgery [id number] Added automatically from request for surgery [id number] PRAKASH (obstructive sleep apnea) 12/13/2019 Overview (04/21/2021): Last Assessment & Plan: Uncontrolled possible Order referral to sleep center Last Assessment & Plan: Uncontrolled possible Order referral to sleep center Atherosclerosis 10/25/2019 Epilepsy ([facility]) 10/16/2019 Overview (04/21/2021): Last Assessment & Plan: Stable Anxiety 09/16/2019 Overview (04/21/2021): Last Assessment & Plan: Try Buspar Meds failed prior: Lexapro, Celexa, Zoloft, diazepam Last Assessment & Plan: Try Buspar Meds failed prior: Lexapro, Celexa, Zoloft, diazepam Vitamin D deficiency 09/16/2019 Overview (04/21/2021): Last Assessment & Plan: Repeat levels Last Assessment & Plan: Stable Naturally controlled Chest pain 09/06/2019 Diabetes mellitus ([facility]) 06/15/2019 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 Claudication 09/15/2018 Coronary artery disease invo lving moapa coronary artery of moapa heart without angina pectoris 06/09/2018 Essential hypertension 06/09/2018 Dyslipidemia 06/09/2018 Shortness of breath 06/09/2018 Tobacco abuse counseling 06/09/2018 NE (myocardial infarction) ([facility]) Overview (02/03/2018): TIMES 2 Family History Medical History Relation Comments Diabetes [...] on file Legal Sex Female 8:39 PM MEAT WRAPPER Gender Identity Female 01/02/2022 11:38 AM CDT Sexual Orientation Straight 01/02/2022 11 :38 AM CDT Last Filed Vital Signs Vital Sign Reading Time Taken Comments Blood Pressure 155/94 09/08/2024 5:07 PM MEAT WRAPPER Pulse 73 09/08/2024 5:07 PM MEAT WRAPPER Temperature 36.4 C (97.6 F) 09/08/2024 12:28 PM MEAT WRAPPER Respiratory Rate 17 09/08/2024 5:07 PM MEAT WRAPPER Oxygen Saturation 99% 09/08/2024 5:07 PM MEAT WRAPPER Inhaled Oxygen Concentration - - Weight 89.4 kg (197 lb) 09/08/2024 12:28 PM MEAT WRAPPER Height 167.6 cm (5' 6 ) 09/08/2024 12:28 PM MEAT WRAPPER Body Mass Index 31.8 09/08/2024 12:28 PM MEAT WRAPPER Plan of Treatment Health Maintenance Due Date Last Done Comments Kidney Health Evaluation 1972 Annual Physical 1975 Diabetes: Retinopathy Eye Exam 1990 Hepatitis C 1990 DTaP, Tdap and Td Vaccines (1 - Tdap) 1991 Hepatitis B Vaccines (1 of 3 - 19+ 3-dose series) 1991 ASCVD LDL 09/07/2020 09/07/2019, 05/2019, 02/25/2018 Zoster Vaccines (1 of 2) 2022 COVID-19 Vaccine ( season) 2024 09/05/2021, 03/05/2021, 02/05/2021 Hemoglobin A1C 12/08/2024 06/09/2024, 01/2024, 10/29/2023, Additional history exists Lipid Panel 02/04/2025 02/05/2024, 09/02, 02/15/2021, Additional history exists Mammogram Screening 05/26/2025 05/26/2023, 08/18/2020, 02/21/2020, Additional history exists Colorectal Cancer Screening Colonoscopy (10 Years) 01/05/2032 01/04/2022, 10/01/2018 Pneumococcal Vaccine: 50+ Years Completed 05/24/2024, 06/18/2019 Meningococcal B Vaccine Aged [...] appropriate support at home upon discharge General Fouzia Lundberg RN Medical Devices Implanted Type Area Bookstore Manager Device Identifier Shelf Expiration Date Model / Serial / Lot Ankle Description:Plates/screws Pelvis Description:R-guru in pel vis Procedures Procedure Name Priority Date/Time Associated Diagnosis Comments LIPID PANEL Routine 09/07/2019 2:41 AM MEAT WRAPPER HEMOGLOBIN, GLYCOSYLATED Routine 09/07/2019 2:41 AM MEAT WRAPPER MG SCREENING W YARED SANJU DIGI Routine 03/22/2019 1:16 PM CDT Screening breast examination COLONOSCOPY Routine 10/01/2018 10:24 AM MEAT WRAPPER from Last 3 Months or Most Recently Relevant to Health Maintenance Results * HEMOGLOBIN, GLYCATED (09/07/2019 2:41 AM MEAT WRAPPER) HGB A1C 5.3 4.2 - 6.3 % 09/07/2019 3:42 AM MEAT WRAPPER [facility] Comment: ADA GUIDELINES 2010 5.7 TO 6.4% INCREASED RISK OF DIABETES > OR = 6.5% CONSISTENT WITH DIABETES ESTIMATED AVG GLUCOSE 105 mg/dL 09/07/2019 3:42 AM MEAT WRAPPER [facility] 09/07/2019 2:41 AM MEAT WRAPPER Jairo Goodrich MD LABORATORY Final Result [facility] [address] [place] [address], [place] [phone] * (ABNORMAL) LIPID PANEL (09/07/2019 2:41 AM MEAT WRAPPER) CHOLESTEROL 212(H) <200 MG/DL 09/07/2019 3:23 AM [facility] TRIGLYCERIDES 74 <150 MG/DL 09/07/2019 3:23 AM [facility] HDL 38(L) >40.0 MG/DL 09/07/2019 3:23 AM [facility] LDL (CALCULATED) 159(H) <100 MG/DL 09/07/2019 3:23 AM [facility] NON HDL CHOLESTEROL 174(H) <130 MG/DL 09/07/2019 3:23 AM [facility] CHOL/HDL RATIO 5.6(H) 0.0 - 4.5 09/07/2019 3:23 AM [facility] VLDL CALCULATION 15 5 - 55 MG/DL 09/07/2019 3:23 AM [facility] LIPID INTERPRETATION 09/07/2019 3:23 AM [facility] Comment: NIH CONCENSUS REPORT RECOMMENDATIONS: ADULT CHILD LOW RISK: CHOLESTEROL <200 <170 TRIGLYCERIDE <150 --- HDL >=60 --- LDL <100 <110 BORDERLINE: CHOLESTEROL 200-239 170-199 TRIGLYCERIDE 150-199 --- HDL 40-59 --- LDL 100-159 110-129 HIGH RISK: CHOLESTEROL >=240 >=200 TRIGLYCERIDE >=200 --- HDL <40 --- LDL >=160 >=130 09/07/2019 2:41 AM MEAT WRAPPER us Jairo Goodrich MD LABORATORY Final Result [facility] [address] [place] [address], * MG SCREENING W YARED SANJU DIGI [...] Recently Relevant to Health Maintenance Insurance MEDICAID Member Subscriber Plan / Payer (Ef fective 2024-Present) Name:Tammy Hammer Relation to Subscriber:Self Name:Tammy Hammer Payer ID:Not on file Group ID:Not on file Type:Not on file Address: [address] [facility] [place] Advance Directives * Full Code (Latest Code Status on File) Date Activated Date Inactivated Comments 04/21/2021 10:28 PM 04/25/2021 4:56 PM * Full Code Date Activated Date Inactivated Comments 09/06/2019 11:53 PM 09/07/2019 8:05 PM Care Teams Knife Finisher Relationship Specialty Start Date End Date Milly Cordoba MD [address] [place] [phone] PCP - General FAMILY PRACTICE 03/20/24 Garcia Bennett MD [facility] [address] [place] [address] [place] [facility] CARDIOVASCULAR DISEASE 01/21/18
--- OUTSIDE RECORDS SUMMARY | 2024-12-14 02:24 | XMS_ITS ---
Author Organization Unknown Address [address] [place], [place] [id number] Phone Care Team Providers Care Non Categorical Preschool Teacher Name Role Phone LAVELLE JUAN Attending Unavailable Immunization Immunization Date Status Additional Notes Code Code System Pneumococcal conjugate PCV20 , polysaccharide PSS647 conjugate, adjuvant, PF 05/24/2024 Completed 216 CVX [...] em Smoking History Never smoker (Never Smoked) [id number] SPEEDELO CT Sex Female Hospital Discharge Instructions Should you have any questions prior to discharge, please contact a member of your healthcare team. If you have left the hospital and have any questions, please contact your primary care physician. Reason For Referral No Data Found Plan of Treatment No Data Found Encounters Encounter Diagnosis Start Date Code Code Sys tem Neck pain 07/06/2024 [id number] [facility] Personal Care Team Section Performer Name Performer Role Active Date Inactive Da te Imaging Narrative Notes
--- OUTSIDE RECORDS SUMMARY | 2024-12-14 02:24 | XMS_ITS ---
Author Organization Unknown Address [address] [place], [place] [phone] Phone Care Team Providers Care Radiology Special Procedure Tech Name Role Phone KENDRICK Martino Attending Unavailable Immunization Immunization Date Status Additional Notes Code Code System Pneumococcal conjugate PCV20 , polysaccharide OHY215 conjugate, adjuvant, PF 05/24/2024 Completed 216 CVX [...] em Smoking History Never smoker (Never Smoked) [id number] MyDROBE CT Sex Female Hospital Discharge Instructions Should [...] Tear of lateral meniscus of knee 11/21/2022 [id number] 1 [place] Personal Care Team Section Performer Name Performer Role Active Date Inactive Da te Imaging Narrative Notes
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
--- NOTE | 2024-12-14 07:57 | PM.IMHP ---
H&P: HPI History of Present Illness Date/Time: 12/14/24 07:57 Chief Complaint: Neck and arm pain Narrative: Tammy is 54-year-old female and complains of pain in the back and both lower extremities and is not able to say that it lateralizes 1 direction or the other. She continues to have discomfort in her neck that radiates into the left upper extremity down to the 1st 2nd and 3rd digit but she also complains about this on the right. She does not report specific muscle group weakness but has dermatomal numbness as described above. She does not remember specific inciting event for either of these problems but the neck pain has been going on for months as has the back pain. She has limited distracted by pain which can be severe at times on a daily basis. Review of Systems Review of Systems: All systems reviewed & are unremarkable except as noted in HPI and below Denies chills, Denies fever(s), Denies weakness, Denies weight gain and Denies weight loss Eyes Denies change in vision and Denies diplopia ENT Denies neck pain and Denies disequilibrium Card Denies chest pain and Denies dyspnea Resp Denies cough and Denies dyspnea GI Denies abdominal pain, Denies change in bowel habits, Denies fecal incontinence and Denies vomiting Denies hematuria, Denies oliguria, Denies difficulty urinating, Denies dysuria, Denies urinary frequency, Denies urinary hesitancy, Denies urinary incontinence and Denies urinary urgency Musc Reports as per HPI, Reports back pain, Denies muscle weakness, Denies neck pain, Reports numbness and Denies stiffness Skin/ Breast Reports system reviewed and no additional complaints, except as documented Neuro Reports as per HPI, Denies burning sensations, Denies focal weakness, Reports numbness, Denies Other visual disturbances, Reports radicular pain, Reports paresthesias, Denies disequilibrium and Denies weakness Psych Reports no additional complaints, Denies depression and Denies hopelessness Endo Reports no additional complaints and Denies polyuria Justino/ Lymph Reports no additional complaints Aller/ Immun Reports no additional complaints PMFSH Past Medical History Medical History IBS (irritable bowel syndrome) Hypertension Heart disease Heart attack Headache GERD (gastroesophageal reflux disease) Diabetes Anxiety CAD (coronary artery disease) Family History Family History Father Cancer Diabetes mellitus Hypertension Social History Social History Smoking packs per day: 0.5 Smoking cigarettes per day: 10.0 Years smoked: 41 Smoking pack-years: 20.50 Smoking status: Former smoker Tobacco type: cigarettes Smoking end date: 11/13/24 Alcohol intake: never Substance use: never Substance use type: does not use Do You Feel Safe in your Home?: Yes Lack of Transportation: No Lack of Food: Never True Current Housing: I Have Housing Concerned About Future Housing: No Difficulty Paying Gas/Electric Bills: No Difficulty Paying for Meds: No Currently Unemployed: No Education: Bachelor's Degree Difficulty w/ Childcare or Family Care: No Living arrangements: with family Additional living arrangements comments: [facility] Spiritual care concerns: No Meds Home Medications and Allergies Home Medications ?Medication ?Instructions ?Recorded ?Confirmed ?Type aspirin 81 mg tablet,delayed 81 mg PO DAILY 03/30/24 12/02/24 History release divalproex 500 mg tablet,delayed 500 mg PO QAM 03/30/24 12/02/24 History release ergocalciferol (vitamin D2) 1,250 1,250 mcg PO WEEKLY 10/12/24 12/02/24 History mcg (50,000 unit) capsule (Vitamin D2) amlodipine 5 mg tablet 5 mg PO QAM 12/02/24 12/02/24 History empagliflozin 10 mg tablet 10 mg PO DAILY 12/02/24 12/02/24 History (Jardiance) famotidine 20 mg tablet 20 mg PO BID 12/02/24 12/02/24 History hydrocodone 7.5 mg-acetaminophen 1 tablet PO Q6H PRN pain 12/02/24 12/02/24 History 325 mg tablet ondansetron 4 mg disintegrating 4 mg PO BID 12/02/24 12/02/24 History tablet psyllium husk 3.4 gram/5.4 gram 2 tsp PO DAILY PRN constipation 12/02/24 12/02/24 History oral powder (Metamucil) tirzepatide 7.5 mg/0.5 mL 7.5 mg subcut WEEKLY 12/02/24 12/02/24 History subcutaneous pen injector (Mounjaro) Allergies Allergy/AdvReac Type Severity Reaction Status Date / Time quetiapine (From Seroquel) Allergy Severe Anaphylaxis Verified 12/02/24 13:57 bupropion Allergy Intermediate RESP Verified 12/02/24 13:57 DISTRESS,Swelling Penicillins Allergy Intermediate RASH, RESP Verified 12/02/24 13:57 DISTRESS Sulfa (Sulfonamide Allergy Intermediate SWELLING, Verified 12/02/24 13:57 Antibiotics) RESP DISTRESS tramadol Allergy Intermediate RESP Verified 12/02/24 13:57 DISTRESS [id number] Reductase AdvReac Intermediate INEFFECTIVE , Verified 12/02/24 13:57 Inhibitor DIZZINESS fluoxetine (From Prozac) AdvReac SUISIDAL Verified 12/02/24 13:57 IDEATION gabapentin AdvReac Headache Verified 12/02/24 13:57 Exam Narrative: General: cooperative, no acute distress, well developed, alert and awake Orientation/Consciousness: oriented to person, oriented to place and oriented to time Constitutional Limitations: no limitations Other: The patient is a normally developed, normal appearing female sitting on the examination table in no acute distress. He is awake, alert, and oriented x3 with good fund of knowledge, recall of events, and fluent speech. HENMT Head: normocephalic and atraumatic Ears: external ears normal Face/Nose/Sinus: Normal external nose present Eyes Eyelids: eyelids normal Pupils: Yes Pupils normal by confrontation EOM: EOMs intact bilaterally Neck General: Yes no meningeal signs, Yes supple and Yes no JVD Resp Effort/Inspection: normal respiratory effort and able to speak in complete sentences Cardio Rate: Yes regular rate GI Inspection: No abdominal distension Musc Other: Examination of the back reveals no tenderness. Range of motion of the back is limited with pain especially in extension. Straight leg raise is negative bilaterally. Lazaro?s test is negative bilaterally. Skin General: normal color Neuro General: Yes oriented to person, Yes oriented to place, Yes oriented to time, Yes normal cognition and Yes no meningeal signs Cranial Nerves: Yes CN's II-XII intact bilaterally Other: Motor: There is slight dorsiflexion weakness on the left but this is improved. There is no weakness in the upper extremities. Sensory: Sensation is intact to light touch throughout the upper and lower extremities bilaterally. Reflexes: Deep tendon reflexes were difficult to elicit at the knees or ankles bilaterally. There was no clonus.. Gait: Gait, station, and transfers are independent and steady for short periods of time and over short distances. Psych Appearance: grossly normal Mental status: Yes mental status grossly normal Mood: congruent mood Affect: Yes normal affect Speech/Movement: Normal speech and movement present Attitude: Yes cooperative Thought Content: Normal thought content present Review of studies: MRI of the lumbar spine was personally reviewed by me and demonstrates a right-sided L4-5 disc herniation at L4-5 and postoperative changes on the left at that same level. There are only mild degenerative changes elsewhere. Assessment and Plan Assessment and plan (1) Foraminal stenosis of cervical region: Code(s): M48.02 - Spinal stenosis, cervical region Status: Acute Assessment and Plan: Tammy is 54-year-old female with a new right-sided L4-5 herniated disc. She has the persistent issues in the neck and left greater than right upper extremity related to C5-6. We discussed surgical management of both and what that would look like. We decided to proceed with intervention involving the neck by way of C5-6 anterior cervical diskectomy and fusion I described to her that operation, its risks, potential benefits, the operative and postoperative course in detail and answered all her questions personally. We discussed risks including but not limited to neurological or functional deficits related injury of the trachea, esophagus, carotid artery, jugular vein, recurrent laryngeal nerve causing hoarseness respiration, spinal cord or nerve roots causing permanent neurologic deficit, need for reoperation secondary to infection, bleeding, CSF leak, adjacent level disease, recurrent residual pathology or instability, malposition migration of the hardware or nonunion, failure of the procedure to relieve his pain or symptoms, persistent pain, medical complications related anesthesia or surgery, etc.. She indicates understanding and elects to proceed with that operation.
--- NOTE | 2024-12-14 07:59 | WPDHPUPDATE1 ---
History and Physical Update Update Date/Time: 12/14/24 07:59 History and Physical has been reviewed, including an updated exam of the patient. There are NO changes in the patient's condition. Risks, benefits, and alternatives have been discussed and questions answered. Patient agrees to proceed with procedure.
[2024-12-14] MEDS: LACTATED RINGERS 1,000 ML 30 ML IV CONT ×2 (11:00→15:37)
[2024-12-14 11:20] LABS: Glucose Point of Care 112 mg/dl (65-105)
[2024-12-14 11:39] LABS: Hemoglobin A1C 5.8 % (<5.7)
--- NOTE | 2024-12-14 13:26 | P.PNAN_ITS ---
Anes - Initial Pre Proc Eval Procedure: Operation Date: 12/14/24 12:30 Proposed Procedures p C5-6 Anterior Cervical Discectomy and Fusion - Jordy Bobo MD Date/Time: 12/14/24 13:26 Surgeon: Jordy Bobo MD Pre Op Diagnosis: C5-5 herniated nucleous pulposis Patient Data Age: 54 Gender: F Height: 1.66 m Weight: 89.9 kg Last Vital Signs Temp 36.1 C L 12/14/24 12:43 Pulse 89 12/14/24 12:43 Resp 18 12/14/24 12:43 BP 164/77 H 12/14/24 12:43 Pulse Ox 98 12/14/24 12:43 O2 Del Method Room Air 12/14/24 12:43 Allergies Allergy/AdvReac Type Severity Reaction Status Date / Time quetiapine (From Seroquel) Allergy Severe Anaphylaxis Verified 12/14/24 12:37 bupropion Allergy Intermediate RESP Verified 12/14/24 12:37 DISTRESS,Swelling Penicillins Allergy Intermediate RASH, RESP Verified 12/14/24 12:37 DISTRESS Sulfa (Sulfonamide Allergy Intermediate SWELLING, Verified 12/14/24 12:37 Antibiotics) RESP DISTRESS tramadol Allergy Intermediate RESP Verified 12/14/24 12:37 DISTRESS [id number] Reductase AdvReac Intermediate INEFFECTIVE , Verified 12/14/24 12:37 Inhibitor DIZZINESS fluoxetine (From Prozac) AdvReac SUISIDAL Verified 12/14/24 12:37 IDEATION gabapentin AdvReac Headache Verified 12/14/24 12:37 Home Medications ?Medication ?Instructions ?Recorded ?Confirmed ?Type aspirin 81 mg tablet,delayed 81 mg PO DAILY 03/30/24 12/14/24 History release divalproex 500 mg tablet,delayed 500 mg PO QAM 03/30/24 12/14/24 History release ergocalciferol (vitamin D2) 1,250 1,250 mcg PO WEEKLY 10/12/24 12/14/24 History mcg (50,000 unit) capsule (Vitamin D2) amlodipine 5 mg tablet 5 mg PO QAM 12/02/24 12/14/24 History empagliflozin 10 mg tablet 10 mg PO DAILY 12/02/24 12/14/24 History (Jardiance) famotidine 20 mg tablet 20 mg PO BID 12/02/24 12/14/24 History hydrocodone 7.5 mg-acetaminophen 1 tablet PO Q6H PRN pain 12/02/24 12/14/24 History 325 mg tablet ondansetron 4 mg disintegrating 4 mg PO BID 12/02/24 12/14/24 History tablet psyllium husk 3.4 gram/5.4 gram 2 tsp PO DAILY PRN constipation 12/02/24 12/14/24 History oral powder (Metamucil) tirzepatide 7.5 mg/0.5 mL 7.5 mg subcut WEEKLY 12/02/24 12/14/24 History subcutaneous pen injector (Mounjaro) Laboratory Tests 12/14/24 12/14/24 10:53 11:13 POC Capillary Glucose 112 H mg/dl (65-105) Hemoglobin A1c 5.8 H % (<5.7) Patient hx anesthesia problems: none Family hx anesthesia problems: none Results Review: All pre-operative results and documents have been reviewed as part of the pre- operative evaluation. [facility] Past Medical History Medical History IBS (irritable bowel syndrome) Hypertension Heart disease Heart attack Headache GERD (gastroesophageal reflux disease) Diabetes Anxiety CAD (coronary artery disease) Family History Family History Father Cancer Diabetes mellitus Hypertension Social History Social History Smoking packs per day: 0.5 Smoking cigarettes per day: 10.0 Years smoked: 41 Smoking pack-years: 20.50 Smoking status: Former smoker Tobacco type: cigarettes Smoking end date: 11/13/24 Alcohol intake: never Substance use: never Substance use type: does not use Do You Feel Safe in your Home?: Yes Lack of Transportation: No Lack of Food: Never True Current Housing: I Have Housing Concerned About Future Housing: No Difficulty Paying Gas/Electric Bills: No Difficulty Paying for Meds: No Currently Unemployed: No Education: Bachelor's Degree Difficulty w/ Childcare or Family Care: No Living arrangements: with family Additional living arrangements comments: [facility] Spiritual care concerns: No Anes - Eval Final PreProcedure Day of Procedure 12/14/24 13:26 Patient weight: obese Heart: regular rate and rhythm Lungs: decreased breath sounds Airway: Mallampati scale class 1 Neurological: alert and oriented Last oral intake: >/= 8 hours ASA classification: III Emergent: no Anesthetic plan: proceed Anesthesia type and monitoring: general ETT and standard monitoring Results Review: All pre-operative results and documents have been reviewed as part of the pre- operative evaluation. Informed Consent: The patient's anesthetic plan and its attendant risks and benefits were discussed with the patient/family/POA. Questions were solicited and answers provided to the satisfaction of the patient/family/POA.
[2024-12-14] MEDS: ceFAZolin 2 GM/D5W 50 ML 2 GM/50 ML BAG IVPB (14:14)
[2024-12-14] MEDS: LIDO 1%/EPINEPHRINE 1:100,000 50 ML VIAL 10 ML INFILTRATE (14:52)
[2024-12-14] MEDS: fentaNYL CITRATE INJ (*CRX) 100 MCG/2 ML VIAL 25 MCG IV PUSH ×3 (16:04→16:13)
[2024-12-14 16:21] LABS: Glucose Point of Care 132 mg/dl (65-105)
[2024-12-14] MEDS: oxyCODONE HCL (*CRX) 5 MG TAB IR PO (16:50)
--- NOTE | 2024-12-20 18:57 | P.OP_ITS ---
Procedure Note - Detailed Date of Procedure 12/20/24 Pre-op Diagnosis C5-6 herniated nucleous pulposis Post-op Diagnosis Same Procedure Performed C5-6 complete diskectomy and bilateral neural foraminotomy, C5-6 interbody arthrodesis utilizing peek interbody device, local autograft and Magnetos, C5-6 anterior cervical plating with locking plate and screws, use of the operating microscope Surgeon Jordy Bobo MD Anesthesia General Description of Procedure patient was brought to the operating room in the supine position, was sedated, intubated and placed under general anesthesia in routine fashion. The area of operation on the right side of her neck was examined, marked for incision, prepped and draped in routine sterile fashion. Incision was marked from the midline over the medial aspect of the sternocleidomastoid muscle curving linear transverse fashion 3 fingerbreadths above the sternal notch. This area was injected with 0.5% lidocaine with 1 200,000 epinephrine. Intravenous antibiotics given prior to incision. Incision was made with a 10 blade scalpel down to the platysma muscle. The skin was undermined the platysma muscle was divided longitudinally with its fibers using Metzenbaum scissors. A plane was then dissected medial to the sternocleidomastoid muscle down to the anterior aspect of the spine using the finger and Metzenbaum scissors. A verifying x-rays obtained to verify level of operation. At C5-6 the longus colli muscle was dissected free of the anterior aspect of the spine using Bovie cautery. A Shadow Line retractor system was placed and cast bar pins were placed into C5 and C6 and distracted placed over the disc space. The disc space was entered using a 15 blade scalpel cutting along the margin of the bone above and below. A curved curette and pituitary rongeur were used to remove as much cartilaginous endplate and disc material as possible down to the annulus and ligament posteriorly. A Midas Ziyad drill was used to bur down the endplates to bleeding cortical flat surfaces as well as to begin a bony foraminotomy bilaterally. Under microscopy a curved curette was used to come through the annulus and ligament. A 2. Kerrison punches was then used to remove annulus, ligament, posterior osteophyte and to complete a bony foraminotomy bilaterally. Disc herniation was discovered and removed from beneath the ligament at this point of the operation. These maneuvers were performed until a nerve hook could be placed out each foramen to confirm lack of compression. The disc space was sized a 7 mm interbody device was chosen and filled with local autograft bone and magnetos. The interbody device was then placed to a 1-2 mm countersink within the disc space. The [place] pins were removed and the distraction relieved. A 12 mm anterior plate was chosen placed in position and secured using 414 x 4 mm anterior screws advanced into the locking mechanism of the plate to hand tightness. The locking mechanism was then engaged at each screw. A verifying x-rays obtained to verify good position of the instrumentation which was cofirmed. The wound was copiously irrigated with bacitracin irrigation all bleeding stopped with bipolar and Bovie cautery and Gelfoam thrombin powder. The wound was then closed in layered fashion with 3-0 Vicryl interrupted sutures in the platysmal muscle and in the dermis. The skin was closed with a running 4-0 Monocryl subcuticular stitch and dressed with Dermabond. The patient was allowed to wake up in the operating room and was taken to the recovery room in stable condition. There were no immediate complications of this operation. All counts were reported correct at the end of the case. Blood loss was 25 cc. The patient was neurologically at her baseline postoperatively. CPT codes: 44584, 55858, 73978, 54753 Estimated Blood Loss 25 Complications None Condition Stable Disposition PACU [facility] Billing Surgery - Charge Forward: Surgery Billing
== END 2024-12-14 17:33 | disposition home or self-care (01) ==
PROVIDERS: PCP Physician Assistant; Visit Provider Neurological Surgery
PROC: (CPT 63030; principal; 2024-12-14 12:30)
DX: M48.02 Spinal stenosis, cervical region (principal); M50.122 Cervical disc disorder at C5-C6 level with radiculopathy; E11.9 Type 2 diabetes mellitus without complications; I25.10 Atherosclerotic heart disease of native coronary artery without angina pectoris; K58.9 Irritable bowel syndrome, unspecified; I11.9 Hypertensive heart disease without heart failure; I25.2 Old myocardial infarction; K21.9 Gastro-esophageal reflux disease without esophagitis; F41.9 Anxiety disorder, unspecified; E66.9 Obesity, unspecified; Z68.32 Body mass index [BMI] 32.0-32.9, adult; Z79.82 Long term (current) use of aspirin; Z79.84 Long term (current) use of oral hypoglycemic drugs; Z79.891 Long term (current) use of opiate analgesic; Z79.85 Long-term (current) use of injectable non-insulin antidiabetic drugs; Z87.891 Personal history of nicotine dependence; Z80.9 Family history of malignant neoplasm, unspecified
CPT/HCPCS: 22551; 22853; 20936; 36415; 82948; 83036; 99199; A9270; C1713; J0690; J1100; J1171; J2003; J2004; J2250; J2405; J2704; J3010; J7120